=== PATIENT | female | born 1980 | race Caucasian/White ===

== ENCOUNTER 2018-09-22 06:23 | Inpatient (IN) | payer MEDICAID, OTHER ==
[2018-09-22] MEDS: LIDOCAINE 4% CR TOP (06:58)
[2018-09-22 07:08] LABS: ADD MAN DIFF? NO
[2018-09-22] MEDS: CEFTRIAXONE 2 GM/50 ML (PMX) 50 ML IVPB ×2 (07:08→20:27)
[2018-09-22] MEDS: NALOXONE (0.4 MG/ML) INJ IV (07:08)
[2018-09-22] MEDS: DEXAMETHASONE 10 MG/ML 1 ML INJ IV (07:08)
[2018-09-22] MEDS: SODIUM CHLORIDE 0.9% 1L BAG IV* (07:09)
[2018-09-22] MEDS: ACETAMINOPHEN 650 MG SUPP PR (07:10)
[2018-09-22 07:11] LABS: WHITE BLOOD COUNT 16.8 10^3/ul (4.8-10.8)
[2018-09-22 07:11] LABS: BASOPHILS % 0.2 % (0.0-2.0); EOSINOPHILS % 0.2 % (0.0-7.0); HEMOGLOBIN 13.5 g/dl (12.0-16.0); LYMPHOCYTES # 1.2 10^3/ul (0.8-2.9); LYMPHOCYTES % 7.1 % (15.0-51.0); MEAN CORPUSCULAR HEMOGLOBIN 29.6 pg (29.0-33.0); MEAN CORPUSCULAR HGB CONC 34.6 g/dl (32.0-37.0); MEAN CORPUSCULAR VOLUME 85.5 fl (82.0-101.0); MEAN PLATELET VOLUME 8.6 fl (7.4-10.4); MONOCYTE # 1.4 10^3/ul (0.3-0.9); MONOCYTES % 8.5 % (0.0-11.0); NEUTROPHILS % 83.2 % (39.0-77.0); PLATELET COUNT 338 10^3/UL (140-415); RED BLOOD COUNT 4.56 10^6/ul (4.20-5.40); RED CELL DISTRIBUTION WIDTH 11.8 % (11.5-14.5)
[2018-09-22 07:30] LABS: INR 1.11; PARTIAL THROMBOPLASTIN TIME 29.5 Sec (23.0-35.0); PROTIME 14.4 Sec (11.9-14.9); PT RATIO 1.1
[2018-09-22 07:35] LABS: ADD UMIC YES; UR AMORPHOUS CRYSTAL FEW /HPF (NONE SEEN); UR ASCORBIC ACID 40 mg/dL (NEGATIVE); UR BILIRUBIN (Dip) NEGATIVE (NEGATIVE); UR BLOOD (Dip) 2+ mg/dL (NEGATIVE); UR CLARITY CLOUDY (CLEAR); UR COLOR YELLOW (YELLOW); UR GLUCOSE (Dip) NEGATIVE (NEGATIVE); UR KETONES (Dip) NEGATIVE (NEGATIVE); UR LEUKOCYTE ESTERASE (Dip) NEGATIVE Leu/ul (NEGATIVE); UR NITRITE (Dip) NEGATIVE (NEGATIVE); UR RBC 45 /HPF (0-5); UR SPECIFIC GRAVITY (Dip) 1.019 (1.003-1.030); UR SQUAMOUS EPITHELIAL CELL FEW /HPF (FEW); UR TOTAL PROTEIN (Dip) NEGATIVE (NEGATIVE); UR UROBILINOGEN (Dip) NEGATIVE (NEGATIVE); UR WBC 6 /HPF (0-5)
[2018-09-22 07:36] LABS: CANNABINOIDS Negative (NEGATIVE)
[2018-09-22 07:40] LABS: OPIATES Positive (NEGATIVE)
[2018-09-22 07:41] LABS: ALANINE AMINOTRANSFERASE 17 IU/L (13-69); ALBUMIN 4.1 g/dl (3.3-4.9); ALBUMIN/GLOBULIN RATIO 1.13; ALKALINE PHOSPHATASE 46 IU/L (42-121); ANION GAP 12 (5-13); ASPARTATE AMINO TRANSFERASE 17 IU/L (15-46); BILIRUBIN,INDIRECT 0.8 mg/dl (0-1.1); BILIRUBIN,TOTAL 0.8 mg/dl (0.2-1.3); BLOOD UREA NITROGEN 16 mg/dl (7-20); CALCIUM 8.6 mg/dl (8.4-10.2); CARBON DIOXIDE 23 mmol/L (21-31); CHLORIDE 93 mmol/L (97-110); CREATININE 0.51 mg/dl (0.44-1.00); Estimated GFR > 60 mL/min (>60); GLUCOSE 126 mg/dl (70-220); POTASSIUM 4.4 mmol/L (3.5-5.1); SODIUM 128 mmol/L (135-144); TOTAL PROTEIN 7.7 g/dl (6.1-8.1)
[2018-09-22 07:46] LABS: AMPHETAMINE/METHAMPHETAMINE NEGATIVE (NEGATIVE); BARBITURATES NEGATIVE (NEGATIVE); BENZODIAZEPINES NEGATIVE (NEGATIVE); COCAINE NEGATIVE (NEGATIVE)
[2018-09-22 07:48] LABS: ACETAMINOPHEN < 10.0 ug/ml (10.0-30.0); SALICYLATE < 1.0 mg/dl (5.0-30.0)
[2018-09-22 07:49] LABS: CREATINE KINASE < 20 IU/L (23-200)
[2018-09-22 07:56] LABS: CK-MB < 0.22 ng/ml (0.0-2.4); TROPONIN-I < 0.012 ng/ml (0.000-0.120)
[2018-09-22 08:04] LABS: ETHANOL < 10.0 mg/dl (0-0)
[2018-09-22] MEDS: VANCOMYCIN 1 GM (PMX) 250 ML IVPB (09:27)
[2018-09-22] MEDS: SOD CHLORIDE 0.9% 1,000 ML IV ×4 (09:28→23:40)
[2018-09-22] MEDS: ONDANSETRON 4 MG INJ IV (10:37)
[2018-09-22 10:48] LABS: LACTIC ACID 1.3 mmol/L (0.5-2.0)
[2018-09-22] MEDS ORDERED: VANCOMYCIN IV PER PHARMACY XX (11:30)
[2018-09-22] MEDS ORDERED: NACL 0.9% 3 ML SYG IV (17:00)
[2018-09-22] MEDS ORDERED: VANCOMYCIN 1 GM 250 ML IVPB (18:00)
[2018-09-22] MEDS: DEXTROSE 5%-0.45% NACL 1,000 ML IV (18:11)
[2018-09-22] MEDS: ACYCLOVIR 500 MG in SOD CHLORIDE 0.9% 100 ML IVPB ×2 (18:11→22:59)
[2018-09-22] MEDS: VANCOMYCIN 1 GM 250 ML IVPB (20:35)
[2018-09-23 05:08] LABS: ADD MAN DIFF? NO
[2018-09-23 05:35] LABS: ALANINE AMINOTRANSFERASE 17 IU/L (13-69); ALBUMIN 3.1 g/dl (3.3-4.9); ALBUMIN/GLOBULIN RATIO 1.03; ALKALINE PHOSPHATASE 35 IU/L (42-121); ANION GAP 9 (5-13); ASPARTATE AMINO TRANSFERASE 21 IU/L (15-46); BILIRUBIN,INDIRECT 0.5 mg/dl (0-1.1); BILIRUBIN,TOTAL 0.5 mg/dl (0.2-1.3); BLOOD UREA NITROGEN 7 mg/dl (7-20); CALCIUM 7.2 mg/dl (8.4-10.2); CARBON DIOXIDE 19 mmol/L (21-31); CHLORIDE 109 mmol/L (97-110); CREATININE 0.34 mg/dl (0.44-1.00); Estimated GFR > 60 mL/min (>60); GLUCOSE 126 mg/dl (70-220); POTASSIUM 3.8 mmol/L (3.5-5.1); SODIUM 137 mmol/L (135-144); TOTAL PROTEIN 6.1 g/dl (6.1-8.1)
[2018-09-23] MEDS: DEXTROSE 5%-0.45% NACL 1,000 ML IV (05:55)
[2018-09-23] MEDS: ACYCLOVIR 500 MG in SOD CHLORIDE 0.9% 100 ML IVPB ×3 (05:55→21:18)
[2018-09-23 06:03] LABS: BASOPHILS % 0.2 % (0.0-2.0); EOSINOPHILS % 0.1 % (0.0-7.0); HEMATOCRIT 41.8 % (37.0-47.0); LYMPHOCYTES # 1.1 10^3/ul (0.8-2.9); LYMPHOCYTES % 7.1 % (15.0-51.0); MEAN CORPUSCULAR HEMOGLOBIN 30.2 pg (29.0-33.0); MEAN CORPUSCULAR HGB CONC 33.5 g/dl (32.0-37.0); MEAN CORPUSCULAR VOLUME 90.3 fl (82.0-101.0); MEAN PLATELET VOLUME 9.1 fl (7.4-10.4); MONOCYTES % 6.3 % (0.0-11.0); NEUTROPHIL # 13.1 10^3/ul (1.6-7.5); NEUTROPHILS % 85.5 % (39.0-77.0); PLATELET COUNT 275 10^3/UL (140-415); RED BLOOD COUNT 4.63 10^6/ul (4.20-5.40)
[2018-09-23 06:03] LABS: WHITE BLOOD COUNT 15.3 10^3/ul (4.8-10.8)
[2018-09-23 08:19] LABS: ERYTHROCYTE SEDIMENTATION RATE 48 mm/Hr (0-20)
[2018-09-23] MEDS: VANCOMYCIN 1 GM 250 ML IVPB ×2 (10:01→21:27)
[2018-09-23] MEDS: DOXYCYCLINE 100 MG TAB PO (10:14)
[2018-09-23] MEDS: CEFTRIAXONE 2 GM/50 ML (PMX) 50 ML IVPB ×2 (10:27→21:18)
[2018-09-23] MEDS: DOXYCYCLINE 100 MG in SOD CHLORIDE 0.9% 250 ML IVPB ×2 (12:51→21:29)
[2018-09-23 15:08] LABS: RAPID PLASMA REAGIN NONREACTIVE (NR)
[2018-09-23 16:11] LABS: CSF MN% 38.9 %; CSF PMN% 61.1 %; CSF RBC 0 /uL (0-0)
[2018-09-23 16:16] LABS: CSF MN% 48.2 %; CSF PMN% 51.8 %; CSF RBC 0 /uL (0-0)
[2018-09-23 16:20] LABS: TOTAL PROTEIN,CSF 120 mg/dl (12-60)
[2018-09-23 16:21] LABS: GLUCOSE,CSF < 20 mg/dl (50-80)
[2018-09-23 16:48] LABS: CSF COLOR COLORLESS
[2018-09-23 16:48] LABS: CSF CLARITY HAZY; CSF VOLUME 11.7 ml; CSF WBC 1261 /cmm (0-10); CSF#TUBE COUNT TUBE#1; CSF#TUBES REC'D 4
[2018-09-23 16:49] LABS: CSF CLARITY HAZY; CSF COLOR COLORLESS; CSF WBC 993 /cmm (0-10)
[2018-09-23 16:50] LABS: CSF VOLUME 11.5 ml; CSF#TUBE COUNT TUBE#4; CSF#TUBES REC'D 4
[2018-09-23 21:18] LABS: VANCOMYCIN,TROUGH < 5.0 ug/ml (10.0-20.0)
[2018-09-24] MEDS: ACYCLOVIR 500 MG in SOD CHLORIDE 0.9% 100 ML IVPB (05:06)
[2018-09-24] MEDS: VANCOMYCIN 1 GM 250 ML IVPB ×3 (05:11→21:13)
[2018-09-24 05:41] LABS: ADD MAN DIFF? NO
[2018-09-24 05:52] LABS: BASOPHILS % 0.2 % (0.0-2.0); EOSINOPHILS # 0.1 10^3/ul (0.0-0.5); EOSINOPHILS % 0.4 % (0.0-7.0); HEMATOCRIT 40.2 % (37.0-47.0); HEMOGLOBIN 14.6 g/dl (12.0-16.0); LYMPHOCYTES # 1.3 10^3/ul (0.8-2.9); LYMPHOCYTES % 7.4 % (15.0-51.0); MEAN CORPUSCULAR HGB CONC 36.3 g/dl (32.0-37.0); MEAN CORPUSCULAR VOLUME 82.5 fl (82.0-101.0); MEAN PLATELET VOLUME 8.3 fl (7.4-10.4); MONOCYTE # 1.4 10^3/ul (0.3-0.9); MONOCYTES % 8.1 % (0.0-11.0); NEUTROPHIL # 14.2 10^3/ul (1.6-7.5); NEUTROPHILS % 83.2 % (39.0-77.0); PLATELET COUNT 305 10^3/UL (140-415); RED BLOOD COUNT 4.87 10^6/ul (4.20-5.40); RED CELL DISTRIBUTION WIDTH 11.9 % (11.5-14.5)
[2018-09-24 05:52] LABS: WHITE BLOOD COUNT 17.1 10^3/ul (4.8-10.8)
[2018-09-24 06:06] LABS: ANION GAP 10 (5-13); BLOOD UREA NITROGEN 7 mg/dl (7-20); CALCIUM 7.9 mg/dl (8.4-10.2); CARBON DIOXIDE 26 mmol/L (21-31); CHLORIDE 92 mmol/L (97-110); CREATININE 0.41 mg/dl (0.44-1.00); Estimated GFR > 60 mL/min (>60); GLUCOSE 95 mg/dl (70-220); POTASSIUM 3.5 mmol/L (3.5-5.1); SODIUM 128 mmol/L (135-144)
[2018-09-24] MEDS: CEFTRIAXONE 2 GM/50 ML (PMX) 50 ML IVPB ×2 (08:37→21:13)
[2018-09-24] MEDS: DOXYCYCLINE 100 MG in SOD CHLORIDE 0.9% 250 ML IVPB ×2 (08:38→21:28)
[2018-09-24 13:27] LABS: ANA SCREEN NEGATIVE (NEGATIVE); ANCA SCREEN NEGATIVE (NEGATIVE); MYELOPEROXIDASE ANTIBODY <1.0 AI; PROTEINASE-3 ANTIBODY <1.0 AI
[2018-09-24] MEDS: ACETAMINOPHEN 500 MG TAB PO (15:19)
[2018-09-24 19:59] LABS: SODIUM,URINE RANDOM 156 mmol/L (30-90)
[2018-09-24 20:48] LABS: VANCOMYCIN,TROUGH 7.7 ug/ml (10.0-20.0)
[2018-09-25] MEDS: VANCOMYCIN HCL 1.25 GM in SOD CHLORIDE 0.9% 250 ML IVPB ×3 (04:45→20:34)
[2018-09-25 08:39] LABS: ADD MAN DIFF? NO
[2018-09-25 08:49] LABS: WHITE BLOOD COUNT 13.8 10^3/ul (4.8-10.8)
[2018-09-25 08:49] LABS: BASOPHILS % 0.1 % (0.0-2.0); EOSINOPHILS % 0.1 % (0.0-7.0); HEMATOCRIT 36.9 % (37.0-47.0); HEMOGLOBIN 13.2 g/dl (12.0-16.0); LYMPHOCYTES # 0.7 10^3/ul (0.8-2.9); LYMPHOCYTES % 4.9 % (15.0-51.0); MEAN CORPUSCULAR HEMOGLOBIN 29.6 pg (29.0-33.0); MEAN CORPUSCULAR HGB CONC 35.8 g/dl (32.0-37.0); MEAN CORPUSCULAR VOLUME 82.7 fl (82.0-101.0); MEAN PLATELET VOLUME 7.9 fl (7.4-10.4); MONOCYTES % 7.5 % (0.0-11.0); NEUTROPHIL # 11.9 10^3/ul (1.6-7.5); NEUTROPHILS % 86.8 % (39.0-77.0); PLATELET COUNT 302 10^3/UL (140-415); RED BLOOD COUNT 4.46 10^6/ul (4.20-5.40); RED CELL DISTRIBUTION WIDTH 11.9 % (11.5-14.5)
[2018-09-25 09:07] LABS: ANION GAP 9 (5-13); BLOOD UREA NITROGEN 7 mg/dl (7-20); CALCIUM 7.7 mg/dl (8.4-10.2); CARBON DIOXIDE 26 mmol/L (21-31); CHLORIDE 91 mmol/L (97-110); CREATININE 0.39 mg/dl (0.44-1.00); Estimated GFR > 60 mL/min (>60); GLUCOSE 139 mg/dl (70-220); POTASSIUM 3.5 mmol/L (3.5-5.1); SODIUM 126 mmol/L (135-144)
[2018-09-25] MEDS: CEFTRIAXONE 2 GM/50 ML (PMX) 50 ML IVPB ×2 (09:56→20:34)
[2018-09-25] MEDS: DOXYCYCLINE 100 MG in SOD CHLORIDE 0.9% 250 ML IVPB ×2 (10:41→20:34)
[2018-09-25 10:45] LABS: PROCALCITONIN 0.06 ng/mL (0.00-0.10)
[2018-09-25] MEDS: ACETAMINOPHEN 650MG/20.3ML CUP NGT (12:45)
[2018-09-25] MEDS: SODIUM CHLORIDE 1 GM TAB PO ×2 (13:39→20:34)
[2018-09-26 04:11] LABS: ADD MAN DIFF? NO
[2018-09-26 04:16] LABS: WHITE BLOOD COUNT 13.9 10^3/ul (4.8-10.8)
[2018-09-26 04:16] LABS: BASOPHILS % 0.2 % (0.0-2.0); EOSINOPHILS # 0.1 10^3/ul (0.0-0.5); EOSINOPHILS % 0.6 % (0.0-7.0); HEMATOCRIT 36.3 % (37.0-47.0); HEMOGLOBIN 12.9 g/dl (12.0-16.0); LYMPHOCYTES # 0.6 10^3/ul (0.8-2.9); LYMPHOCYTES % 4.6 % (15.0-51.0); MEAN CORPUSCULAR HEMOGLOBIN 29.6 pg (29.0-33.0); MEAN CORPUSCULAR HGB CONC 35.5 g/dl (32.0-37.0); MEAN CORPUSCULAR VOLUME 83.3 fl (82.0-101.0); MEAN PLATELET VOLUME 7.9 fl (7.4-10.4); MONOCYTE # 0.9 10^3/ul (0.3-0.9); MONOCYTES % 6.2 % (0.0-11.0); NEUTROPHIL # 12.2 10^3/ul (1.6-7.5); NEUTROPHILS % 87.8 % (39.0-77.0); PLATELET COUNT 273 10^3/UL (140-415); RED BLOOD COUNT 4.36 10^6/ul (4.20-5.40); RED CELL DISTRIBUTION WIDTH 11.7 % (11.5-14.5)
[2018-09-26 04:53] LABS: ANION GAP 10 (5-13); BLOOD UREA NITROGEN 8 mg/dl (7-20); CALCIUM 7.9 mg/dl (8.4-10.2); CARBON DIOXIDE 25 mmol/L (21-31); CHLORIDE 93 mmol/L (97-110); CREATININE 0.37 mg/dl (0.44-1.00); Estimated GFR > 60 mL/min (>60); GLUCOSE 154 mg/dl (70-220); POTASSIUM 3.6 mmol/L (3.5-5.1); SODIUM 128 mmol/L (135-144)
[2018-09-26 04:56] LABS: VANCOMYCIN,TROUGH 10.8 ug/ml (10.0-20.0)
[2018-09-26] MEDS: ACETAMINOPHEN 650MG/20.3ML CUP NGT ×2 (05:03→16:16)
[2018-09-26] MEDS: VANCOMYCIN HCL 1.25 GM in SOD CHLORIDE 0.9% 250 ML IVPB (05:09)
[2018-09-26] MEDS: SODIUM CHLORIDE 1 GM TAB PO ×3 (09:28→20:09)
[2018-09-26] MEDS: CEFTRIAXONE 2 GM/50 ML (PMX) 50 ML IVPB ×2 (09:28→20:06)
[2018-09-26] MEDS: DOXYCYCLINE 100 MG in SOD CHLORIDE 0.9% 250 ML IVPB ×2 (09:39→20:09)
[2018-09-26 11:23] LABS: ADD UMIC YES; UR ASCORBIC ACID 40 mg/dL (NEGATIVE); UR BACTERIA FEW /HPF (NONE SEEN); UR BILIRUBIN (Dip) NEGATIVE (NEGATIVE); UR BLOOD (Dip) 1+ mg/dL (NEGATIVE); UR CLARITY CLOUDY (CLEAR); UR COLOR YELLOW (YELLOW); UR GLUCOSE (Dip) NEGATIVE (NEGATIVE); UR GRANULAR CAST FEW /HPF (NONE SEEN); UR KETONES (Dip) NEGATIVE (NEGATIVE); UR LEUKOCYTE ESTERASE (Dip) NEGATIVE Leu/ul (NEGATIVE); UR MUCUS MODERATE /HPF (NONE SEEN); UR NITRITE (Dip) NEGATIVE (NEGATIVE); UR RBC 36 /HPF (0-5); UR SPECIFIC GRAVITY (Dip) 1.023 (1.003-1.030); UR TOTAL PROTEIN (Dip) 1+ mg/dl (NEGATIVE); UR UROBILINOGEN (Dip) NEGATIVE (NEGATIVE); UR WBC 8 /HPF (0-5)
[2018-09-26] MEDS: VANCOMYCIN HCL 1.5 GM in SOD CHLORIDE 0.9% 250 ML IVPB ×2 (13:00→20:52)
[2018-09-26 21:26] LABS: HERPES SIMPLEX 1 DNA NOT DETECTED; HERPES SIMPLEX 2 DNA NOT DETECTED; HERPES SIMPLEX PCR SOURCE CEREBROSPINAL FLUID
[2018-09-27] MEDS: VANCOMYCIN HCL 1.5 GM in SOD CHLORIDE 0.9% 250 ML IVPB ×4 (04:49→21:58)
[2018-09-27 05:40] LABS: ADD MAN DIFF? NO
[2018-09-27 05:52] LABS: BASOPHILS % 0.1 % (0.0-2.0); EOSINOPHILS # 0.2 10^3/ul (0.0-0.5); EOSINOPHILS % 1.2 % (0.0-7.0); HEMATOCRIT 37.7 % (37.0-47.0); HEMOGLOBIN 13.5 g/dl (12.0-16.0); LYMPHOCYTES # 0.6 10^3/ul (0.8-2.9); LYMPHOCYTES % 4.4 % (15.0-51.0); MEAN CORPUSCULAR HGB CONC 35.8 g/dl (32.0-37.0); MEAN CORPUSCULAR VOLUME 83.8 fl (82.0-101.0); MEAN PLATELET VOLUME 8.6 fl (7.4-10.4); MONOCYTE # 0.8 10^3/ul (0.3-0.9); MONOCYTES % 5.8 % (0.0-11.0); NEUTROPHIL # 12.3 10^3/ul (1.6-7.5); NEUTROPHILS % 87.9 % (39.0-77.0); PLATELET COUNT 287 10^3/UL (140-415); RED CELL DISTRIBUTION WIDTH 11.9 % (11.5-14.5)
[2018-09-27 06:16] LABS: ALANINE AMINOTRANSFERASE 23 IU/L (13-69); ALBUMIN 3.5 g/dl (3.3-4.9); ALBUMIN/GLOBULIN RATIO 1.12; ALKALINE PHOSPHATASE 47 IU/L (42-121); ANION GAP 11 (5-13); ASPARTATE AMINO TRANSFERASE 19 IU/L (15-46); BILIRUBIN,INDIRECT 0.5 mg/dl (0-1.1); BILIRUBIN,TOTAL 0.5 mg/dl (0.2-1.3); BLOOD UREA NITROGEN 8 mg/dl (7-20); CALCIUM 8.3 mg/dl (8.4-10.2); CARBON DIOXIDE 26 mmol/L (21-31); CHLORIDE 93 mmol/L (97-110); CREATININE 0.34 mg/dl (0.44-1.00); Estimated GFR > 60 mL/min (>60); GLUCOSE 138 mg/dl (70-220); POTASSIUM 3.7 mmol/L (3.5-5.1); SODIUM 130 mmol/L (135-144); TOTAL PROTEIN 6.6 g/dl (6.1-8.1)
[2018-09-27] MEDS: ACETAMINOPHEN 650MG/20.3ML CUP NGT ×2 (06:18→16:03)
[2018-09-27] MEDS: CEFTRIAXONE 2 GM/50 ML (PMX) 50 ML IVPB ×2 (08:56→20:59)
[2018-09-27] MEDS: FLUCONAZOLE 200 MG TAB NGT (08:56)
[2018-09-27] MEDS: DOXYCYCLINE 100 MG in SOD CHLORIDE 0.9% 250 ML IVPB ×2 (08:57→22:02)
[2018-09-27] MEDS: SODIUM CHLORIDE 1 GM TAB PO ×3 (08:57→21:11)
[2018-09-27 21:12] LABS: VANCOMYCIN,TROUGH 15.6 ug/ml (10.0-20.0)
[2018-09-27 21:21] LABS: VDRL, CSF NON-REACTIVE
[2018-09-28] MEDS: VANCOMYCIN HCL 1.5 GM in SOD CHLORIDE 0.9% 250 ML IVPB ×3 (04:58→21:50)
[2018-09-28 05:17] LABS: ADD MAN DIFF? NO
[2018-09-28 05:21] LABS: ABNORMAL IP MESSAGE 1; BASOPHILS % 0.3 % (0.0-2.0); EOSINOPHILS # 0.2 10^3/ul (0.0-0.5); EOSINOPHILS % 1.6 % (0.0-7.0); HEMATOCRIT 37.2 % (37.0-47.0); HEMOGLOBIN 12.9 g/dl (12.0-16.0); LYMPHOCYTES # 0.6 10^3/ul (0.8-2.9); LYMPHOCYTES % 5.1 % (15.0-51.0); MEAN CORPUSCULAR HEMOGLOBIN 29.3 pg (29.0-33.0); MEAN CORPUSCULAR HGB CONC 34.7 g/dl (32.0-37.0); MEAN CORPUSCULAR VOLUME 84.4 fl (82.0-101.0); MONOCYTE # 0.7 10^3/ul (0.3-0.9); MONOCYTES % 6.2 % (0.0-11.0); NEUTROPHILS % 86.4 % (39.0-77.0); PLATELET COUNT 270 10^3/UL (140-415); RED BLOOD COUNT 4.41 10^6/ul (4.20-5.40)
[2018-09-28 05:21] LABS: WHITE BLOOD COUNT 11.5 10^3/ul (4.8-10.8)
[2018-09-28 05:43] LABS: POSITIVE DIFF @See below
[2018-09-28 06:11] LABS: ANION GAP 12 (5-13); BLOOD UREA NITROGEN 9 mg/dl (7-20); CALCIUM 8.4 mg/dl (8.4-10.2); CARBON DIOXIDE 25 mmol/L (21-31); CHLORIDE 94 mmol/L (97-110); CREATININE 0.39 mg/dl (0.44-1.00); Estimated GFR > 60 mL/min (>60); GLUCOSE 137 mg/dl (70-220); MAGNESIUM 2.1 mg/dl (1.7-2.5); PHOSPHORUS 2.3 mg/dl (2.5-4.9); POTASSIUM 3.8 mmol/L (3.5-5.1); SODIUM 131 mmol/L (135-144)
[2018-09-28] MEDS: SODIUM CHLORIDE 1 GM TAB PO ×3 (08:46→21:50)
[2018-09-28] MEDS: CEFTRIAXONE 2 GM/50 ML (PMX) 50 ML IVPB ×2 (08:47→21:50)
[2018-09-28] MEDS: FLUCONAZOLE 200 MG TAB NGT (08:47)
[2018-09-28] MEDS: ACETAMINOPHEN 650MG/20.3ML CUP NGT (08:51)
[2018-09-28] MEDS: DOXYCYCLINE 100 MG in SOD CHLORIDE 0.9% 250 ML IVPB ×2 (09:26→21:52)
[2018-09-28] MEDS: FENTAnyl 50 MCG/ML VIAL ×2 (11:06→11:07)
[2018-09-28] MEDS: MIDAZOLAM 1 MG/ML 2 ML INJ ×2 (11:07)
[2018-09-28] MEDS: ASPIRIN (EC) 325 MG TAB PO (11:30)
[2018-09-28] MEDS: ASPIRIN 325 MG TAB NGT (12:53)
[2018-09-29 04:56] LABS: ADD MAN DIFF? NO
[2018-09-29] MEDS: VANCOMYCIN HCL 1.5 GM in SOD CHLORIDE 0.9% 250 ML IVPB ×3 (05:01→21:20)
[2018-09-29 05:04] LABS: BASOPHILS % 0.3 % (0.0-2.0); EOSINOPHILS # 0.2 10^3/ul (0.0-0.5); EOSINOPHILS % 1.9 % (0.0-7.0); HEMATOCRIT 35.2 % (37.0-47.0); HEMOGLOBIN 12.2 g/dl (12.0-16.0); LYMPHOCYTES # 0.7 10^3/ul (0.8-2.9); LYMPHOCYTES % 5.6 % (15.0-51.0); MEAN CORPUSCULAR HEMOGLOBIN 29.3 pg (29.0-33.0); MEAN CORPUSCULAR HGB CONC 34.7 g/dl (32.0-37.0); MEAN CORPUSCULAR VOLUME 84.6 fl (82.0-101.0); MEAN PLATELET VOLUME 8.1 fl (7.4-10.4); MONOCYTE # 0.7 10^3/ul (0.3-0.9); NEUTROPHIL # 10.6 10^3/ul (1.6-7.5); NEUTROPHILS % 85.6 % (39.0-77.0); PLATELET COUNT 271 10^3/UL (140-415); RED BLOOD COUNT 4.16 10^6/ul (4.20-5.40); RED CELL DISTRIBUTION WIDTH 12.1 % (11.5-14.5)
[2018-09-29 05:04] LABS: WHITE BLOOD COUNT 12.4 10^3/ul (4.8-10.8)
[2018-09-29 05:34] LABS: ANION GAP 11 (5-13); BLOOD UREA NITROGEN 10 mg/dl (7-20); CALCIUM 8.7 mg/dl (8.4-10.2); CARBON DIOXIDE 27 mmol/L (21-31); CHLORIDE 95 mmol/L (97-110); CREATININE 0.41 mg/dl (0.44-1.00); Estimated GFR > 60 mL/min (>60); GLUCOSE 139 mg/dl (70-220); MAGNESIUM 2.1 mg/dl (1.7-2.5); PHOSPHORUS 3.8 mg/dl (2.5-4.9); POTASSIUM 3.4 mmol/L (3.5-5.1); SODIUM 133 mmol/L (135-144)
[2018-09-29] MEDS: POTASSIUM CHLORIDE 20 MEQ POWDER FOR ORAL SOLN NGT (08:06)
[2018-09-29] MEDS: SODIUM CHLORIDE 1 GM TAB PO ×3 (08:06→21:20)
[2018-09-29] MEDS: ASPIRIN 81 MG TAB NGT (08:06)
[2018-09-29] MEDS: CEFTRIAXONE 2 GM/50 ML (PMX) 50 ML IVPB ×2 (08:07→21:20)
[2018-09-29] MEDS: FLUCONAZOLE 200 MG TAB NGT (08:07)
[2018-09-29] MEDS: DOXYCYCLINE 100 MG in SOD CHLORIDE 0.9% 250 ML IVPB (08:17)
[2018-09-29] MEDS ORDERED: ASPIRIN (EC) 81 MG TAB PO (09:00)
[2018-09-29 10:31] LABS: NIL 0.02 IU/mL; QUANTIFERON(R)-TB GOLD NEGATIVE (NEGATIVE)
[2018-09-30] MEDS: VANCOMYCIN HCL 1.5 GM in SOD CHLORIDE 0.9% 250 ML IVPB ×3 (05:12→22:07)
[2018-09-30 05:18] LABS: ADD MAN DIFF? NO
[2018-09-30 05:22] LABS: BASOPHILS % 0.4 % (0.0-2.0); EOSINOPHILS # 0.2 10^3/ul (0.0-0.5); EOSINOPHILS % 2.3 % (0.0-7.0); HEMATOCRIT 38.3 % (37.0-47.0); HEMOGLOBIN 13.1 g/dl (12.0-16.0); LYMPHOCYTES # 0.8 10^3/ul (0.8-2.9); LYMPHOCYTES % 8.1 % (15.0-51.0); MEAN CORPUSCULAR HEMOGLOBIN 29.4 pg (29.0-33.0); MEAN CORPUSCULAR HGB CONC 34.2 g/dl (32.0-37.0); MEAN CORPUSCULAR VOLUME 85.9 fl (82.0-101.0); MEAN PLATELET VOLUME 8.1 fl (7.4-10.4); MONOCYTE # 0.7 10^3/ul (0.3-0.9); MONOCYTES % 6.4 % (0.0-11.0); NEUTROPHIL # 8.3 10^3/ul (1.6-7.5); NEUTROPHILS % 82.4 % (39.0-77.0); PLATELET COUNT 253 10^3/UL (140-415); RED BLOOD COUNT 4.46 10^6/ul (4.20-5.40); RED CELL DISTRIBUTION WIDTH 12.3 % (11.5-14.5)
[2018-09-30 05:22] LABS: WHITE BLOOD COUNT 10.1 10^3/ul (4.8-10.8)
[2018-09-30 05:41] LABS: ANION GAP 9 (5-13); BLOOD UREA NITROGEN 12 mg/dl (7-20); CARBON DIOXIDE 30 mmol/L (21-31); CHLORIDE 96 mmol/L (97-110); CREATININE 0.37 mg/dl (0.44-1.00); Estimated GFR > 60 mL/min (>60); GLUCOSE 124 mg/dl (70-220); MAGNESIUM 2.2 mg/dl (1.7-2.5); PHOSPHORUS 4.1 mg/dl (2.5-4.9); POTASSIUM 4.1 mmol/L (3.5-5.1); SODIUM 135 mmol/L (135-144)
[2018-09-30] MEDS: FLUCONAZOLE 200 MG TAB NGT (09:22)
[2018-09-30] MEDS: ASPIRIN 81 MG TAB NGT (09:22)
[2018-09-30] MEDS: SODIUM CHLORIDE 1 GM TAB PO ×3 (09:22→22:06)
[2018-09-30] MEDS: CEFTRIAXONE 2 GM/50 ML (PMX) 50 ML IVPB ×2 (09:23→23:30)
[2018-09-30] MEDS: ACETAMINOPHEN 650MG/20.3ML CUP NGT ×2 (09:52→23:37)
[2018-09-30 20:50] LABS: VANCOMYCIN,TROUGH 13.8 ug/ml (10.0-20.0)
[2018-10-01] MEDS: VANCOMYCIN HCL 1.5 GM in SOD CHLORIDE 0.9% 250 ML IVPB ×3 (04:57→21:34)
[2018-10-01 05:46] LABS: ADD MAN DIFF? NO
[2018-10-01 05:55] LABS: WHITE BLOOD COUNT 10.6 10^3/ul (4.8-10.8)
[2018-10-01 05:55] LABS: BASOPHILS % 0.4 % (0.0-2.0); EOSINOPHILS # 0.2 10^3/ul (0.0-0.5); EOSINOPHILS % 2.3 % (0.0-7.0); HEMATOCRIT 38.4 % (37.0-47.0); HEMOGLOBIN 12.9 g/dl (12.0-16.0); LYMPHOCYTES # 0.7 10^3/ul (0.8-2.9); LYMPHOCYTES % 6.6 % (15.0-51.0); MEAN CORPUSCULAR HEMOGLOBIN 29.1 pg (29.0-33.0); MEAN CORPUSCULAR HGB CONC 33.6 g/dl (32.0-37.0); MEAN CORPUSCULAR VOLUME 86.7 fl (82.0-101.0); MONOCYTE # 0.6 10^3/ul (0.3-0.9); MONOCYTES % 5.6 % (0.0-11.0); NEUTROPHIL # 8.9 10^3/ul (1.6-7.5); NEUTROPHILS % 84.6 % (39.0-77.0); PLATELET COUNT 251 10^3/UL (140-415); RED BLOOD COUNT 4.43 10^6/ul (4.20-5.40); RED CELL DISTRIBUTION WIDTH 12.3 % (11.5-14.5)
[2018-10-01 06:47] LABS: ANION GAP 10 (5-13); BLOOD UREA NITROGEN 13 mg/dl (7-20); CALCIUM 8.9 mg/dl (8.4-10.2); CARBON DIOXIDE 30 mmol/L (21-31); CHLORIDE 97 mmol/L (97-110); CREATININE 0.41 mg/dl (0.44-1.00); Estimated GFR > 60 mL/min (>60); GLUCOSE 131 mg/dl (70-220); MAGNESIUM 2.2 mg/dl (1.7-2.5); PHOSPHORUS 4.1 mg/dl (2.5-4.9); POTASSIUM 3.9 mmol/L (3.5-5.1); SODIUM 137 mmol/L (135-144)
[2018-10-01] MEDS: CEFTRIAXONE 2 GM/50 ML (PMX) 50 ML IVPB ×2 (09:41→21:34)
[2018-10-01] MEDS: FLUCONAZOLE 200 MG TAB NGT (09:41)
[2018-10-01] MEDS: ASPIRIN 81 MG TAB NGT (09:41)
[2018-10-02 01:06] LABS: ADD UMIC YES; UR AMORPHOUS CRYSTAL MODERATE /HPF (NONE SEEN); UR ASCORBIC ACID 20 mg/dL (NEGATIVE); UR BILIRUBIN (Dip) NEGATIVE (NEGATIVE); UR BLOOD (Dip) 2+ mg/dL (NEGATIVE); UR CLARITY CLOUDY (CLEAR); UR COLOR YELLOW (YELLOW); UR GLUCOSE (Dip) NEGATIVE (NEGATIVE); UR KETONES (Dip) NEGATIVE (NEGATIVE); UR LEUKOCYTE ESTERASE (Dip) NEGATIVE Leu/ul (NEGATIVE); UR MUCUS FEW /HPF (NONE SEEN); UR NITRITE (Dip) NEGATIVE (NEGATIVE); UR RBC 89 /HPF (0-5); UR SPECIFIC GRAVITY (Dip) 1.016 (1.003-1.030); UR SQUAMOUS EPITHELIAL CELL FEW /HPF (FEW); UR TOTAL PROTEIN (Dip) NEGATIVE (NEGATIVE); UR UROBILINOGEN (Dip) NEGATIVE (NEGATIVE); UR WBC 9 /HPF (0-5)
[2018-10-02 01:27] LABS: CREATININE,URINE RANDOM 44.01 mg/dl (20-320)
[2018-10-02 01:27] LABS: SODIUM,URINE RANDOM 134 mmol/L (30-90)
[2018-10-02] MEDS: VANCOMYCIN HCL 1.5 GM in SOD CHLORIDE 0.9% 250 ML IVPB ×3 (04:59→20:36)
[2018-10-02 06:32] LABS: ANION GAP 10 (5-13); BLOOD UREA NITROGEN 15 mg/dl (7-20); CALCIUM 8.8 mg/dl (8.4-10.2); CARBON DIOXIDE 29 mmol/L (21-31); CHLORIDE 97 mmol/L (97-110); CREATININE 0.43 mg/dl (0.44-1.00); Estimated GFR > 60 mL/min (>60); GLUCOSE 152 mg/dl (70-220); MAGNESIUM 2.3 mg/dl (1.7-2.5); PHOSPHORUS 4.2 mg/dl (2.5-4.9); POTASSIUM 4.2 mmol/L (3.5-5.1); SODIUM 136 mmol/L (135-144)
[2018-10-02] MEDS: CEFTRIAXONE 2 GM/50 ML (PMX) 50 ML IVPB ×2 (09:01→20:36)
[2018-10-02] MEDS: ASPIRIN 81 MG TAB NGT (09:02)
[2018-10-02] MEDS: FLUCONAZOLE 200 MG TAB NGT (09:02)
[2018-10-02] MEDS: ACETAMINOPHEN 650MG/20.3ML CUP NGT (20:36)
[2018-10-03] MEDS: VANCOMYCIN HCL 1.5 GM in SOD CHLORIDE 0.9% 250 ML IVPB ×3 (05:08→23:17)
[2018-10-03] MEDS: CEFTRIAXONE 2 GM/50 ML (PMX) 50 ML IVPB ×2 (09:06→22:11)
[2018-10-03] MEDS: ASPIRIN 81 MG TAB NGT (11:12)
[2018-10-03 15:58] LABS: ADD UMIC YES; UR AMORPHOUS CRYSTAL MODERATE /HPF (NONE SEEN); UR ASCORBIC ACID 40 mg/dL (NEGATIVE); UR BACTERIA FEW /HPF (NONE SEEN); UR BILIRUBIN (Dip) NEGATIVE (NEGATIVE); UR BLOOD (Dip) 2+ mg/dL (NEGATIVE); UR CLARITY CLOUDY (CLEAR); UR COLOR YELLOW (YELLOW); UR GLUCOSE (Dip) NEGATIVE (NEGATIVE); UR KETONES (Dip) NEGATIVE (NEGATIVE); UR LEUKOCYTE ESTERASE (Dip) NEGATIVE Leu/ul (NEGATIVE); UR MUCUS FEW /HPF (NONE SEEN); UR NITRITE (Dip) NEGATIVE (NEGATIVE); UR RBC 159 /HPF (0-5); UR SPECIFIC GRAVITY (Dip) 1.018 (1.003-1.030); UR TOTAL PROTEIN (Dip) NEGATIVE (NEGATIVE); UR UROBILINOGEN (Dip) NEGATIVE (NEGATIVE); UR WBC 15 /HPF (0-5)
[2018-10-03 16:01] LABS: CREATININE,URINE RANDOM 56.54 mg/dl (20-320)
[2018-10-03 16:01] LABS: SODIUM,URINE RANDOM 85 mmol/L (30-90)
[2018-10-03] MEDS: ACETAMINOPHEN 650MG/20.3ML CUP NGT (18:50)
[2018-10-04] MEDS: VANCOMYCIN HCL 1.5 GM in SOD CHLORIDE 0.9% 250 ML IVPB ×2 (05:27→13:05)
[2018-10-04 05:51] LABS: BLOOD UREA NITROGEN 17 mg/dl (7-20)
[2018-10-04 05:51] LABS: CREATININE 0.45 mg/dl (0.44-1.00)
[2018-10-04] MEDS: ACETAMINOPHEN 650MG/20.3ML CUP NGT (07:33)
[2018-10-04] MEDS: ASPIRIN 81 MG TAB NGT (08:23)
[2018-10-04] MEDS: CEFTRIAXONE 2 GM/50 ML (PMX) 50 ML IVPB ×2 (08:25→20:59)
[2018-10-04] MEDS: LISINOPRIL 5 MG TAB GTB (08:25)
[2018-10-04 12:51] LABS: VANCOMYCIN,TROUGH 17.5 ug/ml (10.0-20.0)
[2018-10-04] MEDS ORDERED: VANCOMYCIN HCL 1.25 GM in SOD CHLORIDE 0.9% 250 ML IVPB (21:00)
[2018-10-05] MEDS ORDERED: VANCOMYCIN HCL 1.25 GM in SOD CHLORIDE 0.9% 250 ML IVPB (02:00)
[2018-10-05] MEDS: VANCOMYCIN HCL 1.25 GM in SOD CHLORIDE 0.9% 250 ML IVPB ×3 (03:00→18:32)
[2018-10-05 05:52] LABS: ADD MAN DIFF? NO
[2018-10-05 05:54] LABS: WHITE BLOOD COUNT 7.9 10^3/ul (4.8-10.8)
[2018-10-05 05:54] LABS: BASOPHILS % 0.4 % (0.0-2.0); EOSINOPHILS # 0.2 10^3/ul (0.0-0.5); HEMATOCRIT 37.3 % (37.0-47.0); HEMOGLOBIN 12.5 g/dl (12.0-16.0); LYMPHOCYTES # 0.7 10^3/ul (0.8-2.9); LYMPHOCYTES % 8.5 % (15.0-51.0); MEAN CORPUSCULAR HEMOGLOBIN 29.1 pg (29.0-33.0); MEAN CORPUSCULAR HGB CONC 33.5 g/dl (32.0-37.0); MEAN CORPUSCULAR VOLUME 86.9 fl (82.0-101.0); MEAN PLATELET VOLUME 8.3 fl (7.4-10.4); MONOCYTE # 0.5 10^3/ul (0.3-0.9); MONOCYTES % 6.2 % (0.0-11.0); NEUTROPHIL # 6.5 10^3/ul (1.6-7.5); NEUTROPHILS % 81.5 % (39.0-77.0); PLATELET COUNT 274 10^3/UL (140-415); RED BLOOD COUNT 4.29 10^6/ul (4.20-5.40); RED CELL DISTRIBUTION WIDTH 12.1 % (11.5-14.5)
[2018-10-05 06:14] LABS: ALANINE AMINOTRANSFERASE 52 IU/L (13-69); ALBUMIN 3.5 g/dl (3.3-4.9); ALBUMIN/GLOBULIN RATIO 1.02; ALKALINE PHOSPHATASE 53 IU/L (42-121); ANION GAP 9 (5-13); ASPARTATE AMINO TRANSFERASE 47 IU/L (15-46); BILIRUBIN,INDIRECT 0.3 mg/dl (0-1.1); BILIRUBIN,TOTAL 0.3 mg/dl (0.2-1.3); BLOOD UREA NITROGEN 16 mg/dl (7-20); CALCIUM 9.1 mg/dl (8.4-10.2); CARBON DIOXIDE 29 mmol/L (21-31); CHLORIDE 103 mmol/L (97-110); CREATININE 0.45 mg/dl (0.44-1.00); Estimated GFR > 60 mL/min (>60); GLUCOSE 130 mg/dl (70-220); POTASSIUM 4.1 mmol/L (3.5-5.1); SODIUM 141 mmol/L (135-144); TOTAL PROTEIN 6.9 g/dl (6.1-8.1)
[2018-10-05 07:05] LABS: PROCALCITONIN 0.06 ng/mL (0.00-0.10)
[2018-10-05] MEDS: ACETAMINOPHEN 650MG/20.3ML CUP NGT (07:46)
[2018-10-05] MEDS: LISINOPRIL 5 MG TAB GTB (08:40)
[2018-10-05] MEDS: ASPIRIN 81 MG TAB NGT (08:40)
[2018-10-05] MEDS: CEFTRIAXONE 2 GM/50 ML (PMX) 50 ML IVPB ×2 (08:42→21:59)
[2018-10-05 13:03] LABS: ADD UMIC YES; UR ASCORBIC ACID 40 mg/dL (NEGATIVE); UR BACTERIA FEW /HPF (NONE SEEN); UR BILIRUBIN (Dip) NEGATIVE (NEGATIVE); UR BLOOD (Dip) 2+ mg/dL (NEGATIVE); UR CLARITY CLOUDY (CLEAR); UR COLOR YELLOW (YELLOW); UR GLUCOSE (Dip) NEGATIVE (NEGATIVE); UR KETONES (Dip) NEGATIVE (NEGATIVE); UR LEUKOCYTE ESTERASE (Dip) NEGATIVE Leu/ul (NEGATIVE); UR MUCUS FEW /HPF (NONE SEEN); UR NITRITE (Dip) NEGATIVE (NEGATIVE); UR RBC 37 /HPF (0-5); UR SPECIFIC GRAVITY (Dip) 1.023 (1.003-1.030); UR SQUAMOUS EPITHELIAL CELL FEW /HPF (FEW); UR TOTAL PROTEIN (Dip) NEGATIVE (NEGATIVE); UR UROBILINOGEN (Dip) NEGATIVE (NEGATIVE); UR WBC 24 /HPF (0-5)
[2018-10-05 14:27] LABS: CREATININE, RANDOM URINE 48 mg/dL (20-275); CREATININE, RANDOM URINE 63 mg/dL (20-275); MICROALBUMIN 3.1 mg/dL; MICROALBUMIN/CREATININE RATIO 48 (<30); MICROALBUMIN/CREATININE RATIO 65 (<30)
[2018-10-06] MEDS: VANCOMYCIN HCL 1.25 GM in SOD CHLORIDE 0.9% 250 ML IVPB ×3 (03:30→18:32)
[2018-10-06] MEDS: ASPIRIN 81 MG TAB NGT (08:29)
[2018-10-06] MEDS: LISINOPRIL 5 MG TAB GTB (08:30)
[2018-10-06] MEDS: CEFTRIAXONE 2 GM/50 ML (PMX) 50 ML IVPB ×2 (08:30→22:23)
[2018-10-06 10:53] LABS: VANCOMYCIN,TROUGH 16.4 ug/ml (10.0-20.0)
[2018-10-06] MEDS: ACETAMINOPHEN 650MG/20.3ML CUP NGT (14:25)
[2018-10-07] MEDS: ACETAMINOPHEN 650MG/20.3ML CUP NGT ×2 (02:30→13:41)
[2018-10-07 04:04] LABS: ADD MAN DIFF? NO
[2018-10-07 04:05] LABS: WHITE BLOOD COUNT 8.1 10^3/ul (4.8-10.8)
[2018-10-07 04:05] LABS: ABNORMAL IP MESSAGE 1; BASOPHIL # 0.1 10^3/ul (0.0-0.1); BASOPHILS % 0.6 % (0.0-2.0); EOSINOPHILS # 0.2 10^3/ul (0.0-0.5); HEMATOCRIT 37.8 % (37.0-47.0); HEMOGLOBIN 12.5 g/dl (12.0-16.0); LYMPHOCYTES # 0.5 10^3/ul (0.8-2.9); MEAN CORPUSCULAR HEMOGLOBIN 29.6 pg (29.0-33.0); MEAN CORPUSCULAR HGB CONC 33.1 g/dl (32.0-37.0); MEAN CORPUSCULAR VOLUME 89.6 fl (82.0-101.0); MEAN PLATELET VOLUME 8.5 fl (7.4-10.4); MONOCYTE # 0.4 10^3/ul (0.3-0.9); MONOCYTES % 5.4 % (0.0-11.0); NEUTROPHIL # 6.9 10^3/ul (1.6-7.5); NEUTROPHILS % 85.4 % (39.0-77.0); PLATELET COUNT 302 10^3/UL (140-415); RED BLOOD COUNT 4.22 10^6/ul (4.20-5.40); RED CELL DISTRIBUTION WIDTH 12.4 % (11.5-14.5)
[2018-10-07] MEDS: VANCOMYCIN HCL 1.25 GM in SOD CHLORIDE 0.9% 250 ML IVPB ×3 (04:06→19:54)
[2018-10-07 04:07] LABS: POSITIVE DIFF @See below
[2018-10-07 04:23] LABS: LACTIC ACID 1.4 mmol/L (0.5-2.0)
[2018-10-07 04:25] LABS: ANION GAP 6 (5-13); BLOOD UREA NITROGEN 19 mg/dl (7-20); CALCIUM 9.4 mg/dl (8.4-10.2); CARBON DIOXIDE 31 mmol/L (21-31); CHLORIDE 109 mmol/L (97-110); CREATININE 0.48 mg/dl (0.44-1.00); Estimated GFR > 60 mL/min (>60); GLUCOSE 158 mg/dl (70-220); POTASSIUM 3.7 mmol/L (3.5-5.1); SODIUM 146 mmol/L (135-144)
[2018-10-07 04:27] LABS: INR 1.24; PROTIME 15.7 Sec (11.9-14.9); PT RATIO 1.2
[2018-10-07] MEDS: ASPIRIN 81 MG TAB NGT (08:46)
[2018-10-07] MEDS: LISINOPRIL 5 MG TAB GTB (08:46)
[2018-10-07] MEDS: CEFTRIAXONE 2 GM/50 ML (PMX) 50 ML IVPB ×2 (08:46→22:58)
[2018-10-07] MEDS: DEXTROSE 5% 1,000 ML IV (10:27)
[2018-10-08] MEDS: ACETAMINOPHEN 650MG/20.3ML CUP NGT ×2 (02:25→17:33)
[2018-10-08] MEDS: VANCOMYCIN HCL 1.25 GM in SOD CHLORIDE 0.9% 250 ML IVPB ×3 (03:38→19:46)
[2018-10-08 05:29] LABS: ANION GAP 11 (5-13); BLOOD UREA NITROGEN 18 mg/dl (7-20); CALCIUM 9.3 mg/dl (8.4-10.2); CARBON DIOXIDE 30 mmol/L (21-31); CHLORIDE 106 mmol/L (97-110); CREATININE 0.43 mg/dl (0.44-1.00); Estimated GFR > 60 mL/min (>60); GLUCOSE 176 mg/dl (70-220); MAGNESIUM 2.3 mg/dl (1.7-2.5); PHOSPHORUS 3.4 mg/dl (2.5-4.9); POTASSIUM 3.2 mmol/L (3.5-5.1); SODIUM 147 mmol/L (135-144)
[2018-10-08] MEDS: DEXTROSE 5% 1,000 ML IV ×2 (05:30→08:52)
[2018-10-08] MEDS: POTASSIUM CHLORIDE 20 MEQ POWDER FOR ORAL SOLN NGT (06:38)
[2018-10-08] MEDS: CEFTRIAXONE 2 GM/50 ML (PMX) 50 ML IVPB ×2 (08:53→23:04)
[2018-10-08] MEDS: LISINOPRIL 5 MG TAB GTB (08:53)
[2018-10-08] MEDS: ASPIRIN 81 MG TAB NGT (08:53)
[2018-10-08] MEDS: IOHEXOL 300MG/ML 150 ML BTL (12:43)
[2018-10-08] MEDS: SOD CHLORIDE 0.9% 100 ML (12:43)
[2018-10-09] MEDS: ACETAMINOPHEN 650MG/20.3ML CUP NGT ×2 (02:39→15:18)
[2018-10-09] MEDS: VANCOMYCIN HCL 1.25 GM in SOD CHLORIDE 0.9% 250 ML IVPB ×3 (02:57→19:07)
[2018-10-09] MEDS: DEXTROSE 5% 1,000 ML IV (04:00)
[2018-10-09 05:27] LABS: ADD MAN DIFF? NO
[2018-10-09 06:03] LABS: ANION GAP 8 (5-13); BLOOD UREA NITROGEN 14 mg/dl (7-20); CALCIUM 8.5 mg/dl (8.4-10.2); CARBON DIOXIDE 27 mmol/L (21-31); CHLORIDE 104 mmol/L (97-110); CREATININE 0.34 mg/dl (0.44-1.00); Estimated GFR > 60 mL/min (>60); GLUCOSE 127 mg/dl (70-220); MAGNESIUM 2.1 mg/dl (1.7-2.5); PHOSPHORUS 3.6 mg/dl (2.5-4.9); POTASSIUM 4.5 mmol/L (3.5-5.1); SODIUM 139 mmol/L (135-144)
[2018-10-09 06:44] LABS: WHITE BLOOD COUNT 8.2 10^3/ul (4.8-10.8)
[2018-10-09 06:44] LABS: BASOPHILS % 0.2 % (0.0-2.0); EOSINOPHILS # 0.1 10^3/ul (0.0-0.5); EOSINOPHILS % 1.2 % (0.0-7.0); HEMATOCRIT 33.9 % (37.0-47.0); HEMOGLOBIN 11.2 g/dl (12.0-16.0); LYMPHOCYTES # 0.7 10^3/ul (0.8-2.9); LYMPHOCYTES % 7.9 % (15.0-51.0); MEAN CORPUSCULAR VOLUME 87.8 fl (82.0-101.0); MEAN PLATELET VOLUME 8.8 fl (7.4-10.4); MONOCYTE # 0.4 10^3/ul (0.3-0.9); MONOCYTES % 5.2 % (0.0-11.0); NEUTROPHILS % 84.9 % (39.0-77.0); PLATELET COUNT 310 10^3/UL (140-415); RED BLOOD COUNT 3.86 10^6/ul (4.20-5.40); RED CELL DISTRIBUTION WIDTH 12.2 % (11.5-14.5)
[2018-10-09] MEDS: LISINOPRIL 5 MG TAB GTB (09:49)
[2018-10-09] MEDS: CEFTRIAXONE 2 GM/50 ML (PMX) 50 ML IVPB (09:50)
[2018-10-09] MEDS: ASPIRIN 81 MG TAB NGT (09:57)
[2018-10-09 11:30] LABS: PROCALCITONIN 0.05 ng/mL (0.00-0.10)
[2018-10-09 11:31] LABS: LACTATE DEHYDROGENASE 504 IU/L (313-618)
[2018-10-09 11:34] LABS: VANCOMYCIN,TROUGH 12.3 ug/ml (10.0-20.0)
[2018-10-09 20:25] LABS: ADD MAN DIFF? NO
[2018-10-09 21:01] LABS: ALANINE AMINOTRANSFERASE 84 IU/L (13-69); ALBUMIN 3.3 g/dl (3.3-4.9); ALBUMIN/GLOBULIN RATIO 1.03; ALKALINE PHOSPHATASE 58 IU/L (42-121); ANION GAP 10 (5-13); ASPARTATE AMINO TRANSFERASE 34 IU/L (15-46); BILIRUBIN,INDIRECT 0.4 mg/dl (0-1.1); BILIRUBIN,TOTAL 0.4 mg/dl (0.2-1.3); BLOOD UREA NITROGEN 13 mg/dl (7-20); CALCIUM 8.7 mg/dl (8.4-10.2); CARBON DIOXIDE 27 mmol/L (21-31); CHLORIDE 100 mmol/L (97-110); CREATININE 0.39 mg/dl (0.44-1.00); Estimated GFR > 60 mL/min (>60); GLUCOSE 118 mg/dl (70-220); POTASSIUM 3.6 mmol/L (3.5-5.1); SODIUM 137 mmol/L (135-144); TOTAL PROTEIN 6.5 g/dl (6.1-8.1)
[2018-10-09 21:22] LABS: INR 1.17; PARTIAL THROMBOPLASTIN TIME 27.7 Sec (23.0-35.0); PT RATIO 1.2
[2018-10-09 21:35] LABS: WHITE BLOOD COUNT 8.4 10^3/ul (4.8-10.8)
[2018-10-09 21:35] LABS: BASOPHILS % 0.4 % (0.0-2.0); EOSINOPHILS # 0.1 10^3/ul (0.0-0.5); HEMATOCRIT 34.8 % (37.0-47.0); HEMOGLOBIN 11.5 g/dl (12.0-16.0); LYMPHOCYTES # 1.1 10^3/ul (0.8-2.9); LYMPHOCYTES % 12.5 % (15.0-51.0); MEAN CORPUSCULAR HEMOGLOBIN 29.1 pg (29.0-33.0); MEAN CORPUSCULAR VOLUME 88.1 fl (82.0-101.0); MEAN PLATELET VOLUME 9.1 fl (7.4-10.4); MONOCYTE # 0.6 10^3/ul (0.3-0.9); MONOCYTES % 6.8 % (0.0-11.0); NEUTROPHIL # 6.6 10^3/ul (1.6-7.5); NEUTROPHILS % 78.3 % (39.0-77.0); PLATELET COUNT 336 10^3/UL (140-415); RED BLOOD COUNT 3.95 10^6/ul (4.20-5.40); RED CELL DISTRIBUTION WIDTH 12.1 % (11.5-14.5)
[2018-10-09] MEDS ORDERED: MIDAZOLAM 1 MG/ML 2 ML INJ (21:47)
[2018-10-09 23:18] LABS: CSF MN% 47.5 %; CSF PMN% 52.5 %; CSF RBC 0 /uL (0-0)
[2018-10-09 23:24] LABS: GLUCOSE,CSF 61 mg/dl (50-80)
[2018-10-09 23:24] LABS: TOTAL PROTEIN,CSF 83 mg/dl (12-60)
[2018-10-09 23:46] LABS: CSF CLARITY CLEAR; CSF#TUBE COUNT TUBE#1; CSF#TUBES REC'D 1
[2018-10-09 23:47] LABS: CSF WBC 40 /cmm (0-10); PATH REVIEW? YES
[2018-10-10] MEDS: MIDAZOLAM 1 MG/ML 2 ML INJ IV (01:10)
[2018-10-10] MEDS: CEFTRIAXONE 2 GM/50 ML (PMX) 50 ML IVPB ×3 (01:12→20:37)
[2018-10-10] MEDS: ACETAMINOPHEN 650MG/20.3ML CUP NGT (03:08)
[2018-10-10] MEDS: VANCOMYCIN HCL 1.25 GM in SOD CHLORIDE 0.9% 250 ML IVPB ×3 (03:08→18:14)
[2018-10-10 05:12] LABS: ADD MAN DIFF? NO
[2018-10-10 05:19] LABS: ABNORMAL IP MESSAGE 1; BASOPHILS % 0.2 % (0.0-2.0); HEMATOCRIT 32.9 % (37.0-47.0); HEMOGLOBIN 10.9 g/dl (12.0-16.0); LYMPHOCYTES # 0.5 10^3/ul (0.8-2.9); LYMPHOCYTES % 4.5 % (15.0-51.0); MEAN CORPUSCULAR HGB CONC 33.1 g/dl (32.0-37.0); MEAN CORPUSCULAR VOLUME 87.5 fl (82.0-101.0); MEAN PLATELET VOLUME 8.9 fl (7.4-10.4); MONOCYTE # 0.3 10^3/ul (0.3-0.9); MONOCYTES % 2.8 % (0.0-11.0); NEUTROPHIL # 9.3 10^3/ul (1.6-7.5); NEUTROPHILS % 91.8 % (39.0-77.0); PLATELET COUNT 347 10^3/UL (140-415); RED BLOOD COUNT 3.76 10^6/ul (4.20-5.40); RED CELL DISTRIBUTION WIDTH 12.1 % (11.5-14.5)
[2018-10-10 05:19] LABS: WHITE BLOOD COUNT 10.1 10^3/ul (4.8-10.8)
[2018-10-10 05:33] LABS: POSITIVE DIFF @See below
[2018-10-10 05:37] LABS: INR 1.23; PROTIME 15.6 Sec (11.9-14.9); PT RATIO 1.2
[2018-10-10 05:38] LABS: PARTIAL THROMBOPLASTIN TIME 22.4 Sec (23.0-35.0)
[2018-10-10 06:06] LABS: ALANINE AMINOTRANSFERASE 76 IU/L (13-69); ALBUMIN 3.2 g/dl (3.3-4.9); ALKALINE PHOSPHATASE 57 IU/L (42-121); ANION GAP 9 (5-13); ASPARTATE AMINO TRANSFERASE 30 IU/L (15-46); BILIRUBIN,INDIRECT 0.3 mg/dl (0-1.1); BILIRUBIN,TOTAL 0.3 mg/dl (0.2-1.3); BLOOD UREA NITROGEN 13 mg/dl (7-20); CALCIUM 8.4 mg/dl (8.4-10.2); CARBON DIOXIDE 28 mmol/L (21-31); CHLORIDE 100 mmol/L (97-110); CREATININE 0.42 mg/dl (0.44-1.00); Estimated GFR > 60 mL/min (>60); GLUCOSE 144 mg/dl (70-220); POTASSIUM 3.5 mmol/L (3.5-5.1); SODIUM 137 mmol/L (135-144); TOTAL PROTEIN 6.4 g/dl (6.1-8.1)
[2018-10-10] MEDS: LISINOPRIL 5 MG TAB GTB (09:35)
[2018-10-10 13:13] LABS: TYPE AND SCREEN 1 1
[2018-10-11] MEDS: VANCOMYCIN HCL 1.25 GM in SOD CHLORIDE 0.9% 250 ML IVPB ×3 (05:00→21:59)
[2018-10-11 05:07] LABS: ADD MAN DIFF? NO
[2018-10-11 05:19] LABS: BASOPHILS % 0.3 % (0.0-2.0); EOSINOPHILS # 0.1 10^3/ul (0.0-0.5); EOSINOPHILS % 1.3 % (0.0-7.0); HEMATOCRIT 30.7 % (37.0-47.0); HEMOGLOBIN 10.3 g/dl (12.0-16.0); LYMPHOCYTES # 0.6 10^3/ul (0.8-2.9); LYMPHOCYTES % 9.6 % (15.0-51.0); MEAN CORPUSCULAR HEMOGLOBIN 29.5 pg (29.0-33.0); MEAN CORPUSCULAR HGB CONC 33.6 g/dl (32.0-37.0); MEAN PLATELET VOLUME 8.9 fl (7.4-10.4); MONOCYTE # 0.5 10^3/ul (0.3-0.9); MONOCYTES % 7.4 % (0.0-11.0); NEUTROPHIL # 5.2 10^3/ul (1.6-7.5); NEUTROPHILS % 80.9 % (39.0-77.0); PLATELET COUNT 336 10^3/UL (140-415); RED BLOOD COUNT 3.49 10^6/ul (4.20-5.40); RED CELL DISTRIBUTION WIDTH 12.1 % (11.5-14.5)
[2018-10-11 05:19] LABS: WHITE BLOOD COUNT 6.4 10^3/ul (4.8-10.8)
[2018-10-11 05:36] LABS: INR 1.21; PROTIME 15.4 Sec (11.9-14.9); PT RATIO 1.2
[2018-10-11 06:00] LABS: ANION GAP 7 (5-13); BLOOD UREA NITROGEN 15 mg/dl (7-20); CALCIUM 8.7 mg/dl (8.4-10.2); CARBON DIOXIDE 32 mmol/L (21-31); CHLORIDE 101 mmol/L (97-110); CREATININE 0.44 mg/dl (0.44-1.00); Estimated GFR > 60 mL/min (>60); GLUCOSE 107 mg/dl (70-220); SODIUM 140 mmol/L (135-144)
[2018-10-11 06:02] LABS: POTASSIUM 2.7 mmol/L (3.5-5.1)
[2018-10-11] MEDS: POTASSIUM CHLORIDE (SR) 20 MEQ TAB PO (06:46)
[2018-10-11] MEDS: POTASSIUM CHLORIDE 50 ML IVPB (07:16)
[2018-10-11] MEDS: POTASSIUM CHLORIDE 20 MEQ POWDER FOR ORAL SOLN GTB (07:16)
[2018-10-11] MEDS: LISINOPRIL 5 MG TAB GTB (09:00)
[2018-10-11] MEDS: CEFTRIAXONE 2 GM/50 ML (PMX) 50 ML IVPB ×2 (09:40→21:08)
[2018-10-11] MEDS ORDERED: MANNITOL 25% 50 ML INJ IV* (17:30)
[2018-10-11] MEDS: PHYTONADIONE (1 MG/ML PO SYG) NGT (18:08)
[2018-10-11] MEDS: MANNITOL 25% 50 ML INJ IV* ×2 (18:09→22:45)
[2018-10-12] MEDS: VANCOMYCIN HCL 1.25 GM in SOD CHLORIDE 0.9% 250 ML IVPB ×3 (04:57→21:21)
[2018-10-12 06:09] LABS: ANION GAP 8 (5-13); BLOOD UREA NITROGEN 14 mg/dl (7-20); CALCIUM 9.1 mg/dl (8.4-10.2); CARBON DIOXIDE 31 mmol/L (21-31); CHLORIDE 106 mmol/L (97-110); CREATININE 0.43 mg/dl (0.44-1.00); Estimated GFR > 60 mL/min (>60); GLUCOSE 136 mg/dl (70-220); SODIUM 145 mmol/L (135-144)
[2018-10-12 06:15] LABS: PLATELET COUNT 380 10^3/UL (140-415)
[2018-10-12 06:16] LABS: INR 1.12; PROTIME 14.5 Sec (11.9-14.9); PT RATIO 1.1
[2018-10-12 06:17] LABS: PARTIAL THROMBOPLASTIN TIME 26.4 Sec (23.0-35.0)
[2018-10-12 06:21] LABS: THROMBIN TIME 14.4 SEC (13.8-19.1)
[2018-10-12] MEDS: POTASSIUM CHLORIDE 20 MEQ POWDER FOR ORAL SOLN NGT (08:58)
[2018-10-12] MEDS: CEFTRIAXONE 2 GM/50 ML (PMX) 50 ML IVPB ×2 (08:58→20:36)
[2018-10-12] MEDS: LISINOPRIL 5 MG TAB GTB (08:58)
[2018-10-12] MEDS: POTASSIUM CHLORIDE 100 ML IVPB ×2 (08:59→11:36)
[2018-10-12] MEDS: ACETAMINOPHEN 650MG/20.3ML CUP NGT (14:42)
[2018-10-12] MEDS: MANNITOL 25% 50 ML INJ IV* ×3 (15:07→23:23)
[2018-10-12 17:06] LABS: CSF COLOR COLORLESS
[2018-10-12] MEDS ORDERED: POTASSIUM CHLORIDE 20 MEQ POWDER FOR ORAL SOLN PO ×2 (20:00)
[2018-10-12] MEDS: LIDOCAINE 1% (MPF) 5 ML VIAL SC (23:49)
[2018-10-13] MEDS: ACETAMINOPHEN 650MG/20.3ML CUP NGT ×3 (00:59→22:28)
[2018-10-13 01:16] LABS: ANION GAP 7 (5-13); BLOOD UREA NITROGEN 13 mg/dl (7-20); CALCIUM 8.8 mg/dl (8.4-10.2); CARBON DIOXIDE 29 mmol/L (21-31); CHLORIDE 112 mmol/L (97-110); Estimated GFR > 60 mL/min (>60); GLUCOSE 152 mg/dl (70-220); POTASSIUM 3.5 mmol/L (3.5-5.1); SODIUM 148 mmol/L (135-144)
[2018-10-13] MEDS: POTASSIUM CHLORIDE 50 ML IVPB ×2 (01:35→03:41)
[2018-10-13] MEDS: MANNITOL 25% 50 ML INJ IV* ×5 (02:39→23:02)
[2018-10-13] MEDS: VANCOMYCIN HCL 1.25 GM in SOD CHLORIDE 0.9% 250 ML IVPB ×2 (06:01→13:00)
[2018-10-13 06:27] LABS: ADD MAN DIFF? NO
[2018-10-13 06:41] LABS: ABNORMAL IP MESSAGE 1; BASOPHILS % 0.4 % (0.0-2.0); EOSINOPHILS # 0.1 10^3/ul (0.0-0.5); EOSINOPHILS % 1.8 % (0.0-7.0); HEMATOCRIT 32.9 % (37.0-47.0); HEMOGLOBIN 10.6 g/dl (12.0-16.0); LYMPHOCYTES # 0.5 10^3/ul (0.8-2.9); LYMPHOCYTES % 6.9 % (15.0-51.0); MEAN CORPUSCULAR HEMOGLOBIN 29.4 pg (29.0-33.0); MEAN CORPUSCULAR HGB CONC 32.2 g/dl (32.0-37.0); MEAN CORPUSCULAR VOLUME 91.4 fl (82.0-101.0); MEAN PLATELET VOLUME 8.9 fl (7.4-10.4); MONOCYTE # 0.5 10^3/ul (0.3-0.9); MONOCYTES % 7.4 % (0.0-11.0); NEUTROPHIL # 5.7 10^3/ul (1.6-7.5); NEUTROPHILS % 82.6 % (39.0-77.0); PLATELET COUNT 396 10^3/UL (140-415); RED CELL DISTRIBUTION WIDTH 12.8 % (11.5-14.5)
[2018-10-13 06:41] LABS: WHITE BLOOD COUNT 6.9 10^3/ul (4.8-10.8)
[2018-10-13 06:56] LABS: ANION GAP -5 (5-13); BLOOD UREA NITROGEN 14 mg/dl (7-20); CALCIUM 8.8 mg/dl (8.4-10.2); CARBON DIOXIDE 29 mmol/L (21-31); CHLORIDE 120 mmol/L (97-110); CREATININE 0.35 mg/dl (0.44-1.00); Estimated GFR > 60 mL/min (>60); GLUCOSE 149 mg/dl (70-220); MAGNESIUM 2.3 mg/dl (1.7-2.5); SODIUM 144 mmol/L (135-144)
[2018-10-13 07:07] LABS: POSITIVE DIFF @See below
[2018-10-13 07:25] LABS: POTASSIUM > 14.0 mmol/L (3.5-5.1)
[2018-10-13 08:43] LABS: ANION GAP 8 (5-13); BLOOD UREA NITROGEN 14 mg/dl (7-20); CALCIUM 9.1 mg/dl (8.4-10.2); CARBON DIOXIDE 31 mmol/L (21-31); CHLORIDE 112 mmol/L (97-110); CREATININE 0.36 mg/dl (0.44-1.00); Estimated GFR > 60 mL/min (>60); GLUCOSE 136 mg/dl (70-220); POTASSIUM 5.5 mmol/L (3.5-5.1); SODIUM 151 mmol/L (135-144)
[2018-10-13] MEDS: CEFTRIAXONE 2 GM/50 ML (PMX) 50 ML IVPB ×2 (09:02→22:03)
[2018-10-13] MEDS: LISINOPRIL 5 MG TAB GTB (09:03)
[2018-10-13] MEDS ORDERED: VANCOMYCIN HCL 1.25 GM in DEXTROSE 5% 250 ML IVPB ×2 (10:45→13:00)
[2018-10-13] MEDS ORDERED: NA PHOSPHATE/BIPHOS 133 ML ENEMA PR (13:30)
[2018-10-13] MEDS: DOCUSATE SODIUM 10 MG/ML (10ML CUP) NGT ×2 (14:42→22:03)
[2018-10-13 20:54] LABS: VANCOMYCIN,TROUGH 19.5 ug/ml (10.0-20.0)
[2018-10-14] MEDS: VANCOMYCIN 1 GM 250 ML IVPB ×2 (00:15→06:56)
[2018-10-14] MEDS: MANNITOL 25% 50 ML INJ IV* ×3 (05:31→21:46)
[2018-10-14 05:59] LABS: ADD MAN DIFF? NO
[2018-10-14 06:07] LABS: WHITE BLOOD COUNT 7.2 10^3/ul (4.8-10.8)
[2018-10-14 06:07] LABS: BASOPHILS % 0.4 % (0.0-2.0); EOSINOPHILS # 0.1 10^3/ul (0.0-0.5); EOSINOPHILS % 1.1 % (0.0-7.0); HEMATOCRIT 34.9 % (37.0-47.0); HEMOGLOBIN 10.5 g/dl (12.0-16.0); LYMPHOCYTES # 0.6 10^3/ul (0.8-2.9); LYMPHOCYTES % 8.4 % (15.0-51.0); MEAN CORPUSCULAR HEMOGLOBIN 28.8 pg (29.0-33.0); MEAN CORPUSCULAR HGB CONC 30.1 g/dl (32.0-37.0); MEAN CORPUSCULAR VOLUME 95.9 fl (82.0-101.0); MONOCYTE # 0.7 10^3/ul (0.3-0.9); MONOCYTES % 9.4 % (0.0-11.0); NEUTROPHIL # 5.7 10^3/ul (1.6-7.5); NEUTROPHILS % 79.6 % (39.0-77.0); PLATELET COUNT 407 10^3/UL (140-415); RED BLOOD COUNT 3.64 10^6/ul (4.20-5.40); RED CELL DISTRIBUTION WIDTH 13.3 % (11.5-14.5)
[2018-10-14 06:34] LABS: ANION GAP 7 (5-13); BLOOD UREA NITROGEN 15 mg/dl (7-20); CALCIUM 9.1 mg/dl (8.4-10.2); CARBON DIOXIDE 32 mmol/L (21-31); CHLORIDE 115 mmol/L (97-110); CREATININE 0.46 mg/dl (0.44-1.00); Estimated GFR > 60 mL/min (>60); GLUCOSE 151 mg/dl (70-220); POTASSIUM 3.3 mmol/L (3.5-5.1); SODIUM 154 mmol/L (135-144)
[2018-10-14] MEDS: ACETAMINOPHEN 650MG/20.3ML CUP NGT ×2 (06:52→18:46)
[2018-10-14] MEDS: POTASSIUM CHLORIDE 20 MEQ POWDER FOR ORAL SOLN PO (07:57)
[2018-10-14] MEDS: LISINOPRIL 5 MG TAB GTB (09:56)
[2018-10-14] MEDS: DOCUSATE SODIUM 10 MG/ML (10ML CUP) NGT ×2 (09:56→22:05)
[2018-10-14] MEDS ORDERED: DEXTROSE 5% 1,000 ML IV (16:30)
[2018-10-15 05:14] LABS: ADD MAN DIFF? NO
[2018-10-15 05:21] LABS: WHITE BLOOD COUNT 8.8 10^3/ul (4.8-10.8)
[2018-10-15 05:21] LABS: BASOPHILS % 0.3 % (0.0-2.0); EOSINOPHILS # 0.1 10^3/ul (0.0-0.5); EOSINOPHILS % 1.3 % (0.0-7.0); HEMATOCRIT 37.7 % (37.0-47.0); HEMOGLOBIN 11.2 g/dl (12.0-16.0); LYMPHOCYTES # 0.7 10^3/ul (0.8-2.9); LYMPHOCYTES % 7.7 % (15.0-51.0); MEAN CORPUSCULAR HEMOGLOBIN 28.8 pg (29.0-33.0); MEAN CORPUSCULAR HGB CONC 29.7 g/dl (32.0-37.0); MEAN CORPUSCULAR VOLUME 96.9 fl (82.0-101.0); MEAN PLATELET VOLUME 8.9 fl (7.4-10.4); MONOCYTE # 0.7 10^3/ul (0.3-0.9); MONOCYTES % 8.2 % (0.0-11.0); NEUTROPHIL # 7.2 10^3/ul (1.6-7.5); PLATELET COUNT 394 10^3/UL (140-415); RED BLOOD COUNT 3.89 10^6/ul (4.20-5.40); RED CELL DISTRIBUTION WIDTH 13.2 % (11.5-14.5)
[2018-10-15 05:51] LABS: ANION GAP 5 (5-13); BLOOD UREA NITROGEN 16 mg/dl (7-20); CALCIUM 9.5 mg/dl (8.4-10.2); CARBON DIOXIDE 38 mmol/L (21-31); CHLORIDE 114 mmol/L (97-110); CREATININE 0.37 mg/dl (0.44-1.00); Estimated GFR > 60 mL/min (>60); GLUCOSE 136 mg/dl (70-220); SODIUM 157 mmol/L (135-144)
[2018-10-15] MEDS: MANNITOL 25% 50 ML INJ IV* (06:22)
[2018-10-15] MEDS: BACITRACIN 0.9 GM OINT TOP (11:31)
[2018-10-15] MEDS: DOCUSATE SODIUM 10 MG/ML (10ML CUP) NGT ×2 (11:31→21:01)
[2018-10-15] MEDS: LISINOPRIL 5 MG TAB GTB (11:31)
[2018-10-15] MEDS: ACETAMINOPHEN 650MG/20.3ML CUP NGT (16:15)
[2018-10-16] MEDS: ACETAMINOPHEN 650MG/20.3ML CUP NGT ×2 (00:59→23:45)
[2018-10-16 05:53] LABS: INR 1.28; PROTIME 16.1 Sec (11.9-14.9); PT RATIO 1.3
[2018-10-16] MEDS: DOCUSATE SODIUM 10 MG/ML (10ML CUP) NGT ×2 (09:04→20:03)
[2018-10-16] MEDS: LEVETIRACETAM 1000 MG (PMX) 100 ML IVPB (09:04)
[2018-10-16] MEDS: LISINOPRIL 5 MG TAB GTB (09:04)
[2018-10-16] MEDS: LEVETIRACETAM 500 MG (PMX) 100 ML IVPB ×2 (09:04→20:03)
[2018-10-16] MEDS: CEFAZOLIN 1 GM/50 ML (PMX) 50 ML IVPB ×3 (13:48→14:00)
[2018-10-17] MEDS ORDERED: niCARdipine-NS 0.1MG/ML DRIP 200 ML (00:15)
[2018-10-17 05:06] LABS: ADD MAN DIFF? NO
[2018-10-17 05:07] LABS: WHITE BLOOD COUNT 12.8 10^3/ul (4.8-10.8)
[2018-10-17 05:07] LABS: BASOPHILS % 0.2 % (0.0-2.0); EOSINOPHILS # 0.1 10^3/ul (0.0-0.5); EOSINOPHILS % 0.5 % (0.0-7.0); HEMOGLOBIN 9.9 g/dl (12.0-16.0); LYMPHOCYTES # 0.9 10^3/ul (0.8-2.9); LYMPHOCYTES % 7.2 % (15.0-51.0); MEAN CORPUSCULAR HEMOGLOBIN 28.6 pg (29.0-33.0); MEAN CORPUSCULAR VOLUME 95.4 fl (82.0-101.0); MEAN PLATELET VOLUME 9.4 fl (7.4-10.4); MONOCYTE # 0.4 10^3/ul (0.3-0.9); NEUTROPHIL # 11.4 10^3/ul (1.6-7.5); NEUTROPHILS % 88.6 % (39.0-77.0); PLATELET COUNT 300 10^3/UL (140-415); RED BLOOD COUNT 3.46 10^6/ul (4.20-5.40)
[2018-10-17 05:46] LABS: LACTIC ACID 0.9 mmol/L (0.5-2.0)
[2018-10-17 05:48] LABS: PHOSPHORUS 3.1 mg/dl (2.5-4.9)
[2018-10-17 05:48] LABS: MAGNESIUM 2.6 mg/dl (1.7-2.5)
[2018-10-17 05:54] LABS: ANION GAP 4 (5-13); BLOOD UREA NITROGEN 28 mg/dl (7-20); CALCIUM 8.9 mg/dl (8.4-10.2); CARBON DIOXIDE 38 mmol/L (21-31); CHLORIDE 114 mmol/L (97-110); CREATININE 0.54 mg/dl (0.44-1.00); Estimated GFR > 60 mL/min (>60); GLUCOSE 126 mg/dl (70-220); POTASSIUM 3.1 mmol/L (3.5-5.1); SODIUM 156 mmol/L (135-144)
[2018-10-17] MEDS: POTASSIUM CHLORIDE 50 ML IVPB ×3 (06:32→10:57)
[2018-10-17] MEDS: LEVETIRACETAM 500 MG (PMX) 100 ML IVPB ×2 (09:29→20:31)
[2018-10-17] MEDS: DOCUSATE SODIUM 10 MG/ML (10ML CUP) NGT ×2 (09:30→20:31)
[2018-10-17] MEDS: LISINOPRIL 5 MG TAB GTB (09:30)
[2018-10-17] MEDS: BACITRACIN 0.9 GM OINT TOP (09:53)
[2018-10-17] MEDS: ACETAMINOPHEN 650MG/20.3ML CUP NGT (20:31)
[2018-10-18] MEDS: MANNITOL 25% 50 ML INJ IV* (00:26)
[2018-10-18 05:23] LABS: AADO2 Arterial 50.9 mmHg (7.0-24.0); Arterial Base Excess 7.7 mmol/L (-3.0-3); Arterial Blood Gas Oxygen Sat 97.2 mmHG (95.0-98.0); Arterial COHb 0.3 % (0.0-3.0); Arterial Fraction of Oxyhgb 96.7 % (93.0-99.0); Arterial HCO3 33.5 mmol/L (22.0-26.0); Arterial MetHb 0.2 % (0.0-1.5); Arterial pCO2 52.8 mmhg (35-45); MODE NASAL CANNULA; Site Right Brachial
[2018-10-18 05:25] LABS: HEMATOCRIT 33.1 % (37.0-47.0); HEMOGLOBIN 9.8 g/dl (12.0-16.0); MEAN CORPUSCULAR HEMOGLOBIN 28.7 pg (29.0-33.0); MEAN CORPUSCULAR HGB CONC 29.6 g/dl (32.0-37.0); MEAN CORPUSCULAR VOLUME 96.8 fl (82.0-101.0); MEAN PLATELET VOLUME 9.6 fl (7.4-10.4); NUCLEATED RED BLOOD CELLS% 0.2 /100WBC (0.0-0.0); PLATELET COUNT 292 10^3/UL (140-415); RED BLOOD COUNT 3.42 10^6/ul (4.20-5.40); RED CELL DISTRIBUTION WIDTH 13.2 % (11.5-14.5)
[2018-10-18 05:25] LABS: WHITE BLOOD COUNT 10.8 10^3/ul (4.8-10.8)
[2018-10-18 05:26] LABS: POSITIVE DIFF @See below
[2018-10-18 05:27] LABS: ADD MAN DIFF? YES
[2018-10-18 05:55] LABS: ANION GAP 4 (5-13); BLOOD UREA NITROGEN 20 mg/dl (7-20); CALCIUM 9.1 mg/dl (8.4-10.2); CARBON DIOXIDE 36 mmol/L (21-31); CHLORIDE 113 mmol/L (97-110); CREATININE 0.43 mg/dl (0.44-1.00); Estimated GFR > 60 mL/min (>60); GLUCOSE 161 mg/dl (70-220); MAGNESIUM 2.5 mg/dl (1.7-2.5); PHOSPHORUS 2.5 mg/dl (2.5-4.9); POTASSIUM 3.5 mmol/L (3.5-5.1); SODIUM 153 mmol/L (135-144)
[2018-10-18] MEDS: MANNITOL 20% 125 ML IV ×2 (06:10→15:02)
[2018-10-18] MEDS ORDERED: ETOMIDATE 20 MG INJ (07:00)
[2018-10-18] MEDS ORDERED: SUCCINYLCHOLINE CHLORIDE 100 MG/5 ML SYG IV (07:00)
[2018-10-18] MEDS: POTASSIUM CHLORIDE 50 ML IVPB ×5 (08:00→18:53)
[2018-10-18] MEDS ORDERED: PROPOFOL 100 ML (09:25)
[2018-10-18] MEDS: FAMOTIDINE 20 MG INJ IV (09:37)
[2018-10-18] MEDS: LISINOPRIL 5 MG TAB GTB (09:37)
[2018-10-18 09:42] LABS: ANISOCYTOSIS 1+ (0-0); BAND NEUTROPHILS #M 1.4 10^3/ul (0.0-0.6); BAND NEUTROPHILS % (M) 13 % (0-4); BURR CELLS 1+ (0-0); LYMPHOCYTES % (M) 10 % (15-51); MICROCYTOSIS 1+ (0-0); MONOCYTE #M 0.2 10^3/ul (0.3-0.9); MONOCYTES % (M) 2 % (0-11); PLATELET ESTIMATE NORMAL; POIKILOCYTOSIS 1+ (0-0); POLYCHROMASIA 3+ (0-0); SEG NEUT #M 8.3 10^3/ul (1.6-7.5); SEGMENTED NEUTROPHILS (M) % 75 % (39-77); SMUDGE%M 2 % (0-0)
[2018-10-18] MEDS: DOCUSATE SODIUM 10 MG/ML (10ML CUP) NGT ×2 (09:56→22:48)
[2018-10-18] MEDS: LEVETIRACETAM 500 MG (PMX) 100 ML IVPB ×2 (09:56→22:48)
[2018-10-18] MEDS: PROPOFOL 100 ML IV (09:59)
[2018-10-18 11:36] LABS: AADO2 Arterial 233.4 mmHg (7.0-24.0); Allen Test ACCEPTAB; Arterial Base Excess 11.3 mmol/L (-3.0-3); Arterial Blood Gas Oxygen Sat 97.3 mmHG (95.0-98.0); Arterial COHb 0.3 % (0.0-3.0); Arterial Fraction of Oxyhgb 96.7 % (93.0-99.0); Arterial HCO3 32.5 mmol/L (22.0-26.0); Arterial MetHb 0.3 % (0.0-1.5); Arterial pCO2 30.9 mmhg (35-45); MODE VENT - AC; Site Right Radial
[2018-10-18] MEDS ORDERED: METOCLOPRAMIDE 10 MG INJ IV (12:00)
[2018-10-18] MEDS: LACTATED RINGER'S 500 ML IV ×2 (12:05→13:05)
[2018-10-18] MEDS: METOCLOPRAMIDE 10 MG INJ IV ×2 (12:42→22:48)
[2018-10-18 14:35] LABS: INR 1.37; PARTIAL THROMBOPLASTIN TIME 28.6 Sec (23.0-35.0); PT RATIO 1.3
[2018-10-18 16:00] LABS: ANION GAP 5 (5-13); BLOOD UREA NITROGEN 15 mg/dl (7-20); CALCIUM 8.8 mg/dl (8.4-10.2); CARBON DIOXIDE 34 mmol/L (21-31); CHLORIDE 115 mmol/L (97-110); CREATININE 0.53 mg/dl (0.44-1.00); Estimated GFR > 60 mL/min (>60); GLUCOSE 121 mg/dl (70-220); SODIUM 154 mmol/L (135-144)
[2018-10-18 16:10] LABS: POTASSIUM 2.4 mmol/L (3.5-5.1)
[2018-10-18] MEDS ORDERED: POTASSIUM CHLORIDE 0 ML IVPB (16:11)
[2018-10-18] MEDS: POTASSIUM CHLORIDE 20 MEQ POWDER FOR ORAL SOLN PO (16:21)
[2018-10-18] MEDS: POTASSIUM CHLORIDE 20 MEQ POWDER FOR ORAL SOLN GTB (18:08)
[2018-10-18 18:12] LABS: TYPE AND SCREEN 1 1
[2018-10-18] MEDS: SOD CHLORIDE 0.9% 100 ML (21:14)
[2018-10-18] MEDS: IOHEXOL 100 ML (21:14)
[2018-10-18 22:39] LABS: ANION GAP 3 (5-13); BLOOD UREA NITROGEN 16 mg/dl (7-20); CALCIUM 9.3 mg/dl (8.4-10.2); CARBON DIOXIDE 35 mmol/L (21-31); CHLORIDE 119 mmol/L (97-110); CREATININE 0.46 mg/dl (0.44-1.00); Estimated GFR > 60 mL/min (>60); GLUCOSE 107 mg/dl (70-220); POTASSIUM 4.2 mmol/L (3.5-5.1); SODIUM 157 mmol/L (135-144)
[2018-10-19 00:07] LABS: AADO2 Arterial 109.4 mmHg (7.0-24.0); Allen Test ACCEPTAB; Arterial Base Excess 6.8 mmol/L (-3.0-3); Arterial Blood Gas Oxygen Sat 98.7 mmHG (95.0-98.0); Arterial COHb 0.3 % (0.0-3.0); Arterial Fraction of Oxyhgb 97.9 % (93.0-99.0); Arterial HCO3 31.2 mmol/L (22.0-26.0); Arterial MetHb 0.5 % (0.0-1.5); Arterial pCO2 44.4 mmhg (35-45); MODE VENT - AC; Site Left Radial
[2018-10-19] MEDS: PROPOFOL 100 ML IV ×3 (00:18→19:35)
[2018-10-19] MEDS: MANNITOL 20% 125 ML IV ×4 (02:31→18:40)
[2018-10-19] MEDS: NORepinephrine 8MG/250 ML (PMX 250 ML IV (04:21)
[2018-10-19 05:21] LABS: ADD MAN DIFF? NO
[2018-10-19 05:24] LABS: BASOPHILS % 0.3 % (0.0-2.0); EOSINOPHILS # 0.1 10^3/ul (0.0-0.5); EOSINOPHILS % 1.9 % (0.0-7.0); HEMOGLOBIN 7.7 g/dl (12.0-16.0); LYMPHOCYTES # 0.8 10^3/ul (0.8-2.9); LYMPHOCYTES % 11.3 % (15.0-51.0); MEAN CORPUSCULAR HEMOGLOBIN 28.9 pg (29.0-33.0); MEAN CORPUSCULAR HGB CONC 29.6 g/dl (32.0-37.0); MEAN CORPUSCULAR VOLUME 97.7 fl (82.0-101.0); MEAN PLATELET VOLUME 9.8 fl (7.4-10.4); MONOCYTE # 0.3 10^3/ul (0.3-0.9); MONOCYTES % 4.1 % (0.0-11.0); PLATELET COUNT 228 10^3/UL (140-415); RED BLOOD COUNT 2.66 10^6/ul (4.20-5.40); RED CELL DISTRIBUTION WIDTH 13.4 % (11.5-14.5)
[2018-10-19 05:24] LABS: WHITE BLOOD COUNT 7.3 10^3/ul (4.8-10.8)
[2018-10-19] MEDS: METOCLOPRAMIDE 10 MG INJ IV ×3 (05:24→21:14)
[2018-10-19 05:34] LABS: POSITIVE DIFF @See below
[2018-10-19 05:44] LABS: INR 1.41; PARTIAL THROMBOPLASTIN TIME 30.8 Sec (23.0-35.0); PROTIME 17.4 Sec (11.9-14.9); PT RATIO 1.4
[2018-10-19 05:53] LABS: ANION GAP 2 (5-13); BLOOD UREA NITROGEN 14 mg/dl (7-20); CALCIUM 9.5 mg/dl (8.4-10.2); CARBON DIOXIDE 35 mmol/L (21-31); CHLORIDE 122 mmol/L (97-110); CREATININE 0.47 mg/dl (0.44-1.00); Estimated GFR > 60 mL/min (>60); GLUCOSE 96 mg/dl (70-220); MAGNESIUM 2.7 mg/dl (1.7-2.5); PHOSPHORUS 2.9 mg/dl (2.5-4.9); POTASSIUM 3.1 mmol/L (3.5-5.1); SODIUM 159 mmol/L (135-144)
[2018-10-19] MEDS: POTASSIUM CHLORIDE 50 ML IVPB ×3 (06:29→09:47)
[2018-10-19 07:41] LABS: ANISOCYTOSIS 1+ (0-0); BAND NEUTROPHILS #M 0.5 10^3/ul (0.0-0.6); BAND NEUTROPHILS % (M) 8 % (0-4); BASOPHILS % (M) 1 % (0-2); EOSINOPHILS % (M) 1 % (0-7); LYMPHOCYTES #M 0.3 10^3/ul (0.8-2.9); LYMPHOCYTES % (M) 5 % (15-51); METAMYELOCYTES %M 1 % (0-0); MICROCYTOSIS 1+ (0-0); MONOCYTE #M 0.2 10^3/ul (0.3-0.9); MONOCYTES % (M) 3 % (0-11); MYELOCYTES % (M) 1 % (0-0); PLATELET ESTIMATE NORMAL; POLYCHROMASIA 1+ (0-0); SEG NEUT #M 5.9 10^3/ul (1.6-7.5); SEGMENTED NEUTROPHILS (M) % 80 % (39-77); SMUDGE%M 1 % (0-0)
[2018-10-19] MEDS: DOCUSATE SODIUM 10 MG/ML (10ML CUP) NGT ×2 (08:53→21:14)
[2018-10-19] MEDS: DEXTROSE 5% 1,000 ML IV ×3 (08:53→21:16)
[2018-10-19] MEDS: LISINOPRIL 5 MG TAB GTB (09:00)
[2018-10-19] MEDS: LEVETIRACETAM 500 MG (PMX) 100 ML IVPB ×2 (09:11→21:15)
[2018-10-19] MEDS: POTASSIUM CHLORIDE 20 MEQ POWDER FOR ORAL SOLN PO (10:09)
[2018-10-19] MEDS: FAMOTIDINE 20 MG INJ IV (10:09)
[2018-10-19 12:18] LABS: ANION GAP 4 (5-13); BLOOD UREA NITROGEN 11 mg/dl (7-20); CALCIUM 9.7 mg/dl (8.4-10.2); CARBON DIOXIDE 33 mmol/L (21-31); CHLORIDE 128 mmol/L (97-110); CREATININE 0.49 mg/dl (0.44-1.00); Estimated GFR > 60 mL/min (>60); GLUCOSE 164 mg/dl (70-220); POTASSIUM 4.4 mmol/L (3.5-5.1)
[2018-10-19 12:22] LABS: SODIUM 165 mmol/L (135-144)
[2018-10-19] MEDS: BACITRACIN 0.9 GM OINT TOP (12:33)
[2018-10-19] MEDS: FENTAnyl (DRIP) 1000 mcg/100mL 100 ML IV (12:40)
[2018-10-19] MEDS: PHYTONADIONE 10 MG in DEXTROSE 5% 50 ML IVPB (13:23)
[2018-10-19 14:53] LABS: SODIUM,URINE RANDOM 96 mmol/L (30-90)
[2018-10-19 15:51] LABS: OSMOLALITY,URINE 427 mOsm/kg (250-1200)
[2018-10-19] MEDS: DESMOPRESSIN 4 MCG INJ SC ×2 (17:44→21:15)
[2018-10-19 18:46] LABS: ANION GAP 4 (5-13); BLOOD UREA NITROGEN 10 mg/dl (7-20); CALCIUM 10.1 mg/dl (8.4-10.2); CARBON DIOXIDE 34 mmol/L (21-31); CHLORIDE 128 mmol/L (97-110); CREATININE 0.61 mg/dl (0.44-1.00); Estimated GFR > 60 mL/min (>60); GLUCOSE 176 mg/dl (70-220)
[2018-10-19 18:51] LABS: SODIUM 166 mmol/L (135-144)
[2018-10-19] MEDS: SOD CHLORIDE 0.9% 1,000 ML IV (22:36)
[2018-10-19] MEDS: PHENYLephrine 20MG IN 250 ML 250 ML IV (22:41)
[2018-10-20] MEDS: DEXTROSE 5% 1,000 ML IV ×3 (00:31→23:55)
[2018-10-20] MEDS: PHENYLephrine 20MG IN 250 ML 250 ML IV ×5 (00:38→17:51)
[2018-10-20 01:22] LABS: ANION GAP 5 (5-13); BLOOD UREA NITROGEN 7 mg/dl (7-20); CARBON DIOXIDE 22 mmol/L (21-31); CHLORIDE 129 mmol/L (97-110); CREATININE 0.35 mg/dl (0.44-1.00); Estimated GFR > 60 mL/min (>60); GLUCOSE 178 mg/dl (70-220); SODIUM 156 mmol/L (135-144)
[2018-10-20 01:28] LABS: POTASSIUM 2.4 mmol/L (3.5-5.1)
[2018-10-20] MEDS: POTASSIUM CHLORIDE 50 ML IVPB ×3 (01:31→23:19)
[2018-10-20] MEDS: PROPOFOL 100 ML IV ×2 (01:31→07:59)
[2018-10-20] MEDS: POTASSIUM CHLORIDE 100 ML IVPB ×2 (02:37→04:36)
[2018-10-20] MEDS: METOCLOPRAMIDE 10 MG INJ IV ×3 (06:03→21:51)
[2018-10-20] MEDS: MANNITOL 20% 125 ML IV ×2 (06:54→11:00)
[2018-10-20 07:19] LABS: ADD MAN DIFF? NO
[2018-10-20 07:22] LABS: WHITE BLOOD COUNT 9.6 10^3/ul (4.8-10.8)
[2018-10-20 07:22] LABS: ABNORMAL IP MESSAGE 1; MEAN CORPUSCULAR HEMOGLOBIN 28.7 pg (29.0-33.0); MEAN CORPUSCULAR HGB CONC 29.1 g/dl (32.0-37.0); MEAN CORPUSCULAR VOLUME 98.7 fl (82.0-101.0); MEAN PLATELET VOLUME 9.8 fl (7.4-10.4); NUCLEATED RED BLOOD CELLS% 0.2 /100WBC (0.0-0.0); PLATELET COUNT 178 10^3/UL (140-415); RED BLOOD COUNT 2.23 10^6/ul (4.20-5.40); RED CELL DISTRIBUTION WIDTH 13.3 % (11.5-14.5)
[2018-10-20 07:26] LABS: POSITIVE DIFF @See below
[2018-10-20 07:28] LABS: HEMOGLOBIN 6.4 g/dl (12.0-16.0)
[2018-10-20 07:29] LABS: PATH REVIEW? YES
[2018-10-20 07:45] LABS: INR 1.53; PROTIME 18.5 Sec (11.9-14.9); PT RATIO 1.4
[2018-10-20 07:47] LABS: ANION GAP 6 (5-13); BLOOD UREA NITROGEN 6 mg/dl (7-20); CALCIUM 6.8 mg/dl (8.4-10.2); CARBON DIOXIDE 23 mmol/L (21-31); CHLORIDE 119 mmol/L (97-110); CREATININE 0.29 mg/dl (0.44-1.00); Estimated GFR > 60 mL/min (>60); GLUCOSE 252 mg/dl (70-220); MAGNESIUM 1.5 mg/dl (1.7-2.5); PHOSPHORUS 2.3 mg/dl (2.5-4.9); SODIUM 148 mmol/L (135-144)
[2018-10-20] MEDS: DOCUSATE SODIUM 10 MG/ML (10ML CUP) NGT ×2 (08:31→21:51)
[2018-10-20] MEDS: LISINOPRIL 5 MG TAB GTB (08:31)
[2018-10-20 08:32] LABS: ANISOCYTOSIS 1+ (0-0); BAND NEUTROPHILS #M 0.7 10^3/ul (0.0-0.6); BAND NEUTROPHILS % (M) 8 % (0-4); GIANT THROMBO% (M) 2 % (0-0); LYMPHOCYTES #M 1.2 10^3/ul (0.8-2.9); LYMPHOCYTES % (M) 13 % (15-51); METAMYELOCYTES %M 1 % (0-0); MICROCYTOSIS 1+ (0-0); MONOCYTE #M 0.1 10^3/ul (0.3-0.9); MONOCYTES % (M) 2 % (0-11); PLATELET ESTIMATE NORMAL; SEG NEUT #M 7.4 10^3/ul (1.6-7.5); SEGMENTED NEUTROPHILS (M) % 76 % (39-77); SMUDGE%M 4 % (0-0)
[2018-10-20] MEDS: PHYTONADIONE 10 MG in DEXTROSE 5% 50 ML IVPB (08:58)
[2018-10-20] MEDS: LEVETIRACETAM 500 MG (PMX) 100 ML IVPB ×2 (08:59→21:51)
[2018-10-20] MEDS: DEXTROSE 5%-0.45% NACL 1,000 ML IV ×4 (08:59→23:05)
[2018-10-20] MEDS: FAMOTIDINE 20 MG INJ IV (08:59)
[2018-10-20 10:53] LABS: WHITE BLOOD COUNT 10.1 10^3/ul (4.8-10.8)
[2018-10-20 10:53] LABS: ADD MAN DIFF? NO; BASOPHILS % 0.3 % (0.0-2.0); EOSINOPHILS # 0.2 10^3/ul (0.0-0.5); EOSINOPHILS % 1.7 % (0.0-7.0); HEMATOCRIT 25.3 % (37.0-47.0); HEMOGLOBIN 7.4 g/dl (12.0-16.0); LYMPHOCYTES # 1.2 10^3/ul (0.8-2.9); LYMPHOCYTES % 11.6 % (15.0-51.0); MEAN CORPUSCULAR HEMOGLOBIN 28.8 pg (29.0-33.0); MEAN CORPUSCULAR HGB CONC 29.2 g/dl (32.0-37.0); MEAN CORPUSCULAR VOLUME 98.4 fl (82.0-101.0); MEAN PLATELET VOLUME 9.7 fl (7.4-10.4); MONOCYTE # 0.4 10^3/ul (0.3-0.9); MONOCYTES % 4.2 % (0.0-11.0); NEUTROPHIL # 8.2 10^3/ul (1.6-7.5); NEUTROPHILS % 81.1 % (39.0-77.0); NUCLEATED RED BLOOD CELLS% 0.2 /100WBC (0.0-0.0); PLATELET COUNT 187 10^3/UL (140-415); RED BLOOD COUNT 2.57 10^6/ul (4.20-5.40); RED CELL DISTRIBUTION WIDTH 13.1 % (11.5-14.5)
[2018-10-20 18:07] LABS: AADO2 Arterial 59.3 mmHg (7.0-24.0); Allen Test ACCEPTAB; Arterial Base Excess 1.7 mmol/L (-3.0-3); Arterial Blood Gas Oxygen Sat 97.5 mmHG (95.0-98.0); Arterial COHb 0.2 % (0.0-3.0); Arterial HCO3 26.3 mmol/L (22.0-26.0); Arterial MetHb 0.3 % (0.0-1.5); Arterial pCO2 41.2 mmhg (35-45); MODE VENT - AC; Site Left Radial
[2018-10-20 18:48] LABS: AADO2 Arterial 310.2 mmHg (7.0-24.0); Allen Test ACCEPTAB; Arterial Base Excess 0.5 mmol/L (-3.0-3); Arterial Blood Gas Oxygen Sat 99.2 mmHG (95.0-98.0); Arterial COHb 0.3 % (0.0-3.0); Arterial Fraction of Oxyhgb 98.2 % (93.0-99.0); Arterial HCO3 30.1 mmol/L (22.0-26.0); Arterial MetHb 0.7 % (0.0-1.5); Arterial pCO2 80.2 mmhg (35-45); MODE NASAL CANNULA; Site Left Radial
[2018-10-20 21:23] LABS: ADD MAN DIFF? NO
[2018-10-20 21:24] LABS: BASOPHILS % 0.4 % (0.0-2.0); EOSINOPHILS # 0.1 10^3/ul (0.0-0.5); EOSINOPHILS % 1.6 % (0.0-7.0); HEMATOCRIT 30.5 % (37.0-47.0); HEMOGLOBIN 8.9 g/dl (12.0-16.0); LYMPHOCYTES # 0.8 10^3/ul (0.8-2.9); LYMPHOCYTES % 9.9 % (15.0-51.0); MEAN CORPUSCULAR HEMOGLOBIN 28.5 pg (29.0-33.0); MEAN CORPUSCULAR HGB CONC 29.2 g/dl (32.0-37.0); MEAN CORPUSCULAR VOLUME 97.8 fl (82.0-101.0); MEAN PLATELET VOLUME 9.9 fl (7.4-10.4); MONOCYTE # 0.2 10^3/ul (0.3-0.9); NEUTROPHIL # 6.5 10^3/ul (1.6-7.5); NEUTROPHILS % 85.4 % (39.0-77.0); PLATELET COUNT 201 10^3/UL (140-415); RED BLOOD COUNT 3.12 10^6/ul (4.20-5.40); RED CELL DISTRIBUTION WIDTH 13.1 % (11.5-14.5)
[2018-10-20 21:24] LABS: WHITE BLOOD COUNT 7.6 10^3/ul (4.8-10.8)
[2018-10-20 21:41] LABS: LACTIC ACID 2.1 mmol/L (0.5-2.0)
[2018-10-20] MEDS: PHENYLephrine 80 MG in DEXTROSE 5% 242 ML IV (22:27)
[2018-10-20 22:32] LABS: ADD MAN DIFF? NO
[2018-10-20 22:34] LABS: BASOPHILS % 0.4 % (0.0-2.0); EOSINOPHILS # 0.2 10^3/ul (0.0-0.5); EOSINOPHILS % 1.8 % (0.0-7.0); HEMATOCRIT 31.4 % (37.0-47.0); HEMOGLOBIN 9.1 g/dl (12.0-16.0); LYMPHOCYTES # 0.8 10^3/ul (0.8-2.9); LYMPHOCYTES % 9.5 % (15.0-51.0); MEAN CORPUSCULAR HEMOGLOBIN 28.3 pg (29.0-33.0); MEAN CORPUSCULAR VOLUME 97.5 fl (82.0-101.0); MEAN PLATELET VOLUME 9.8 fl (7.4-10.4); MONOCYTE # 0.1 10^3/ul (0.3-0.9); MONOCYTES % 1.5 % (0.0-11.0); NEUTROPHIL # 7.1 10^3/ul (1.6-7.5); NEUTROPHILS % 86.1 % (39.0-77.0); PLATELET COUNT 202 10^3/UL (140-415); RED BLOOD COUNT 3.22 10^6/ul (4.20-5.40); RED CELL DISTRIBUTION WIDTH 13.1 % (11.5-14.5)
[2018-10-20 22:34] LABS: WHITE BLOOD COUNT 8.2 10^3/ul (4.8-10.8)
[2018-10-20 22:55] LABS: ANION GAP 5 (5-13); BLOOD UREA NITROGEN 7 mg/dl (7-20); CALCIUM 9.3 mg/dl (8.4-10.2); CARBON DIOXIDE 27 mmol/L (21-31); CHLORIDE 143 mmol/L (97-110); CREATININE 0.42 mg/dl (0.44-1.00); Estimated GFR > 60 mL/min (>60); GLUCOSE 214 mg/dl (70-220)
[2018-10-20 22:58] LABS: POTASSIUM 2.2 mmol/L (3.5-5.1); SODIUM 175 mmol/L (135-144)
[2018-10-20] MEDS: DESMOPRESSIN 4 MCG INJ SC (23:55)
[2018-10-21] MEDS: POTASSIUM CHLORIDE 50 ML IVPB ×5 (00:39→09:18)
[2018-10-21] MEDS: NORepinephrine 8MG/250 ML (PMX 250 ML IV ×4 (02:00→19:33)
[2018-10-21] MEDS: VASOPRESSIN 60 UNIT in DEXTROSE 5% 57 ML IV ×2 (03:41→15:35)
[2018-10-21] MEDS: DEXTROSE 5% 1,000 ML IV ×7 (04:04→22:47)
[2018-10-21] MEDS: PHENYLephrine 80 MG in DEXTROSE 5% 242 ML IV ×4 (04:32→19:32)
[2018-10-21] MEDS: METOCLOPRAMIDE 10 MG INJ IV ×3 (05:37→21:31)
[2018-10-21] MEDS: ACETAMINOPHEN 650MG/20.3ML CUP NGT (05:42)
[2018-10-21 06:16] LABS: ANION GAP 5 (5-13); BLOOD UREA NITROGEN 8 mg/dl (7-20); CALCIUM 8.6 mg/dl (8.4-10.2); CARBON DIOXIDE 26 mmol/L (21-31); CHLORIDE 134 mmol/L (97-110); CREATININE 0.98 mg/dl (0.44-1.00); Estimated GFR > 60 mL/min (>60); GLUCOSE 251 mg/dl (70-220); POTASSIUM 3.3 mmol/L (3.5-5.1)
[2018-10-21 06:25] LABS: SODIUM 165 mmol/L (135-144)
[2018-10-21] MEDS ORDERED: VANCOMYCIN IV PER PHARMACY XX (06:30)
[2018-10-21] MEDS: PIPER-TAZO 3.375 GM IV (PMX) 100 ML IVPB ×4 (06:45→23:51)
[2018-10-21] MEDS: VANCOMYCIN 1 GM 250 ML IVPB (07:59)
[2018-10-21] MEDS: HYDROCORTISONE 100 MG INJ IV ×3 (07:59→21:31)
[2018-10-21] MEDS: DOCUSATE SODIUM 10 MG/ML (10ML CUP) NGT ×2 (08:39→20:28)
[2018-10-21] MEDS: FAMOTIDINE 20 MG INJ IV (08:39)
[2018-10-21] MEDS: LEVETIRACETAM 500 MG (PMX) 100 ML IVPB ×2 (08:39→20:28)
[2018-10-21] MEDS: PHYTONADIONE 10 MG in DEXTROSE 5% 50 ML IVPB (08:50)
[2018-10-21] MEDS: DESMOPRESSIN 4 MCG INJ SC ×2 (09:38→20:28)
[2018-10-21] MEDS: BACITRACIN 0.9 GM OINT TOP (10:00)
[2018-10-21 11:36] LABS: ANION GAP 6 (5-13); BLOOD UREA NITROGEN 9 mg/dl (7-20); CALCIUM 7.8 mg/dl (8.4-10.2); CARBON DIOXIDE 23 mmol/L (21-31); CHLORIDE 123 mmol/L (97-110); CREATININE 0.93 mg/dl (0.44-1.00); Estimated GFR > 60 mL/min (>60); GLUCOSE 362 mg/dl (70-220); POTASSIUM 5.4 mmol/L (3.5-5.1); SODIUM 152 mmol/L (135-144)
[2018-10-21] MEDS: PROPOFOL 100 ML IV ×2 (13:30→23:51)
[2018-10-21] MEDS: VANCOMYCIN 500 MG (PMX) 100 ML IVPB (20:28)
[2018-10-22] MEDS: NORepinephrine 8MG/250 ML (PMX 250 ML IV ×2 (01:51→09:43)
[2018-10-22 03:16] LABS: ADD UMIC YES; UR ASCORBIC ACID NEGATIVE (NEGATIVE); UR BACTERIA FEW /HPF (NONE SEEN); UR BILIRUBIN (Dip) NEGATIVE (NEGATIVE); UR BLOOD (Dip) 2+ mg/dL (NEGATIVE); UR BUDDING YEAST MODERATE /HPF (NONE SEEN); UR CLARITY TURBID (CLEAR); UR COLOR YELLOW (YELLOW); UR GLUCOSE (Dip) NEGATIVE (NEGATIVE); UR KETONES (Dip) NEGATIVE (NEGATIVE); UR LEUKOCYTE ESTERASE (Dip) 2+ Leu/ul (NEGATIVE); UR MUCUS MANY /HPF (NONE SEEN); UR NITRITE (Dip) NEGATIVE (NEGATIVE); UR NONSQUAMOUS EPITHELIAL CELL 5 /HPF (NONE SEEN); UR RBC 90 /HPF (0-5); UR SPECIFIC GRAVITY (Dip) 1.017 (1.003-1.030); UR SQUAMOUS EPITHELIAL CELL FEW /HPF (FEW); UR TOTAL PROTEIN (Dip) 3+ mg/dl (NEGATIVE); UR UROBILINOGEN (Dip) NEGATIVE (NEGATIVE); UR WBC > 182 /HPF (0-5)
[2018-10-22] MEDS: DEXTROSE 5% 1,000 ML IV ×3 (03:21→13:18)
[2018-10-22] MEDS: VASOPRESSIN 60 UNIT in DEXTROSE 5% 57 ML IV ×3 (03:30→14:41)
[2018-10-22] MEDS: HYDROCORTISONE 100 MG INJ IV (05:14)
[2018-10-22] MEDS: METOCLOPRAMIDE 10 MG INJ IV (05:14)
[2018-10-22] MEDS: PIPER-TAZO 3.375 GM IV (PMX) 100 ML IVPB ×2 (05:15→11:34)
[2018-10-22] MEDS: VANCOMYCIN 500 MG (PMX) 100 ML IVPB (07:42)
[2018-10-22] MEDS: PHYTONADIONE 10 MG in DEXTROSE 5% 50 ML IVPB (08:18)
[2018-10-22] MEDS: DESMOPRESSIN 4 MCG INJ SC (08:18)
[2018-10-22] MEDS: FAMOTIDINE 20 MG INJ IV (08:18)
[2018-10-22] MEDS: LEVETIRACETAM 500 MG (PMX) 100 ML IVPB (08:18)
[2018-10-22] MEDS: DOCUSATE SODIUM 10 MG/ML (10ML CUP) NGT (08:30)
[2018-10-22] MEDS: PROPOFOL 100 ML IV (13:19)
== END 2018-10-22 15:12 | disposition expired | DRG 853 ==
LOC: ICU 09:51 → 6WM 09-30 19:19 → 5EC 10-03 18:17 → 2NE 10-08 21:03 → ICU 10-09 20:11 → E/R 06:23
PROC: 02HV33Z Insertion of Infusion Device into Superior Vena Cava, Percutaneous Approach (ICD-10-PCS; principal; 2018-10-16 13:18)
PROC: 009630Z Drainage of Cerebral Ventricle with Drainage Device, Percutaneous Approach (ICD-10-PCS; 2018-10-16 13:18)
PROC: 009630Z Drainage of Cerebral Ventricle with Drainage Device, Percutaneous Approach (ICD-10-PCS; 2018-10-16 13:18)
PROC: 009U3ZX Drainage of Spinal Canal, Percutaneous Approach, Diagnostic (ICD-10-PCS; 2018-10-16 13:18)
PROC: 0DH63UZ Insertion of Feeding Device into Stomach, Percutaneous Approach (ICD-10-PCS; 2018-10-16 13:18)
PROC: 00P6X0Z Removal of Drainage Device from Cerebral Ventricle, External Approach (ICD-10-PCS; 2018-10-16 13:18)
PROC: 0BH18EZ Insertion of Endotracheal Airway into Trachea, Via Natural or Artificial Opening Endoscopic (ICD-10-PCS; 2018-10-16 13:18)
PROC: 03HY32Z Insertion of Monitoring Device into Upper Artery, Percutaneous Approach (ICD-10-PCS; 2018-10-16 13:18)
PROC: 5A1955Z Respiratory Ventilation, Greater than 96 Consecutive Hours (ICD-10-PCS; 2018-10-16 13:18)
PROC: 30233K1 Transfusion of Nonautologous Frozen Plasma into Peripheral Vein, Percutaneous Approach (ICD-10-PCS; 2018-10-16 13:18)
DX: A41.9 Sepsis, unspecified organism (principal); G00.9 Bacterial meningitis, unspecified; J96.00 Acute respiratory failure, unspecified whether with hypoxia or hypercapnia; I63.9 Cerebral infarction, unspecified; R40.20 Unspecified coma; G93.41 Metabolic encephalopathy; E87.0 Hyperosmolality and hypernatremia; G93.49 Other encephalopathy; E22.2 Syndrome of inappropriate secretion of antidiuretic hormone; R57.9 Shock, unspecified; T85.830A Hemorrhage due to nervous system prosthetic devices, implants and grafts, initial encounter; T85.890A Other specified complication of nervous system prosthetic devices, implants and grafts, initial encounter; G91.4 Hydrocephalus in diseases classified elsewhere; R13.10 Dysphagia, unspecified; D69.2 Other nonthrombocytopenic purpura; E87.6 Hypokalemia; E87.5 Hyperkalemia; Z66 Do not resuscitate
CPT/HCPCS: 31500; 36415; 36430; 36569; 36600; 70450; 70470; 70496; 70546; 70551; 70553; 71045; 76937; 80048; 80053; 80202; 80307; 81001; 81003; 82043; 82164; 82533; 82550; 82553; 82565; 82803; 82945; 82962; 83036; 83605; 83615; 83735; 83935; 84100; 84145; 84155; 84157; 84300; 84443; 84484; 84520; 84703; 85025; 85049; 85230; 85610; 85651; 85670; 85730; 86021; 86038; 86480; 86592; 86641; 86788; 86789; 86850; 86900; 86901; 87040-91; 87070; 87077; 87081; 87086; 87102; 87116; 87400; 87529; 89051; 89220; 93005; 93306; 94002; 94003; 94770; 95819; 96365; 96366; 96368; 96375; 99291-25

== ENCOUNTER 2018-10-22 15:10 | Inpatient (IN) | payer OTHER ==
[2018-10-22 16:05] LABS: AADO2 Arterial 83.7 mmHg (7.0-24.0); Arterial Base Excess -2.5 mmol/L (-3.0-3); Arterial Blood Gas Oxygen Sat 96.4 mmHG (95.0-98.0); Arterial COHb 0.3 % (0.0-3.0); Arterial Fraction of Oxyhgb 95.7 % (93.0-99.0); Arterial HCO3 22.3 mmol/L (22.0-26.0); Arterial MetHb 0.4 % (0.0-1.5); Arterial pCO2 38.1 mmhg (35-45); MODE VENT - AC; Site Right Radial
[2018-10-22] MEDS: NORepinephrine 8MG/250 ML (PMX 250 ML IV ×2 (17:10→22:37)
[2018-10-22 17:13] LABS: ABNORMAL IP MESSAGE 1; HEMOGLOBIN 7.8 g/dl (12.0-16.0); MEAN CORPUSCULAR HEMOGLOBIN 28.8 pg (29.0-33.0); MEAN CORPUSCULAR HGB CONC 32.5 g/dl (32.0-37.0); MEAN CORPUSCULAR VOLUME 88.6 fl (82.0-101.0); MEAN PLATELET VOLUME 10.8 fl (7.4-10.4); NUCLEATED RED BLOOD CELLS% 0.5 /100WBC (0.0-0.0); PLATELET COUNT 145 10^3/UL (140-415); RED BLOOD COUNT 2.71 10^6/ul (4.20-5.40); RED CELL DISTRIBUTION WIDTH 12.3 % (11.5-14.5)
[2018-10-22 17:13] LABS: WHITE BLOOD COUNT 22.2 10^3/ul (4.8-10.8)
[2018-10-22 17:15] LABS: ADD MAN DIFF? YES; POSITIVE DIFF @See below
[2018-10-22 17:20] LABS: ADD UMIC YES; UR ASCORBIC ACID NEGATIVE (NEGATIVE); UR BACTERIA FEW /HPF (NONE SEEN); UR BILIRUBIN (Dip) NEGATIVE (NEGATIVE); UR BLOOD (Dip) 3+ mg/dL (NEGATIVE); UR BUDDING YEAST MANY /HPF (NONE SEEN); UR CLARITY CLOUDY (CLEAR); UR COLOR YELLOW (YELLOW); UR GLUCOSE (Dip) 3+ mg/dL (NEGATIVE); UR KETONES (Dip) NEGATIVE (NEGATIVE); UR LEUKOCYTE ESTERASE (Dip) 2+ Leu/ul (NEGATIVE); UR MUCUS FEW /HPF (NONE SEEN); UR NITRITE (Dip) POSITIVE (NEGATIVE); UR RBC > 182 /HPF (0-5); UR SPECIFIC GRAVITY (Dip) 1.023 (1.003-1.030); UR TOTAL PROTEIN (Dip) NEGATIVE (NEGATIVE); UR UROBILINOGEN (Dip) NEGATIVE (NEGATIVE); UR WBC 102 /HPF (0-5)
[2018-10-22] MEDS: VASOPRESSIN 60 UNIT in DEXTROSE 5% 57 ML IV ×2 (17:30→18:20)
[2018-10-22 17:45] LABS: LACTIC ACID 1.8 mmol/L (0.5-2.0)
[2018-10-22 17:46] LABS: CREATINE KINASE 424 IU/L (23-200); LACTATE DEHYDROGENASE 1229 IU/L (313-618); LIPASE 47 U/L (23-300); MAGNESIUM 1.8 mg/dl (1.7-2.5)
[2018-10-22 17:46] LABS: PHOSPHORUS 2.7 mg/dl (2.5-4.9)
[2018-10-22 17:47] LABS: ALANINE AMINOTRANSFERASE 62 IU/L (13-69); ALBUMIN 2.3 g/dl (3.3-4.9); ALBUMIN/GLOBULIN RATIO 0.88; ALKALINE PHOSPHATASE 136 IU/L (42-121); ANION GAP 10 (5-13); ASPARTATE AMINO TRANSFERASE 53 IU/L (15-46); BILIRUBIN,INDIRECT 0.5 mg/dl (0-1.1); BILIRUBIN,TOTAL 0.5 mg/dl (0.2-1.3); BLOOD UREA NITROGEN 19 mg/dl (7-20); CALCIUM 7.7 mg/dl (8.4-10.2); CARBON DIOXIDE 26 mmol/L (21-31); CHLORIDE 97 mmol/L (97-110); CREATININE 0.71 mg/dl (0.44-1.00); Estimated GFR > 60 mL/min (>60); SODIUM 133 mmol/L (135-144); TOTAL PROTEIN 4.9 g/dl (6.1-8.1)
[2018-10-22 17:48] LABS: INR 1.28; PROTIME 16.1 Sec (11.9-14.9); PT RATIO 1.3
[2018-10-22 17:49] LABS: PARTIAL THROMBOPLASTIN TIME 36.5 Sec (23.0-35.0)
[2018-10-22 17:52] LABS: AMYLASE < 30 U/L (11-123)
[2018-10-22 17:57] LABS: CK INDEX 3.2
[2018-10-22] MEDS: ARTIFICIAL TEARS 15 ML OPH BOTH EYES ×4 (18:00→23:03)
[2018-10-22] MEDS ORDERED: ARTIFICIAL TEARS 15 ML OPH BOTH EYES (18:00)
[2018-10-22 18:23] LABS: POTASSIUM 2.7 mmol/L (3.5-5.1)
[2018-10-22 18:24] LABS: GLUCOSE 695 mg/dl (70-220)
[2018-10-22] MEDS ORDERED: DEXTROSE 50% 50 ML SYRINGE IV ×3 (18:30)
[2018-10-22] MEDS: POTASSIUM CHLORIDE 50 ML IVPB ×3 (18:49→23:03)
[2018-10-22] MEDS: ACCU-CHEK XX ×7 (18:53→23:51)
[2018-10-22 18:59] LABS: ANISOCYTOSIS 2+ (0-0); BAND NEUTROPHILS #M 1.1 10^3/ul (0.0-0.6); BAND NEUTROPHILS % (M) 5 % (0-4); LYMPHOCYTES #M 0.6 10^3/ul (0.8-2.9); LYMPHOCYTES % (M) 3 % (15-51); MICROCYTOSIS 2+ (0-0); MONOCYTE #M 0.2 10^3/ul (0.3-0.9); MONOCYTES % (M) 1 % (0-11); PLATELET ESTIMATE DECREASED; POIKILOCYTOSIS 1+ (0-0); SEG NEUT #M 20.4 10^3/ul (1.6-7.5); SEGMENTED NEUTROPHILS (M) % 91 % (39-77); SMUDGE%M 1 % (0-0)
[2018-10-22 19:15] LABS: VANCOMYCIN,RANDOM 9.5 ug/ml
[2018-10-22 19:51] LABS: OSMOLALITY 311 mOsm/kg (280-295)
[2018-10-22 21:24] LABS: GLUCOSE 551 mg/dl (70-220)
[2018-10-22] MEDS: INSULIN REGULAR, HUMAN 100 UNIT/1 ML 3ML VIAL IVP (21:30)
[2018-10-22] MEDS: VASOPRESSIN 60 UNIT in SOD CHLORIDE 0.9% 57 ML IV (21:33)
[2018-10-22] MEDS: CA CHLORIDE 10% 10 ML SYRINGE IV (21:38)
[2018-10-22] MEDS ORDERED: METHYLPRED. NA SUCC 500 MG in SOD CHLORIDE 0.9% 100 ML IVPB (22:00)
[2018-10-22 22:23] LABS: GLUCOSE 512 mg/dl (70-220)
[2018-10-22] MEDS: INSULIN HUMAN REGULAR 100 UNIT in SOD CHLORIDE 0.9% 99 ML IV (22:36)
[2018-10-22] MEDS: NACL 3% 500 ML IV (22:45)
[2018-10-22] MEDS: LEVOTHYROXINE 200 MCG in SOD CHLORIDE 0.9% 500 ML IV (22:45)
[2018-10-22] MEDS: THIAMINE 500 MG in SOD CHLORIDE 0.9% 100 ML IV (22:48)
[2018-10-22] MEDS: METHYLPRED NA SUCC IVPB (22:48)
[2018-10-22] MEDS: SOD CHLORIDE 0.9% IVPB (22:48)
[2018-10-23] MEDS ORDERED: SOD CHLORIDE 0.9% IVPB
[2018-10-23] MEDS ORDERED: THIAMINE 100 MG in SOD CHLORIDE 0.9% 100 ML IV
[2018-10-23] MEDS ORDERED: VANCOMYCIN IVPB
[2018-10-23 00:16] LABS: AADO2 Arterial 52.4 mmHg (7.0-24.0); Arterial Base Excess -0.8 mmol/L (-3.0-3); Arterial Blood Gas Oxygen Sat 97.5 mmHG (95.0-98.0); Arterial COHb 0.3 % (0.0-3.0); Arterial Fraction of Oxyhgb 96.7 % (93.0-99.0); Arterial HCO3 24.4 mmol/L (22.0-26.0); Arterial MetHb 0.5 % (0.0-1.5); Arterial pCO2 43.1 mmhg (35-45); MODE VENT - AC; Site A-Line
[2018-10-23 00:42] LABS: ADD MAN DIFF? NO
[2018-10-23 00:43] LABS: BASOPHILS % 0.1 % (0.0-2.0); HEMATOCRIT 21.3 % (37.0-47.0); HEMOGLOBIN 7.1 g/dl (12.0-16.0); LYMPHOCYTES # 1.2 10^3/ul (0.8-2.9); LYMPHOCYTES % 6.3 % (15.0-51.0); MEAN CORPUSCULAR HEMOGLOBIN 28.9 pg (29.0-33.0); MEAN CORPUSCULAR HGB CONC 33.3 g/dl (32.0-37.0); MEAN CORPUSCULAR VOLUME 86.6 fl (82.0-101.0); MEAN PLATELET VOLUME 10.7 fl (7.4-10.4); MONOCYTE # 0.3 10^3/ul (0.3-0.9); MONOCYTES % 1.8 % (0.0-11.0); NEUTROPHIL # 16.9 10^3/ul (1.6-7.5); NEUTROPHILS % 90.8 % (39.0-77.0); NUCLEATED RED BLOOD CELLS # 0.1 10^3/ul (0.0-0.0); NUCLEATED RED BLOOD CELLS% 0.6 /100WBC (0.0-0.0); PLATELET COUNT 148 10^3/UL (140-415); RED BLOOD COUNT 2.46 10^6/ul (4.20-5.40)
[2018-10-23 00:43] LABS: WHITE BLOOD COUNT 18.6 10^3/ul (4.8-10.8)
[2018-10-23] MEDS: ACCU-CHEK XX ×23 (00:54→23:00)
[2018-10-23] MEDS ORDERED: VANCOMYCIN 1 GM 250 ML IVPB (01:00)
[2018-10-23 01:03] LABS: INR 1.27; PT RATIO 1.3
[2018-10-23 01:04] LABS: PARTIAL THROMBOPLASTIN TIME 31.5 Sec (23.0-35.0)
[2018-10-23 01:07] LABS: CREATINE KINASE 306 IU/L (23-200); LACTATE DEHYDROGENASE 1110 IU/L (313-618); LIPASE 24 U/L (23-300)
[2018-10-23 01:07] LABS: PHOSPHORUS 2.4 mg/dl (2.5-4.9)
[2018-10-23 01:12] LABS: AMYLASE < 30 U/L (11-123)
[2018-10-23 01:13] LABS: LACTIC ACID 2.4 mmol/L (0.5-2.0)
[2018-10-23] MEDS: DOBUTamine/D5W 2 MG/ML DRIP 250 ML IV (01:16)
[2018-10-23] MEDS: ARTIFICIAL TEARS 15 ML OPH BOTH EYES ×12 (01:17→23:47)
[2018-10-23] MEDS: POTASSIUM CHLORIDE 50 ML IVPB ×10 (01:17→22:37)
[2018-10-23 01:18] LABS: CK INDEX 4.9
[2018-10-23 01:30] LABS: AADO2 Arterial 90.3 mmHg (7.0-24.0); Arterial Base Excess 1.2 mmol/L (-3.0-3); Arterial COHb 0.3 % (0.0-3.0); Arterial Fraction of Oxyhgb 94.5 % (93.0-99.0); Arterial HCO3 25.7 mmol/L (22.0-26.0); Arterial MetHb 0.2 % (0.0-1.5); Arterial pCO2 40.6 mmhg (35-45); Blood Gas Low PEEP Setting 0 cmH2O; Blood Gas PS 0; MODE VENT - BIPHASIC; Site A-Line
[2018-10-23 01:35] LABS: ALANINE AMINOTRANSFERASE 47 IU/L (13-69); ALBUMIN 2.3 g/dl (3.3-4.9); ALBUMIN/GLOBULIN RATIO 0.79; ALKALINE PHOSPHATASE 123 IU/L (42-121); ANION GAP 6 (5-13); ASPARTATE AMINO TRANSFERASE 74 IU/L (15-46); BILIRUBIN,INDIRECT 0.5 mg/dl (0-1.1); BILIRUBIN,TOTAL 0.5 mg/dl (0.2-1.3); BLOOD UREA NITROGEN 18 mg/dl (7-20); CALCIUM 9.6 mg/dl (8.4-10.2); CARBON DIOXIDE 28 mmol/L (21-31); CHLORIDE 107 mmol/L (97-110); CREATININE 0.66 mg/dl (0.44-1.00); Estimated GFR > 60 mL/min (>60); GLUCOSE 377 mg/dl (70-220); SODIUM 141 mmol/L (135-144); TOTAL PROTEIN 5.2 g/dl (6.1-8.1)
[2018-10-23 01:36] LABS: BILIRUBIN,INDIRECT 0.5 mg/dl (0-1.1); BILIRUBIN,TOTAL 0.5 mg/dl (0.2-1.3)
[2018-10-23 01:37] LABS: TROPONIN-I 0.999 ng/ml (0.000-0.120)
[2018-10-23 01:42] LABS: POTASSIUM 2.8 mmol/L (3.5-5.1)
[2018-10-23 01:50] LABS: IONIZED CALCIUM 1.4 mmol/L (1.1-1.4)
[2018-10-23 01:51] LABS: OSMOLALITY 306 mOsm/kg (280-295)
[2018-10-23] MEDS: ALBUMIN HUMAN 25% 100 ML IV ×2 (03:43→15:44)
[2018-10-23] MEDS: INSULIN HUMAN REGULAR 100 UNIT in SOD CHLORIDE 0.9% 99 ML IV ×3 (04:05→16:49)
[2018-10-23] MEDS: VANCOMYCIN 1 GM 250 ML IVPB (04:23)
[2018-10-23] MEDS: METHYLPRED. NA SUCC 500 MG in SOD CHLORIDE 0.9% 100 ML IVPB ×3 (05:25→21:26)
[2018-10-23] MEDS: THIAMINE 100 MG in SOD CHLORIDE 0.9% 100 ML IV ×3 (05:25→17:20)
[2018-10-23] MEDS: PIPER-TAZO 3.375 GM IV (PMX) 100 ML IVPB ×3 (05:25→21:26)
[2018-10-23] MEDS: FUROSEMIDE 40 MG INJ IV ×6 (05:26→23:43)
[2018-10-23 05:28] LABS: ADD MAN DIFF? NO
[2018-10-23 05:37] LABS: BASOPHILS % 0.2 % (0.0-2.0); HEMATOCRIT 25.7 % (37.0-47.0); HEMOGLOBIN 8.7 g/dl (12.0-16.0); LYMPHOCYTES # 0.7 10^3/ul (0.8-2.9); LYMPHOCYTES % 4.5 % (15.0-51.0); MEAN CORPUSCULAR HGB CONC 33.9 g/dl (32.0-37.0); MEAN CORPUSCULAR VOLUME 88.6 fl (82.0-101.0); MEAN PLATELET VOLUME 10.9 fl (7.4-10.4); MONOCYTE # 0.2 10^3/ul (0.3-0.9); MONOCYTES % 1.4 % (0.0-11.0); NEUTROPHILS % 93.2 % (39.0-77.0); NUCLEATED RED BLOOD CELLS # 0.1 10^3/ul (0.0-0.0); NUCLEATED RED BLOOD CELLS% 0.9 /100WBC (0.0-0.0); PLATELET COUNT 130 10^3/UL (140-415); RED CELL DISTRIBUTION WIDTH 12.8 % (11.5-14.5)
[2018-10-23] MEDS ORDERED: THIAMINE 200 MG INJ IVPB ×2 (06:00)
[2018-10-23 06:06] LABS: AADO2 Arterial 97.6 mmHg (7.0-24.0); Arterial Base Excess 0 mmol/L (-3.0-3); Arterial COHb 0.3 % (0.0-3.0); Arterial Fraction of Oxyhgb 93.4 % (93.0-99.0); Arterial HCO3 24.7 mmol/L (22.0-26.0); Arterial MetHb 0.3 % (0.0-1.5); Blood Gas Low PEEP Setting 0 cmH2O; MODE VENT - BIPHASIC; Site A-Line
[2018-10-23 06:12] LABS: INR 1.33; PARTIAL THROMBOPLASTIN TIME 32.6 Sec (23.0-35.0); PROTIME 16.6 Sec (11.9-14.9); PT RATIO 1.3
[2018-10-23 06:15] LABS: LACTIC ACID 1.7 mmol/L (0.5-2.0)
[2018-10-23 06:29] LABS: ADD UMIC YES; UR ASCORBIC ACID NEGATIVE (NEGATIVE); UR BACTERIA FEW /HPF (NONE SEEN); UR BILIRUBIN (Dip) NEGATIVE (NEGATIVE); UR BLOOD (Dip) 3+ mg/dL (NEGATIVE); UR BUDDING YEAST FEW /HPF (NONE SEEN); UR CLARITY SLIGHTLY CLOUDY (CLEAR); UR COLOR YELLOW (YELLOW); UR GLUCOSE (Dip) 3+ mg/dL (NEGATIVE); UR KETONES (Dip) NEGATIVE (NEGATIVE); UR LEUKOCYTE ESTERASE (Dip) NEGATIVE Leu/ul (NEGATIVE); UR MUCUS MODERATE /HPF (NONE SEEN); UR NITRITE (Dip) NEGATIVE (NEGATIVE); UR RBC 10 /HPF (0-5); UR SPECIFIC GRAVITY (Dip) 1.023 (1.003-1.030); UR TOTAL PROTEIN (Dip) 1+ mg/dl (NEGATIVE); UR UROBILINOGEN (Dip) NEGATIVE (NEGATIVE); UR WBC 12 /HPF (0-5)
[2018-10-23 06:54] LABS: IONIZED CALCIUM 1.3 mmol/L (1.1-1.4)
[2018-10-23] MEDS: VASOPRESSIN 60 UNIT in SOD CHLORIDE 0.9% 57 ML IV ×2 (07:04→21:42)
[2018-10-23] MEDS: ALBUMIN HUMAN 25% 50 ML IV (07:20)
[2018-10-23 07:32] LABS: ANION GAP 5 (5-13); BLOOD UREA NITROGEN 19 mg/dl (7-20); CALCIUM 9.3 mg/dl (8.4-10.2); CARBON DIOXIDE 27 mmol/L (21-31); CHLORIDE 110 mmol/L (97-110); CREATININE 0.62 mg/dl (0.44-1.00); Estimated GFR > 60 mL/min (>60); GLUCOSE 270 mg/dl (70-220); POTASSIUM 3.5 mmol/L (3.5-5.1); SODIUM 142 mmol/L (135-144)
[2018-10-23 07:43] LABS: PHOSPHORUS 2.1 mg/dl (2.5-4.9)
[2018-10-23 07:43] LABS: CREATINE KINASE 241 IU/L (23-200); LACTATE DEHYDROGENASE 1247 IU/L (313-618); LIPASE 18 U/L (23-300)
[2018-10-23 07:45] LABS: AMYLASE < 30 U/L (11-123)
[2018-10-23 07:56] LABS: CK INDEX 5.6
[2018-10-23] MEDS: INSULIN REGULAR, HUMAN 100 UNIT/1 ML 3ML VIAL IVP (08:05)
[2018-10-23 08:21] LABS: OSMOLALITY 306 mOsm/kg (280-295)
[2018-10-23 08:28] LABS: ALANINE AMINOTRANSFERASE 52 IU/L (13-69); ALBUMIN 2.6 g/dl (3.3-4.9); ALKALINE PHOSPHATASE 120 IU/L (42-121); ASPARTATE AMINO TRANSFERASE 69 IU/L (15-46); BILIRUBIN,INDIRECT 0.7 mg/dl (0-1.1); BILIRUBIN,TOTAL 0.7 mg/dl (0.2-1.3); TOTAL PROTEIN 5.6 g/dl (6.1-8.1)
[2018-10-23] MEDS ORDERED: DEXTROSE 50% 50 ML SYRINGE IV (08:30)
[2018-10-23] MEDS: CEFTRIAXONE 1 GM/50 ML (PMX) 50 ML IVPB ×2 (09:08→20:08)
[2018-10-23] MEDS: LEVOTHYROXINE 200 MCG in SOD CHLORIDE 0.9% 500 ML IV ×2 (09:44→16:57)
[2018-10-23] MEDS: INSULIN HUMAN REGULAR IV (10:59)
[2018-10-23] MEDS: DEXTROSE 50% IV (10:59)
[2018-10-23] MEDS: POTASSIUM CHLORIDE IV (10:59)
[2018-10-23 12:20] LABS: AADO2 Arterial 150.5 mmHg (7.0-24.0); Arterial Base Excess 1.6 mmol/L (-3.0-3); Arterial COHb 0.3 % (0.0-3.0); Arterial Fraction of Oxyhgb 95.2 % (93.0-99.0); Arterial HCO3 26.6 mmol/L (22.0-26.0); Arterial MetHb 0.5 % (0.0-1.5); Arterial pCO2 44.2 mmhg (35-45); Blood Gas Low PEEP Setting 0 cmH2O; MODE VENT - BIPHASIC; Site A-Line
[2018-10-23 12:22] LABS: ADD MAN DIFF? NO
[2018-10-23 12:25] LABS: ABNORMAL IP MESSAGE 1; BASOPHILS % 0.2 % (0.0-2.0); HEMATOCRIT 33.6 % (37.0-47.0); HEMOGLOBIN 11.6 g/dl (12.0-16.0); LYMPHOCYTES # 0.5 10^3/ul (0.8-2.9); LYMPHOCYTES % 4.6 % (15.0-51.0); MEAN CORPUSCULAR HEMOGLOBIN 29.8 pg (29.0-33.0); MEAN CORPUSCULAR HGB CONC 34.5 g/dl (32.0-37.0); MEAN CORPUSCULAR VOLUME 86.4 fl (82.0-101.0); MEAN PLATELET VOLUME 11.2 fl (7.4-10.4); MONOCYTE # 0.1 10^3/ul (0.3-0.9); MONOCYTES % 1.3 % (0.0-11.0); NEUTROPHIL # 9.3 10^3/ul (1.6-7.5); NEUTROPHILS % 92.6 % (39.0-77.0); NUCLEATED RED BLOOD CELLS # 0.1 10^3/ul (0.0-0.0); NUCLEATED RED BLOOD CELLS% 1.4 /100WBC (0.0-0.0); PLATELET COUNT 116 10^3/UL (140-415); RED BLOOD COUNT 3.89 10^6/ul (4.20-5.40); RED CELL DISTRIBUTION WIDTH 12.4 % (11.5-14.5)
[2018-10-23 12:31] LABS: POSITIVE DIFF @See below
[2018-10-23 12:41] LABS: PHOSPHORUS 2.1 mg/dl (2.5-4.9)
[2018-10-23 12:41] LABS: AMYLASE 33 U/L (11-123); CREATINE KINASE 224 IU/L (23-200); LACTATE DEHYDROGENASE 1277 IU/L (313-618); LIPASE 26 U/L (23-300); MAGNESIUM 1.8 mg/dl (1.7-2.5)
[2018-10-23 12:42] LABS: ALANINE AMINOTRANSFERASE 52 IU/L (13-69); ALBUMIN 3.2 g/dl (3.3-4.9); ALKALINE PHOSPHATASE 101 IU/L (42-121); ANION GAP 7 (5-13); ASPARTATE AMINO TRANSFERASE 62 IU/L (15-46); BILIRUBIN,INDIRECT 0.9 mg/dl (0-1.1); BILIRUBIN,TOTAL 0.9 mg/dl (0.2-1.3); BLOOD UREA NITROGEN 19 mg/dl (7-20); CARBON DIOXIDE 30 mmol/L (21-31); CHLORIDE 110 mmol/L (97-110); CREATININE 0.79 mg/dl (0.44-1.00); Estimated GFR > 60 mL/min (>60); GLUCOSE 157 mg/dl (70-220); POTASSIUM 3.5 mmol/L (3.5-5.1); SODIUM 147 mmol/L (135-144); TOTAL PROTEIN 6.1 g/dl (6.1-8.1)
[2018-10-23 12:45] LABS: LACTIC ACID 1.2 mmol/L (0.5-2.0)
[2018-10-23 12:45] LABS: BILIRUBIN,INDIRECT 0.9 mg/dl (0-1.1); BILIRUBIN,TOTAL 0.9 mg/dl (0.2-1.3); INR 1.23; PROTIME 15.6 Sec (11.9-14.9); PT RATIO 1.2
[2018-10-23 12:46] LABS: PARTIAL THROMBOPLASTIN TIME 26.9 Sec (23.0-35.0)
[2018-10-23 12:48] LABS: IONIZED CALCIUM 1.2 mmol/L (1.1-1.4)
[2018-10-23 12:48] LABS: ADD UMIC YES; UR ASCORBIC ACID NEGATIVE (NEGATIVE); UR BILIRUBIN (Dip) NEGATIVE (NEGATIVE); UR BLOOD (Dip) 3+ mg/dL (NEGATIVE); UR BUDDING YEAST FEW /HPF (NONE SEEN); UR CLARITY CLOUDY (CLEAR); UR COLOR COLORLESS (YELLOW); UR GLUCOSE (Dip) NEGATIVE (NEGATIVE); UR HYPHAE YEAST FEW /HPF (NONE SEEN); UR KETONES (Dip) NEGATIVE (NEGATIVE); UR LEUKOCYTE ESTERASE (Dip) 1+ Leu/ul (NEGATIVE); UR NITRITE (Dip) NEGATIVE (NEGATIVE); UR RBC 38 /HPF (0-5); UR SPECIFIC GRAVITY (Dip) 1.005 (1.003-1.030); UR TOTAL PROTEIN (Dip) NEGATIVE (NEGATIVE); UR UROBILINOGEN (Dip) NEGATIVE (NEGATIVE); UR WBC 8 /HPF (0-5)
[2018-10-23 12:49] LABS: OSMOLALITY 306 mOsm/kg (280-295)
[2018-10-23 12:53] LABS: CK INDEX 3.5; CK-MB 7.87 ng/ml (0.0-2.4)
[2018-10-23 12:56] LABS: TROPONIN-I 0.953 ng/ml (0.000-0.120)
[2018-10-23] MEDS: NACL 3% 500 ML IV (13:35)
[2018-10-23] MEDS: MAGNESIUM SULFATE 2 GM/50 ML 50 ML IVPB (14:33)
[2018-10-23] MEDS: DEXTROSE 20% 500 ML IV (15:00)
[2018-10-23] MEDS: POTASSIUM PHOSPHATE 15 MM in SOD CHLORIDE 0.9% 250 ML IVPB (16:06)
[2018-10-23 18:10] LABS: ADD MAN DIFF? NO
[2018-10-23 18:14] LABS: WHITE BLOOD COUNT 12.2 10^3/ul (4.8-10.8)
[2018-10-23 18:14] LABS: ABNORMAL IP MESSAGE 1; BASOPHILS % 0.1 % (0.0-2.0); HEMATOCRIT 20.1 % (37.0-47.0); LYMPHOCYTES # 0.7 10^3/ul (0.8-2.9); MEAN CORPUSCULAR HEMOGLOBIN 29.7 pg (29.0-33.0); MEAN CORPUSCULAR HGB CONC 34.3 g/dl (32.0-37.0); MEAN CORPUSCULAR VOLUME 86.6 fl (82.0-101.0); MONOCYTE # 0.2 10^3/ul (0.3-0.9); MONOCYTES % 1.7 % (0.0-11.0); NEUTROPHIL # 11.2 10^3/ul (1.6-7.5); NEUTROPHILS % 91.1 % (39.0-77.0); NUCLEATED RED BLOOD CELLS # 0.1 10^3/ul (0.0-0.0); NUCLEATED RED BLOOD CELLS% 0.7 /100WBC (0.0-0.0); PLATELET COUNT 111 10^3/UL (140-415); RED BLOOD COUNT 2.32 10^6/ul (4.20-5.40); RED CELL DISTRIBUTION WIDTH 12.6 % (11.5-14.5)
[2018-10-23 18:18] LABS: AADO2 Arterial 128.4 mmHg (7.0-24.0); Arterial Base Excess 3.4 mmol/L (-3.0-3); Arterial Blood Gas Oxygen Sat 97.5 mmHG (95.0-98.0); Arterial COHb 0.3 % (0.0-3.0); Arterial HCO3 28.3 mmol/L (22.0-26.0); Arterial MetHb 0.2 % (0.0-1.5); Arterial pCO2 44.6 mmhg (35-45); MODE VENT - BIPHASIC; POSITIVE DIFF @See below; Site A-Line
[2018-10-23 18:22] LABS: HEMOGLOBIN 6.9 g/dl (12.0-16.0)
[2018-10-23] MEDS: VANCOMYCIN 1 GM (PMX) 250 ML IVPB (18:31)
[2018-10-23 18:33] LABS: PHOSPHORUS 2.5 mg/dl (2.5-4.9)
[2018-10-23 18:33] LABS: AMYLASE 42 U/L (11-123); CREATINE KINASE 206 IU/L (23-200); LACTATE DEHYDROGENASE 1105 IU/L (313-618); LIPASE 20 U/L (23-300); MAGNESIUM 2.6 mg/dl (1.7-2.5)
[2018-10-23 18:34] LABS: LACTIC ACID 1.3 mmol/L (0.5-2.0)
[2018-10-23 18:35] LABS: ALANINE AMINOTRANSFERASE 52 IU/L (13-69); ALBUMIN 3.4 g/dl (3.3-4.9); ALBUMIN/GLOBULIN RATIO 1.13; ALKALINE PHOSPHATASE 79 IU/L (42-121); ANION GAP 8 (5-13); ASPARTATE AMINO TRANSFERASE 57 IU/L (15-46); BILIRUBIN,INDIRECT 0.7 mg/dl (0-1.1); BILIRUBIN,TOTAL 0.7 mg/dl (0.2-1.3); BLOOD UREA NITROGEN 21 mg/dl (7-20); CARBON DIOXIDE 32 mmol/L (21-31); CHLORIDE 106 mmol/L (97-110); CREATININE 0.87 mg/dl (0.44-1.00); Estimated GFR > 60 mL/min (>60); GLUCOSE 215 mg/dl (70-220); INR 1.28; PROTIME 16.1 Sec (11.9-14.9); PT RATIO 1.3; SODIUM 146 mmol/L (135-144); TOTAL PROTEIN 6.4 g/dl (6.1-8.1)
[2018-10-23 18:36] LABS: PARTIAL THROMBOPLASTIN TIME 27.3 Sec (23.0-35.0)
[2018-10-23 18:38] LABS: IONIZED CALCIUM 1.2 mmol/L (1.1-1.4)
[2018-10-23 18:39] LABS: VANCOMYCIN,RANDOM 11.4 ug/ml
[2018-10-23 18:45] LABS: CK INDEX 2.2; CK-MB 4.54 ng/ml (0.0-2.4)
[2018-10-23 18:47] LABS: OSMOLALITY 306 mOsm/kg (280-295)
[2018-10-23 19:00] LABS: TROPONIN-I 0.622 ng/ml (0.000-0.120)
[2018-10-23 19:03] LABS: HEMATOCRIT 20.1 % (37.0-47.0)
[2018-10-23 19:13] LABS: ADD UMIC YES; UR ASCORBIC ACID NEGATIVE (NEGATIVE); UR BILIRUBIN (Dip) NEGATIVE (NEGATIVE); UR BLOOD (Dip) 3+ mg/dL (NEGATIVE); UR CLARITY CLEAR (CLEAR); UR COLOR COLORLESS (YELLOW); UR GLUCOSE (Dip) NEGATIVE (NEGATIVE); UR KETONES (Dip) NEGATIVE (NEGATIVE); UR LEUKOCYTE ESTERASE (Dip) 1+ Leu/ul (NEGATIVE); UR NITRITE (Dip) NEGATIVE (NEGATIVE); UR RBC 1 /HPF (0-5); UR SPECIFIC GRAVITY (Dip) 1.006 (1.003-1.030); UR TOTAL PROTEIN (Dip) NEGATIVE (NEGATIVE); UR UROBILINOGEN (Dip) NEGATIVE (NEGATIVE); UR WBC 23 /HPF (0-5)
[2018-10-23 19:14] LABS: HEMOGLOBIN 6.8 g/dl (12.0-16.0)
[2018-10-24] MEDS: THIAMINE 100 MG in SOD CHLORIDE 0.9% 100 ML IV ×4 (00:18→17:32)
[2018-10-24 00:20] LABS: AADO2 Arterial 141.1 mmHg (7.0-24.0); Arterial Base Excess 2.7 mmol/L (-3.0-3); Arterial Blood Gas Oxygen Sat 96.2 mmHG (95.0-98.0); Arterial COHb 0.3 % (0.0-3.0); Arterial Fraction of Oxyhgb 95.6 % (93.0-99.0); Arterial HCO3 27.8 mmol/L (22.0-26.0); Arterial MetHb 0.3 % (0.0-1.5); Blood Gas Low PEEP Setting 0 cmH2O; MODE VENT - AC; Site A-Line
[2018-10-24] MEDS: LEVOTHYROXINE 200 MCG in SOD CHLORIDE 0.9% 500 ML IV ×2 (00:25→11:11)
[2018-10-24] MEDS: ACCU-CHEK XX ×24 (00:34→22:54)
[2018-10-24 00:37] LABS: ADD MAN DIFF? NO
[2018-10-24 00:39] LABS: ABNORMAL IP MESSAGE 1; BASOPHILS % 0.2 % (0.0-2.0); HEMATOCRIT 24.5 % (37.0-47.0); HEMOGLOBIN 8.3 g/dl (12.0-16.0); LYMPHOCYTES # 0.5 10^3/ul (0.8-2.9); LYMPHOCYTES % 4.4 % (15.0-51.0); MEAN CORPUSCULAR HEMOGLOBIN 29.3 pg (29.0-33.0); MEAN CORPUSCULAR HGB CONC 33.9 g/dl (32.0-37.0); MEAN CORPUSCULAR VOLUME 86.6 fl (82.0-101.0); MEAN PLATELET VOLUME 10.8 fl (7.4-10.4); MONOCYTE # 0.3 10^3/ul (0.3-0.9); MONOCYTES % 2.3 % (0.0-11.0); NEUTROPHIL # 10.7 10^3/ul (1.6-7.5); NEUTROPHILS % 91.9 % (39.0-77.0); NUCLEATED RED BLOOD CELLS # 0.1 10^3/ul (0.0-0.0); PLATELET COUNT 111 10^3/UL (140-415); RED BLOOD COUNT 2.83 10^6/ul (4.20-5.40); RED CELL DISTRIBUTION WIDTH 13.1 % (11.5-14.5)
[2018-10-24 00:39] LABS: WHITE BLOOD COUNT 11.6 10^3/ul (4.8-10.8)
[2018-10-24 00:51] LABS: POSITIVE DIFF @See below
[2018-10-24 00:57] LABS: LACTIC ACID 1.2 mmol/L (0.5-2.0)
[2018-10-24 00:58] LABS: ADD UMIC YES; AMYLASE 47 U/L (11-123); CREATINE KINASE 209 IU/L (23-200); LACTATE DEHYDROGENASE 1268 IU/L (313-618); LIPASE 19 U/L (23-300); MAGNESIUM 2.2 mg/dl (1.7-2.5); UR ASCORBIC ACID NEGATIVE (NEGATIVE); UR BACTERIA FEW /HPF (NONE SEEN); UR BILIRUBIN (Dip) NEGATIVE (NEGATIVE); UR BLOOD (Dip) 2+ mg/dL (NEGATIVE); UR BUDDING YEAST MODERATE /HPF (NONE SEEN); UR CLARITY SLIGHTLY CLOUDY (CLEAR); UR COLOR STRAW (YELLOW); UR GLUCOSE (Dip) NEGATIVE (NEGATIVE); UR KETONES (Dip) NEGATIVE (NEGATIVE); UR LEUKOCYTE ESTERASE (Dip) 1+ Leu/ul (NEGATIVE); UR MUCUS FEW /HPF (NONE SEEN); UR NITRITE (Dip) NEGATIVE (NEGATIVE); UR RBC 91 /HPF (0-5); UR SPECIFIC GRAVITY (Dip) 1.006 (1.003-1.030); UR TOTAL PROTEIN (Dip) NEGATIVE (NEGATIVE); UR UROBILINOGEN (Dip) NEGATIVE (NEGATIVE); UR WBC 22 /HPF (0-5)
[2018-10-24 00:58] LABS: PHOSPHORUS 2.5 mg/dl (2.5-4.9)
[2018-10-24 01:05] LABS: ALANINE AMINOTRANSFERASE 43 IU/L (13-69); ALBUMIN 3.4 g/dl (3.3-4.9); ALBUMIN/GLOBULIN RATIO 1.09; ALKALINE PHOSPHATASE 87 IU/L (42-121); ANION GAP 7 (5-13); ASPARTATE AMINO TRANSFERASE 66 IU/L (15-46); BILIRUBIN,INDIRECT 0.7 mg/dl (0-1.1); BILIRUBIN,TOTAL 0.7 mg/dl (0.2-1.3); BLOOD UREA NITROGEN 20 mg/dl (7-20); CALCIUM 8.9 mg/dl (8.4-10.2); CARBON DIOXIDE 35 mmol/L (21-31); CHLORIDE 107 mmol/L (97-110); CREATININE 0.96 mg/dl (0.44-1.00); Estimated GFR > 60 mL/min (>60); GLUCOSE 158 mg/dl (70-220); POTASSIUM 3.4 mmol/L (3.5-5.1); SODIUM 149 mmol/L (135-144); TOTAL PROTEIN 6.5 g/dl (6.1-8.1)
[2018-10-24 01:06] LABS: BILIRUBIN,INDIRECT 0.7 mg/dl (0-1.1); BILIRUBIN,TOTAL 0.7 mg/dl (0.2-1.3)
[2018-10-24 01:10] LABS: CK INDEX 1.7; CK-MB 3.52 ng/ml (0.0-2.4)
[2018-10-24 01:16] LABS: TROPONIN-I 0.475 ng/ml (0.000-0.120)
[2018-10-24 01:25] LABS: INR 1.24; PROTIME 15.7 Sec (11.9-14.9); PT RATIO 1.2
[2018-10-24 01:26] LABS: PARTIAL THROMBOPLASTIN TIME 29.9 Sec (23.0-35.0)
[2018-10-24] MEDS: POTASSIUM CHLORIDE 50 ML IVPB ×15 (01:55→22:27)
[2018-10-24] MEDS: ARTIFICIAL TEARS 15 ML OPH BOTH EYES ×11 (01:55→21:43)
[2018-10-24] MEDS: ACETAZOLAMIDE 500 MG INJ IV ×4 (01:55→14:52)
[2018-10-24] MEDS: DOBUTamine/D5W 2 MG/ML DRIP 250 ML IV (02:00)
[2018-10-24] MEDS: ALBUMIN HUMAN 25% 100 ML IV ×3 (02:29→20:36)
[2018-10-24 03:09] LABS: IONIZED CALCIUM 1.2 mmol/L (1.1-1.4)
[2018-10-24 03:09] LABS: OSMOLALITY 306 mOsm/kg (280-295)
[2018-10-24] MEDS: FUROSEMIDE 40 MG INJ IV ×3 (03:18→17:32)
[2018-10-24] MEDS: PIPER-TAZO 3.375 GM IV (PMX) 100 ML IVPB ×3 (05:32→21:45)
[2018-10-24] MEDS: METHYLPRED. NA SUCC 500 MG in SOD CHLORIDE 0.9% 100 ML IVPB ×3 (05:33→21:48)
[2018-10-24 06:04] LABS: AADO2 Arterial 106.1 mmHg (7.0-24.0); Arterial Base Excess 7.3 mmol/L (-3.0-3); Arterial COHb 0.3 % (0.0-3.0); Arterial Fraction of Oxyhgb 97.4 % (93.0-99.0); Arterial HCO3 31.4 mmol/L (22.0-26.0); Arterial MetHb 0.3 % (0.0-1.5); Arterial pCO2 42.3 mmhg (35-45); Blood Gas Low PEEP Setting 0 cmH2O; MODE VENT - BIPHASIC; Site A-Line
[2018-10-24 06:07] LABS: HEMATOCRIT 24.7 % (37.0-47.0); HEMOGLOBIN 8.2 g/dl (12.0-16.0); MEAN CORPUSCULAR HEMOGLOBIN 29.1 pg (29.0-33.0); MEAN CORPUSCULAR HGB CONC 33.2 g/dl (32.0-37.0); MEAN CORPUSCULAR VOLUME 87.6 fl (82.0-101.0); NUCLEATED RED BLOOD CELLS% 0.9 /100WBC (0.0-0.0); PLATELET COUNT 101 10^3/UL (140-415); RED BLOOD COUNT 2.82 10^6/ul (4.20-5.40); RED CELL DISTRIBUTION WIDTH 13.5 % (11.5-14.5)
[2018-10-24 06:07] LABS: WHITE BLOOD COUNT 11.9 10^3/ul (4.8-10.8)
[2018-10-24 06:12] LABS: POSITIVE DIFF @See below
[2018-10-24 06:13] LABS: ADD MAN DIFF? YES
[2018-10-24 06:25] LABS: AMYLASE 53 U/L (11-123); CREATINE KINASE 168 IU/L (23-200); LACTATE DEHYDROGENASE 1369 IU/L (313-618); LIPASE 25 U/L (23-300)
[2018-10-24 06:25] LABS: PHOSPHORUS 2.4 mg/dl (2.5-4.9)
[2018-10-24 06:26] LABS: LACTIC ACID 1.2 mmol/L (0.5-2.0)
[2018-10-24 06:29] LABS: INR 1.24; PARTIAL THROMBOPLASTIN TIME 26.9 Sec (23.0-35.0); PROTIME 15.7 Sec (11.9-14.9); PT RATIO 1.2
[2018-10-24 06:33] LABS: BILIRUBIN,INDIRECT 0.6 mg/dl (0-1.1); BILIRUBIN,TOTAL 0.6 mg/dl (0.2-1.3)
[2018-10-24 06:35] LABS: ALANINE AMINOTRANSFERASE 45 IU/L (13-69); ALBUMIN/GLOBULIN RATIO 1.33; ALKALINE PHOSPHATASE 79 IU/L (42-121); ANION GAP 7 (5-13); ASPARTATE AMINO TRANSFERASE 71 IU/L (15-46); BILIRUBIN,INDIRECT 0.6 mg/dl (0-1.1); BILIRUBIN,TOTAL 0.6 mg/dl (0.2-1.3); BLOOD UREA NITROGEN 20 mg/dl (7-20); CALCIUM 9.5 mg/dl (8.4-10.2); CARBON DIOXIDE 37 mmol/L (21-31); CHLORIDE 105 mmol/L (97-110); CREATININE 1.13 mg/dl (0.44-1.00); Estimated GFR 53 mL/min (>60); GLUCOSE 112 mg/dl (70-220); POTASSIUM 3.7 mmol/L (3.5-5.1); SODIUM 149 mmol/L (135-144)
[2018-10-24 06:37] LABS: CK INDEX 1.6; CK-MB 2.66 ng/ml (0.0-2.4)
[2018-10-24 06:52] LABS: TROPONIN-I 0.334 ng/ml (0.000-0.120)
[2018-10-24 07:03] LABS: IONIZED CALCIUM 1.2 mmol/L (1.1-1.4)
[2018-10-24 07:09] LABS: VANCOMYCIN,TROUGH 19.1 ug/ml (10.0-20.0)
[2018-10-24] MEDS: INSULIN HUMAN REGULAR 100 UNIT in SOD CHLORIDE 0.9% 99 ML IV (07:19)
[2018-10-24] MEDS: VANCOMYCIN 1 GM (PMX) 250 ML IVPB ×2 (07:23→19:15)
[2018-10-24] MEDS: VASOPRESSIN 60 UNIT in SOD CHLORIDE 0.9% 57 ML IV ×2 (07:26→19:21)
[2018-10-24 07:52] LABS: OSMOLALITY 307 mOsm/kg (280-295)
[2018-10-24] MEDS: CEFTRIAXONE 1 GM/50 ML (PMX) 50 ML IVPB ×2 (08:25→21:08)
[2018-10-24 08:41] LABS: ANISOCYTOSIS 1+ (0-0); BAND NEUTROPHILS #M 1.4 10^3/ul (0.0-0.6); BAND NEUTROPHILS % (M) 12 % (0-4); LYMPHOCYTES #M 0.2 10^3/ul (0.8-2.9); LYMPHOCYTES % (M) 2 % (15-51); MONOCYTE #M 0.9 10^3/ul (0.3-0.9); MONOCYTES % (M) 8 % (0-11); PLATELET ESTIMATE DECREASED; POIKILOCYTOSIS 1+ (0-0); POLYCHROMASIA 1+ (0-0); SEG NEUT #M 9.4 10^3/ul (1.6-7.5); SEGMENTED NEUTROPHILS (M) % 78 % (39-77); SMUDGE%M 8 % (0-0)
[2018-10-24 10:12] LABS: ADD UMIC YES; UR ASCORBIC ACID NEGATIVE (NEGATIVE); UR BILIRUBIN (Dip) NEGATIVE (NEGATIVE); UR BLOOD (Dip) 2+ mg/dL (NEGATIVE); UR BUDDING YEAST FEW /HPF (NONE SEEN); UR CLARITY CLEAR (CLEAR); UR COLOR STRAW (YELLOW); UR GLUCOSE (Dip) NEGATIVE (NEGATIVE); UR KETONES (Dip) NEGATIVE (NEGATIVE); UR LEUKOCYTE ESTERASE (Dip) NEGATIVE Leu/ul (NEGATIVE); UR NITRITE (Dip) NEGATIVE (NEGATIVE); UR RBC 4 /HPF (0-5); UR SPECIFIC GRAVITY (Dip) 1.006 (1.003-1.030); UR TOTAL PROTEIN (Dip) NEGATIVE (NEGATIVE); UR UROBILINOGEN (Dip) NEGATIVE (NEGATIVE); UR WBC 7 /HPF (0-5)
[2018-10-24] MEDS: DEXTROSE 50% IV ×2 (11:00→13:04)
[2018-10-24] MEDS: POTASSIUM CHLORIDE IV ×2 (11:00→13:04)
[2018-10-24] MEDS: INSULIN HUMAN REGULAR IV ×2 (11:00→13:04)
[2018-10-24 12:18] LABS: ADD MAN DIFF? NO
[2018-10-24 12:21] LABS: ABNORMAL IP MESSAGE 1; BASOPHILS % 0.2 % (0.0-2.0); HEMOGLOBIN 7.9 g/dl (12.0-16.0); LYMPHOCYTES # 0.5 10^3/ul (0.8-2.9); LYMPHOCYTES % 4.6 % (15.0-51.0); MEAN CORPUSCULAR HEMOGLOBIN 29.3 pg (29.0-33.0); MEAN CORPUSCULAR HGB CONC 32.9 g/dl (32.0-37.0); MEAN CORPUSCULAR VOLUME 88.9 fl (82.0-101.0); MEAN PLATELET VOLUME 11.4 fl (7.4-10.4); MONOCYTE # 0.3 10^3/ul (0.3-0.9); MONOCYTES % 2.5 % (0.0-11.0); NUCLEATED RED BLOOD CELLS # 0.1 10^3/ul (0.0-0.0); NUCLEATED RED BLOOD CELLS% 0.5 /100WBC (0.0-0.0); PLATELET COUNT 99 10^3/UL (140-415)
[2018-10-24 12:21] LABS: WHITE BLOOD COUNT 9.9 10^3/ul (4.8-10.8)
[2018-10-24 12:23] LABS: POSITIVE DIFF @See below
[2018-10-24 12:24] LABS: AADO2 Arterial 102.1 mmHg (7.0-24.0); Arterial Blood Gas Oxygen Sat 97.9 mmHG (95.0-98.0); Arterial COHb 0.3 % (0.0-3.0); Arterial Fraction of Oxyhgb 97.4 % (93.0-99.0); Arterial HCO3 33.6 mmol/L (22.0-26.0); Arterial MetHb 0.2 % (0.0-1.5); Arterial pCO2 52.1 mmhg (35-45); Blood Gas Low PEEP Setting 0 cmH2O; MODE VENT - BIPHASIC; Site A-Line
[2018-10-24 12:38] LABS: LACTIC ACID 1.2 mmol/L (0.5-2.0)
[2018-10-24 12:42] LABS: IONIZED CALCIUM 1.3 mmol/L (1.1-1.4)
[2018-10-24 12:43] LABS: INR 1.26; PROTIME 15.9 Sec (11.9-14.9); PT RATIO 1.2
[2018-10-24 12:44] LABS: PARTIAL THROMBOPLASTIN TIME 26.1 Sec (23.0-35.0)
[2018-10-24 12:45] LABS: AMYLASE 61 U/L (11-123); CREATINE KINASE 152 IU/L (23-200); LACTATE DEHYDROGENASE 1454 IU/L (313-618); LIPASE 30 U/L (23-300); MAGNESIUM 2.2 mg/dl (1.7-2.5)
[2018-10-24 12:45] LABS: PHOSPHORUS 2.6 mg/dl (2.5-4.9)
[2018-10-24 12:47] LABS: ALANINE AMINOTRANSFERASE 40 IU/L (13-69); ALBUMIN 4.5 g/dl (3.3-4.9); ALKALINE PHOSPHATASE 80 IU/L (42-121); ANION GAP 11 (5-13); ASPARTATE AMINO TRANSFERASE 77 IU/L (15-46); BILIRUBIN,INDIRECT 0.6 mg/dl (0-1.1); BILIRUBIN,TOTAL 0.6 mg/dl (0.2-1.3); BLOOD UREA NITROGEN 24 mg/dl (7-20); CARBON DIOXIDE 37 mmol/L (21-31); CHLORIDE 104 mmol/L (97-110); CREATININE 1.22 mg/dl (0.44-1.00); Estimated GFR 49 mL/min (>60); GLUCOSE 113 mg/dl (70-220); POTASSIUM 3.6 mmol/L (3.5-5.1); SODIUM 152 mmol/L (135-144); TOTAL PROTEIN 7.5 g/dl (6.1-8.1)
[2018-10-24 12:51] LABS: OSMOLALITY 310 mOsm/kg (280-295)
[2018-10-24 12:58] LABS: CK INDEX 1.2; CK-MB 1.87 ng/ml (0.0-2.4); TROPONIN-I 0.278 ng/ml (0.000-0.120)
[2018-10-24 13:28] LABS: ADD UMIC YES; UR ASCORBIC ACID NEGATIVE (NEGATIVE); UR BILIRUBIN (Dip) NEGATIVE (NEGATIVE); UR BLOOD (Dip) 2+ mg/dL (NEGATIVE); UR BUDDING YEAST FEW /HPF (NONE SEEN); UR CLARITY CLEAR (CLEAR); UR COLOR STRAW (YELLOW); UR GLUCOSE (Dip) NEGATIVE (NEGATIVE); UR HYPHAE YEAST FEW /HPF (NONE SEEN); UR KETONES (Dip) NEGATIVE (NEGATIVE); UR LEUKOCYTE ESTERASE (Dip) TRACE Leu/ul (NEGATIVE); UR NITRITE (Dip) NEGATIVE (NEGATIVE); UR RBC 0 /HPF (0-5); UR RENAL EPITHELIAL CELL FEW /HPF (NONE SEEN); UR SPECIFIC GRAVITY (Dip) 1.008 (1.003-1.030); UR TOTAL PROTEIN (Dip) NEGATIVE (NEGATIVE); UR UROBILINOGEN (Dip) NEGATIVE (NEGATIVE); UR WBC 17 /HPF (0-5)
[2018-10-24] MEDS: DEXTROSE 20% 500 ML IV (14:47)
[2018-10-24 18:30] LABS: ABNORMAL IP MESSAGE 1; ADD MAN DIFF? NO; BASOPHILS % 0.1 % (0.0-2.0); HEMATOCRIT 25.4 % (37.0-47.0); HEMOGLOBIN 8.2 g/dl (12.0-16.0); LYMPHOCYTES # 0.5 10^3/ul (0.8-2.9); LYMPHOCYTES % 4.8 % (15.0-51.0); MEAN CORPUSCULAR HEMOGLOBIN 29.1 pg (29.0-33.0); MEAN CORPUSCULAR HGB CONC 32.3 g/dl (32.0-37.0); MEAN CORPUSCULAR VOLUME 90.1 fl (82.0-101.0); MEAN PLATELET VOLUME 11.3 fl (7.4-10.4); MONOCYTE # 0.3 10^3/ul (0.3-0.9); NEUTROPHIL # 9.1 10^3/ul (1.6-7.5); NEUTROPHILS % 90.8 % (39.0-77.0); NUCLEATED RED BLOOD CELLS # 0.1 10^3/ul (0.0-0.0); NUCLEATED RED BLOOD CELLS% 0.7 /100WBC (0.0-0.0); PLATELET COUNT 101 10^3/UL (140-415); RED BLOOD COUNT 2.82 10^6/ul (4.20-5.40); RED CELL DISTRIBUTION WIDTH 14.2 % (11.5-14.5)
[2018-10-24 18:33] LABS: POSITIVE DIFF @See below
[2018-10-24 18:36] LABS: AADO2 Arterial 87.9 mmHg (7.0-24.0); Arterial Base Excess 4.6 mmol/L (-3.0-3); Arterial Blood Gas Oxygen Sat 98.6 mmHG (95.0-98.0); Arterial COHb 0.2 % (0.0-3.0); Arterial Fraction of Oxyhgb 98.1 % (93.0-99.0); Arterial HCO3 29.9 mmol/L (22.0-26.0); Arterial MetHb 0.3 % (0.0-1.5); Arterial pCO2 47.9 mmhg (35-45); Blood Gas Low PEEP Setting 0 cmH2O; MODE VENT - BIPHASIC; Site A-Line
[2018-10-24 18:46] LABS: IONIZED CALCIUM 1.3 mmol/L (1.1-1.4)
[2018-10-24 18:48] LABS: LACTIC ACID 2.6 mmol/L (0.5-2.0); PHOSPHORUS 3.4 mg/dl (2.5-4.9)
[2018-10-24 18:48] LABS: AMYLASE 65 U/L (11-123); CREATINE KINASE 165 IU/L (23-200); LACTATE DEHYDROGENASE 1610 IU/L (313-618); LIPASE 38 U/L (23-300); MAGNESIUM 2.2 mg/dl (1.7-2.5)
[2018-10-24 18:49] LABS: ALANINE AMINOTRANSFERASE 40 IU/L (13-69); ALBUMIN 4.3 g/dl (3.3-4.9); ALBUMIN/GLOBULIN RATIO 1.43; ALKALINE PHOSPHATASE 88 IU/L (42-121); ANION GAP 13 (5-13); ASPARTATE AMINO TRANSFERASE 92 IU/L (15-46); BILIRUBIN,INDIRECT 0.8 mg/dl (0-1.1); BILIRUBIN,TOTAL 0.8 mg/dl (0.2-1.3); BLOOD UREA NITROGEN 30 mg/dl (7-20); CALCIUM 9.8 mg/dl (8.4-10.2); CARBON DIOXIDE 34 mmol/L (21-31); CHLORIDE 105 mmol/L (97-110); CREATININE 1.19 mg/dl (0.44-1.00); Estimated GFR 50 mL/min (>60); GLUCOSE 149 mg/dl (70-220); POTASSIUM 3.6 mmol/L (3.5-5.1); SODIUM 152 mmol/L (135-144); TOTAL PROTEIN 7.3 g/dl (6.1-8.1)
[2018-10-24 18:50] LABS: PROTIME 16.3 Sec (11.9-14.9); PT RATIO 1.3
[2018-10-24 18:51] LABS: BILIRUBIN,INDIRECT 0.8 mg/dl (0-1.1); BILIRUBIN,TOTAL 0.8 mg/dl (0.2-1.3); PARTIAL THROMBOPLASTIN TIME 26.2 Sec (23.0-35.0)
[2018-10-24 18:56] LABS: VANCOMYCIN,RANDOM 9.8 ug/ml
[2018-10-24 19:00] LABS: CK INDEX 1.3; CK-MB 2.07 ng/ml (0.0-2.4)
[2018-10-24 19:13] LABS: ADD UMIC YES; UR ASCORBIC ACID NEGATIVE (NEGATIVE); UR BILIRUBIN (Dip) NEGATIVE (NEGATIVE); UR BLOOD (Dip) 2+ mg/dL (NEGATIVE); UR BUDDING YEAST FEW /HPF (NONE SEEN); UR CLARITY CLEAR (CLEAR); UR COLOR YELLOW (YELLOW); UR GLUCOSE (Dip) NEGATIVE (NEGATIVE); UR KETONES (Dip) NEGATIVE (NEGATIVE); UR LEUKOCYTE ESTERASE (Dip) TRACE Leu/ul (NEGATIVE); UR NITRITE (Dip) NEGATIVE (NEGATIVE); UR RBC 17 /HPF (0-5); UR SPECIFIC GRAVITY (Dip) 1.014 (1.003-1.030); UR TOTAL PROTEIN (Dip) 1+ mg/dl (NEGATIVE); UR UROBILINOGEN (Dip) NEGATIVE (NEGATIVE); UR WBC 34 /HPF (0-5)
[2018-10-24 19:40] LABS: OSMOLALITY 316 mOsm/kg (280-295)
[2018-10-24 23:41] LABS: AADO2 Arterial 27.2 mmHg (7.0-24.0); Arterial Base Excess 1.6 mmol/L (-3.0-3); Arterial Blood Gas Oxygen Sat 98.8 mmHG (95.0-98.0); Arterial COHb 0.3 % (0.0-3.0); Arterial Fraction of Oxyhgb 97.9 % (93.0-99.0); Arterial HCO3 27.2 mmol/L (22.0-26.0); Arterial MetHb 0.6 % (0.0-1.5); Arterial pCO2 48.1 mmhg (35-45); Blood Gas Low PEEP Setting 0 cmH2O; MODE VENT - BIPHASIC; Site A-Line
[2018-10-25 00:47] LABS: ADD MAN DIFF? NO
[2018-10-25 00:49] LABS: WHITE BLOOD COUNT 9.4 10^3/ul (4.8-10.8)
[2018-10-25 00:49] LABS: ABNORMAL IP MESSAGE 1; BASOPHILS % 0.1 % (0.0-2.0); HEMATOCRIT 23.3 % (37.0-47.0); HEMOGLOBIN 7.6 g/dl (12.0-16.0); LYMPHOCYTES # 0.4 10^3/ul (0.8-2.9); LYMPHOCYTES % 4.6 % (15.0-51.0); MEAN CORPUSCULAR HEMOGLOBIN 29.9 pg (29.0-33.0); MEAN CORPUSCULAR HGB CONC 32.6 g/dl (32.0-37.0); MEAN CORPUSCULAR VOLUME 91.7 fl (82.0-101.0); MEAN PLATELET VOLUME 11.4 fl (7.4-10.4); MONOCYTE # 0.4 10^3/ul (0.3-0.9); MONOCYTES % 3.8 % (0.0-11.0); NEUTROPHIL # 8.5 10^3/ul (1.6-7.5); NEUTROPHILS % 89.8 % (39.0-77.0); NUCLEATED RED BLOOD CELLS% 0.4 /100WBC (0.0-0.0); PLATELET COUNT 88 10^3/UL (140-415); RED BLOOD COUNT 2.54 10^6/ul (4.20-5.40); RED CELL DISTRIBUTION WIDTH 14.5 % (11.5-14.5)
[2018-10-25] MEDS: ARTIFICIAL TEARS 15 ML OPH BOTH EYES ×10 (00:51→22:06)
[2018-10-25] MEDS: ACCU-CHEK XX ×23 (00:51→22:00)
[2018-10-25 00:53] LABS: POSITIVE DIFF @See below
[2018-10-25] MEDS: THIAMINE 100 MG in SOD CHLORIDE 0.9% 100 ML IV ×4 (00:53→18:25)
[2018-10-25 01:09] LABS: LACTIC ACID 1.7 mmol/L (0.5-2.0); PHOSPHORUS 4.3 mg/dl (2.5-4.9)
[2018-10-25 01:09] LABS: AMYLASE 55 U/L (11-123); CREATINE KINASE 142 IU/L (23-200); INR 1.27; LACTATE DEHYDROGENASE 1733 IU/L (313-618); LIPASE 50 U/L (23-300); MAGNESIUM 2.4 mg/dl (1.7-2.5); PARTIAL THROMBOPLASTIN TIME 26.2 Sec (23.0-35.0); PT RATIO 1.3
[2018-10-25 01:12] LABS: ALANINE AMINOTRANSFERASE 37 IU/L (13-69); ALBUMIN 4.4 g/dl (3.3-4.9); ALBUMIN/GLOBULIN RATIO 1.46; ALKALINE PHOSPHATASE 75 IU/L (42-121); ANION GAP 12 (5-13); ASPARTATE AMINO TRANSFERASE 85 IU/L (15-46); BILIRUBIN,INDIRECT 0.5 mg/dl (0-1.1); BILIRUBIN,TOTAL 0.5 mg/dl (0.2-1.3); BLOOD UREA NITROGEN 38 mg/dl (7-20); CALCIUM 9.7 mg/dl (8.4-10.2); CARBON DIOXIDE 33 mmol/L (21-31); CHLORIDE 108 mmol/L (97-110); CREATININE 1.31 mg/dl (0.44-1.00); Estimated GFR 45 mL/min (>60); GLUCOSE 137 mg/dl (70-220); POTASSIUM 3.9 mmol/L (3.5-5.1); SODIUM 153 mmol/L (135-144); TOTAL PROTEIN 7.4 g/dl (6.1-8.1)
[2018-10-25 01:16] LABS: ADD UMIC YES; UR ASCORBIC ACID NEGATIVE (NEGATIVE); UR BILIRUBIN (Dip) NEGATIVE (NEGATIVE); UR BLOOD (Dip) 2+ mg/dL (NEGATIVE); UR BUDDING YEAST MODERATE /HPF (NONE SEEN); UR CLARITY SLIGHTLY CLOUDY (CLEAR); UR COLOR YELLOW (YELLOW); UR GLUCOSE (Dip) NEGATIVE (NEGATIVE); UR KETONES (Dip) NEGATIVE (NEGATIVE); UR LEUKOCYTE ESTERASE (Dip) 1+ Leu/ul (NEGATIVE); UR MUCUS FEW /HPF (NONE SEEN); UR NITRITE (Dip) NEGATIVE (NEGATIVE); UR RBC 26 /HPF (0-5); UR SPECIFIC GRAVITY (Dip) 1.015 (1.003-1.030); UR TOTAL PROTEIN (Dip) 1+ mg/dl (NEGATIVE); UR TRANSITIONAL EPI CELL FEW /HPF (NONE SEEN); UR UROBILINOGEN (Dip) NEGATIVE (NEGATIVE); UR WBC 31 /HPF (0-5)
[2018-10-25 01:22] LABS: CK INDEX 1.4; CK-MB 1.96 ng/ml (0.0-2.4)
[2018-10-25 01:23] LABS: TROPONIN-I 0.246 ng/ml (0.000-0.120)
[2018-10-25 01:56] LABS: IONIZED CALCIUM 1.3 mmol/L (1.1-1.4)
[2018-10-25 02:04] LABS: OSMOLALITY 324 mOsm/kg (280-295)
[2018-10-25] MEDS: INSULIN HUMAN REGULAR 100 UNIT in SOD CHLORIDE 0.9% 99 ML IV (04:15)
[2018-10-25] MEDS: FUROSEMIDE 40 MG INJ IV ×2 (05:00→17:00)
[2018-10-25] MEDS: METHYLPRED. NA SUCC 500 MG in SOD CHLORIDE 0.9% 100 ML IVPB ×3 (05:00→22:06)
[2018-10-25] MEDS: VANCOMYCIN 1 GM (PMX) 250 ML IVPB ×2 (05:01→18:26)
[2018-10-25] MEDS: PIPER-TAZO 3.375 GM IV (PMX) 100 ML IVPB ×3 (05:01→22:06)
[2018-10-25 05:50] LABS: AADO2 Arterial 78.3 mmHg (7.0-24.0); Arterial Base Excess 1.4 mmol/L (-3.0-3); Arterial Blood Gas Oxygen Sat 98.5 mmHG (95.0-98.0); Arterial COHb 0.2 % (0.0-3.0); Arterial Fraction of Oxyhgb 97.8 % (93.0-99.0); Arterial HCO3 27.2 mmol/L (22.0-26.0); Arterial MetHb 0.5 % (0.0-1.5); Arterial pCO2 49.6 mmhg (35-45); Blood Gas Low PEEP Setting 0 cmH2O; MODE VENT - BIPHASIC; Site A-Line
[2018-10-25 06:11] LABS: ADD MAN DIFF? NO
[2018-10-25] MEDS: ALBUMIN HUMAN 25% 100 ML IV ×2 (06:14→16:50)
[2018-10-25 06:17] LABS: ABNORMAL IP MESSAGE 1; BASOPHILS % 0.1 % (0.0-2.0); HEMATOCRIT 23.9 % (37.0-47.0); HEMOGLOBIN 7.7 g/dl (12.0-16.0); LYMPHOCYTES # 0.5 10^3/ul (0.8-2.9); LYMPHOCYTES % 4.6 % (15.0-51.0); MEAN CORPUSCULAR HEMOGLOBIN 29.7 pg (29.0-33.0); MEAN CORPUSCULAR HGB CONC 32.2 g/dl (32.0-37.0); MEAN CORPUSCULAR VOLUME 92.3 fl (82.0-101.0); MEAN PLATELET VOLUME 10.9 fl (7.4-10.4); MONOCYTE # 0.3 10^3/ul (0.3-0.9); MONOCYTES % 3.2 % (0.0-11.0); NEUTROPHILS % 90.8 % (39.0-77.0); NUCLEATED RED BLOOD CELLS # 0.1 10^3/ul (0.0-0.0); NUCLEATED RED BLOOD CELLS% 0.5 /100WBC (0.0-0.0); PLATELET COUNT 91 10^3/UL (140-415); POSITIVE DIFF @See below; RED BLOOD COUNT 2.59 10^6/ul (4.20-5.40); RED CELL DISTRIBUTION WIDTH 14.6 % (11.5-14.5)
[2018-10-25 06:17] LABS: WHITE BLOOD COUNT 9.9 10^3/ul (4.8-10.8)
[2018-10-25] MEDS: DOBUTamine/D5W 2 MG/ML DRIP 250 ML IV (06:17)
[2018-10-25] MEDS: VASOPRESSIN 60 UNIT in SOD CHLORIDE 0.9% 57 ML IV ×2 (06:19→19:30)
[2018-10-25 06:30] LABS: PROTIME 16.3 Sec (11.9-14.9); PT RATIO 1.3
[2018-10-25 06:31] LABS: PARTIAL THROMBOPLASTIN TIME 26.4 Sec (23.0-35.0)
[2018-10-25 06:38] LABS: LACTIC ACID 1.4 mmol/L (0.5-2.0)
[2018-10-25 06:46] LABS: PHOSPHORUS 4.5 mg/dl (2.5-4.9)
[2018-10-25 06:46] LABS: AMYLASE 74 U/L (11-123); CREATINE KINASE 155 IU/L (23-200); LACTATE DEHYDROGENASE 1793 IU/L (313-618); LIPASE 65 U/L (23-300); MAGNESIUM 2.2 mg/dl (1.7-2.5)
[2018-10-25 06:51] LABS: ALANINE AMINOTRANSFERASE 42 IU/L (13-69); ALBUMIN 4.1 g/dl (3.3-4.9); ALBUMIN/GLOBULIN RATIO 1.41; ALKALINE PHOSPHATASE 85 IU/L (42-121); ANION GAP 13 (5-13); ASPARTATE AMINO TRANSFERASE 87 IU/L (15-46); BILIRUBIN,INDIRECT 0.7 mg/dl (0-1.1); BILIRUBIN,TOTAL 0.7 mg/dl (0.2-1.3); BLOOD UREA NITROGEN 41 mg/dl (7-20); CALCIUM 9.4 mg/dl (8.4-10.2); CARBON DIOXIDE 30 mmol/L (21-31); CHLORIDE 107 mmol/L (97-110); CREATININE 1.25 mg/dl (0.44-1.00); Estimated GFR 47 mL/min (>60); GLUCOSE 187 mg/dl (70-220); SODIUM 150 mmol/L (135-144)
[2018-10-25 06:54] LABS: BILIRUBIN,INDIRECT 0.7 mg/dl (0-1.1); BILIRUBIN,TOTAL 0.7 mg/dl (0.2-1.3); POTASSIUM 2.8 mmol/L (3.5-5.1)
[2018-10-25 06:56] LABS: OSMOLALITY 314 mOsm/kg (280-295)
[2018-10-25 06:57] LABS: ADD UMIC YES; UR ASCORBIC ACID NEGATIVE (NEGATIVE); UR BILIRUBIN (Dip) NEGATIVE (NEGATIVE); UR BLOOD (Dip) 3+ mg/dL (NEGATIVE); UR BUDDING YEAST FEW /HPF (NONE SEEN); UR CLARITY CLEAR (CLEAR); UR COLOR RED (YELLOW); UR GLUCOSE (Dip) NEGATIVE (NEGATIVE); UR KETONES (Dip) NEGATIVE (NEGATIVE); UR LEUKOCYTE ESTERASE (Dip) NEGATIVE Leu/ul (NEGATIVE); UR MUCUS FEW /HPF (NONE SEEN); UR NITRITE (Dip) NEGATIVE (NEGATIVE); UR RBC 0 /HPF (0-5); UR SPECIFIC GRAVITY (Dip) 1.008 (1.003-1.030); UR TOTAL PROTEIN (Dip) NEGATIVE (NEGATIVE); UR UROBILINOGEN (Dip) NEGATIVE (NEGATIVE); UR WBC 3 /HPF (0-5)
[2018-10-25 06:58] LABS: CK INDEX 1.3; CK-MB 2.07 ng/ml (0.0-2.4)
[2018-10-25 07:00] LABS: IONIZED CALCIUM 1.3 mmol/L (1.1-1.4)
[2018-10-25 07:08] LABS: TROPONIN-I 0.218 ng/ml (0.000-0.120)
[2018-10-25] MEDS: POTASSIUM CHLORIDE 50 ML IVPB (07:30)
[2018-10-25] MEDS: LEVOTHYROXINE 200 MCG in SOD CHLORIDE 0.9% 500 ML IV (08:56)
[2018-10-25] MEDS: DEXTROSE 50% IV (08:57)
[2018-10-25] MEDS: INSULIN HUMAN REGULAR IV (08:57)
[2018-10-25] MEDS: POTASSIUM CHLORIDE IV (08:57)
[2018-10-25] MEDS: CEFTRIAXONE 1 GM/50 ML (PMX) 50 ML IVPB ×2 (09:12→20:55)
[2018-10-25] MEDS: POTASSIUM CHLORIDE 100 ML IVPB ×6 (09:35→22:44)
[2018-10-25] MEDS ORDERED: HEPARIN 1000 UNITS/ML 10 ML INJ (10:33)
[2018-10-25] MEDS ORDERED: HEPARIN 1000 UNITS/NS (A-LINE) 1,000 ML (10:33)
[2018-10-25] MEDS: HOLD all METFORMIN and METFORMIN CONTAINING medications for 48 hours post procedure. Chec XX (12:30)
[2018-10-25] MEDS ORDERED: LIDOCAINE 1% (MDV) 20 ML INJ (12:51)
[2018-10-25] MEDS ORDERED: IODIXANOL LOCM 100 ML BTL (12:51)
[2018-10-25 14:11] LABS: Allen Test ACCEPTAB; Arterial Base Excess -0.3 mmol/L (-3.0-3); Arterial Blood Gas Oxygen Sat 99.2 mmHG (95.0-98.0); Arterial COHb 0.3 % (0.0-3.0); Arterial Fraction of Oxyhgb 98.4 % (93.0-99.0); Arterial HCO3 24.4 mmol/L (22.0-26.0); Arterial MetHb 0.5 % (0.0-1.5); MODE VENT - BIPHASIC; Site Right Radial
[2018-10-25 14:17] LABS: ADD MAN DIFF? NO
[2018-10-25 14:19] LABS: BASOPHILS % 0.2 % (0.0-2.0); HEMATOCRIT 21.9 % (37.0-47.0); HEMOGLOBIN 7.2 g/dl (12.0-16.0); LYMPHOCYTES # 0.6 10^3/ul (0.8-2.9); LYMPHOCYTES % 5.3 % (15.0-51.0); MEAN CORPUSCULAR HEMOGLOBIN 29.8 pg (29.0-33.0); MEAN CORPUSCULAR HGB CONC 32.9 g/dl (32.0-37.0); MEAN CORPUSCULAR VOLUME 90.5 fl (82.0-101.0); MEAN PLATELET VOLUME 11.4 fl (7.4-10.4); MONOCYTE # 0.4 10^3/ul (0.3-0.9); MONOCYTES % 3.1 % (0.0-11.0); NEUTROPHIL # 10.6 10^3/ul (1.6-7.5); NEUTROPHILS % 89.2 % (39.0-77.0); NUCLEATED RED BLOOD CELLS # 0.1 10^3/ul (0.0-0.0); NUCLEATED RED BLOOD CELLS% 0.8 /100WBC (0.0-0.0); PLATELET COUNT 104 10^3/UL (140-415); RED BLOOD COUNT 2.42 10^6/ul (4.20-5.40); RED CELL DISTRIBUTION WIDTH 14.1 % (11.5-14.5)
[2018-10-25 14:19] LABS: WHITE BLOOD COUNT 11.9 10^3/ul (4.8-10.8)
[2018-10-25 14:33] LABS: IONIZED CALCIUM 1.2 mmol/L (1.1-1.4)
[2018-10-25 14:38] LABS: AMYLASE 59 U/L (11-123); CREATINE KINASE 167 IU/L (23-200); LACTATE DEHYDROGENASE 1976 IU/L (313-618); LIPASE 77 U/L (23-300); MAGNESIUM 2.1 mg/dl (1.7-2.5)
[2018-10-25 14:39] LABS: ALANINE AMINOTRANSFERASE 46 IU/L (13-69); ALBUMIN 4.4 g/dl (3.3-4.9); ALBUMIN/GLOBULIN RATIO 1.69; ALKALINE PHOSPHATASE 77 IU/L (42-121); ANION GAP 13 (5-13); ASPARTATE AMINO TRANSFERASE 88 IU/L (15-46); BILIRUBIN,INDIRECT 0.8 mg/dl (0-1.1); BILIRUBIN,TOTAL 0.8 mg/dl (0.2-1.3); BLOOD UREA NITROGEN 40 mg/dl (7-20); CALCIUM 9.5 mg/dl (8.4-10.2); CARBON DIOXIDE 30 mmol/L (21-31); CHLORIDE 99 mmol/L (97-110); CREATININE 1.15 mg/dl (0.44-1.00); Estimated GFR 52 mL/min (>60); GLUCOSE 144 mg/dl (70-220); POTASSIUM 3.7 mmol/L (3.5-5.1); SODIUM 142 mmol/L (135-144)
[2018-10-25 14:40] LABS: INR 1.29; PARTIAL THROMBOPLASTIN TIME 25.9 Sec (23.0-35.0); PROTIME 16.2 Sec (11.9-14.9); PT RATIO 1.3
[2018-10-25 14:41] LABS: OSMOLALITY 301 mOsm/kg (280-295)
[2018-10-25 14:49] LABS: CK INDEX 1.4
[2018-10-25 14:50] LABS: AADO2 Arterial 77.5 mmHg (7.0-24.0); Allen Test ACCEPTAB; Arterial Base Excess 0.5 mmol/L (-3.0-3); Arterial COHb 0.8 % (0.0-3.0); Arterial Fraction of Oxyhgb 97.8 % (93.0-99.0); Arterial HCO3 25.6 mmol/L (22.0-26.0); Arterial MetHb 0.4 % (0.0-1.5); Arterial pCO2 43.2 mmhg (35-45); MODE VENT - BIPHASIC; Site Right Radial; TROPONIN-I 0.146 ng/ml (0.000-0.120)
[2018-10-25] MEDS: DEXTROSE 20% 500 ML IV (15:00)
[2018-10-25 15:21] LABS: AADO2 Arterial 433.2 mmHg (7.0-24.0); Allen Test ACCEPTAB; Arterial Base Excess 0.7 mmol/L (-3.0-3); Arterial Blood Gas Oxygen Sat 98.8 mmHG (95.0-98.0); Arterial COHb 0.7 % (0.0-3.0); Arterial Fraction of Oxyhgb 97.8 % (93.0-99.0); Arterial HCO3 25.4 mmol/L (22.0-26.0); Arterial MetHb 0.3 % (0.0-1.5); MODE VENT- AC/VC+; Site Right Radial
[2018-10-25 15:47] LABS: ADD UMIC YES; UR ASCORBIC ACID NEGATIVE (NEGATIVE); UR BACTERIA FEW /HPF (NONE SEEN); UR BILIRUBIN (Dip) NEGATIVE (NEGATIVE); UR BLOOD (Dip) 2+ mg/dL (NEGATIVE); UR BUDDING YEAST FEW /HPF (NONE SEEN); UR CLARITY CLEAR (CLEAR); UR COLOR YELLOW (YELLOW); UR GLUCOSE (Dip) NEGATIVE (NEGATIVE); UR KETONES (Dip) NEGATIVE (NEGATIVE); UR LEUKOCYTE ESTERASE (Dip) NEGATIVE Leu/ul (NEGATIVE); UR NITRITE (Dip) NEGATIVE (NEGATIVE); UR RBC 34 /HPF (0-5); UR SPECIFIC GRAVITY (Dip) 1.036 (1.003-1.030); UR TOTAL PROTEIN (Dip) 1+ mg/dl (NEGATIVE); UR UROBILINOGEN (Dip) NEGATIVE (NEGATIVE); UR WBC 3 /HPF (0-5)
[2018-10-25 18:15] LABS: AADO2 Arterial 80.9 mmHg (7.0-24.0); Arterial Base Excess 0.1 mmol/L (-3.0-3); Arterial Blood Gas Oxygen Sat 98.6 mmHG (95.0-98.0); Arterial COHb 0.3 % (0.0-3.0); Arterial Fraction of Oxyhgb 97.8 % (93.0-99.0); Arterial HCO3 24.2 mmol/L (22.0-26.0); Arterial MetHb 0.5 % (0.0-1.5); Arterial pCO2 36.8 mmhg (35-45); Blood Gas Low PEEP Setting 0 cmH2O; MODE VENT - BIPHASIC; Site A-Line
[2018-10-25 18:23] LABS: ABNORMAL IP MESSAGE 1; HEMATOCRIT 18.3 % (37.0-47.0); MEAN CORPUSCULAR HEMOGLOBIN 29.1 pg (29.0-33.0); MEAN CORPUSCULAR HGB CONC 32.8 g/dl (32.0-37.0); MEAN CORPUSCULAR VOLUME 88.8 fl (82.0-101.0); MEAN PLATELET VOLUME 10.9 fl (7.4-10.4); NUCLEATED RED BLOOD CELLS% 0.6 /100WBC (0.0-0.0); PLATELET COUNT 86 10^3/UL (140-415); RED BLOOD COUNT 2.06 10^6/ul (4.20-5.40); RED CELL DISTRIBUTION WIDTH 14.1 % (11.5-14.5)
[2018-10-25 18:23] LABS: WHITE BLOOD COUNT 12.2 10^3/ul (4.8-10.8)
[2018-10-25 18:27] LABS: POSITIVE DIFF @See below
[2018-10-25 18:31] LABS: ADD MAN DIFF? YES
[2018-10-25 18:43] LABS: INR 1.27; PT RATIO 1.3
[2018-10-25 18:44] LABS: PARTIAL THROMBOPLASTIN TIME 27.6 Sec (23.0-35.0)
[2018-10-25 18:46] LABS: AMYLASE 66 U/L (11-123); CREATINE KINASE 137 IU/L (23-200); LACTATE DEHYDROGENASE 1636 IU/L (313-618); LIPASE 57 U/L (23-300); MAGNESIUM 2.1 mg/dl (1.7-2.5)
[2018-10-25 18:46] LABS: PHOSPHORUS 3.8 mg/dl (2.5-4.9)
[2018-10-25 18:56] LABS: LACTIC ACID 2.7 mmol/L (0.5-2.0)
[2018-10-25 18:59] LABS: CK INDEX 1.7; CK-MB 2.39 ng/ml (0.0-2.4); TROPONIN-I 0.101 ng/ml (0.000-0.120)
[2018-10-25 19:04] LABS: BILIRUBIN,INDIRECT 0.9 mg/dl (0-1.1); BILIRUBIN,TOTAL 0.9 mg/dl (0.2-1.3)
[2018-10-25 19:05] LABS: ALANINE AMINOTRANSFERASE 39 IU/L (13-69); ALBUMIN 4.6 g/dl (3.3-4.9); ALKALINE PHOSPHATASE 63 IU/L (42-121); ANION GAP 17 (5-13); ASPARTATE AMINO TRANSFERASE 79 IU/L (15-46); BILIRUBIN,INDIRECT 0.9 mg/dl (0-1.1); BILIRUBIN,TOTAL 0.9 mg/dl (0.2-1.3); BLOOD UREA NITROGEN 43 mg/dl (7-20); CALCIUM 9.6 mg/dl (8.4-10.2); CARBON DIOXIDE 27 mmol/L (21-31); CHLORIDE 101 mmol/L (97-110); CREATININE 1.08 mg/dl (0.44-1.00); Estimated GFR 56 mL/min (>60); GLUCOSE 145 mg/dl (70-220); POTASSIUM 3.1 mmol/L (3.5-5.1); SODIUM 145 mmol/L (135-144); TOTAL PROTEIN 6.9 g/dl (6.1-8.1)
[2018-10-25 19:09] LABS: ANISOCYTOSIS 2+ (0-0); BAND NEUTROPHILS #M 0.1 10^3/ul (0.0-0.6); BAND NEUTROPHILS % (M) 1 % (0-4); LYMPHOCYTES #M 0.8 10^3/ul (0.8-2.9); LYMPHOCYTES % (M) 7 % (15-51); MICROCYTOSIS 1+ (0-0); MONOCYTE #M 0.2 10^3/ul (0.3-0.9); MONOCYTES % (M) 2 % (0-11); PLATELET ESTIMATE DECREASED; POLYCHROMASIA 2+ (0-0); SEGMENTED NEUTROPHILS (M) % 90 % (39-77)
[2018-10-25 19:14] LABS: IONIZED CALCIUM 1.2 mmol/L (1.1-1.4)
[2018-10-25 19:15] LABS: OSMOLALITY 300 mOsm/kg (280-295)
[2018-10-25 19:19] LABS: IMMEDIATE SPIN CROSSMATCH 1 5
[2018-10-25 21:18] LABS: Arterial Base Excess 2.1 mmol/L (-3.0-3); Arterial Blood Gas Oxygen Sat 99.1 mmHG (95.0-98.0); Arterial COHb 0.3 % (0.0-3.0); Arterial Fraction of Oxyhgb 98.3 % (93.0-99.0); Arterial HCO3 26.5 mmol/L (22.0-26.0); Arterial MetHb 0.5 % (0.0-1.5); Arterial pCO2 40.9 mmhg (35-45); Blood Gas Low PEEP Setting 0 cmH2O; MODE VENT - BIPHASIC; Site A-Line
[2018-10-25] MEDS ORDERED: POTASSIUM CHLORIDE 50 ML IVPB ×2 (21:30→23:00)
[2018-10-25 23:32] LABS: IMMEDIATE SPIN CROSSMATCH 1 1
[2018-10-26 00:04] LABS: ADD MAN DIFF? NO
[2018-10-26 00:15] LABS: ABNORMAL IP MESSAGE 1; BASOPHILS % 0.1 % (0.0-2.0); HEMATOCRIT 21.1 % (37.0-47.0); HEMOGLOBIN 7.1 g/dl (12.0-16.0); LYMPHOCYTES # 0.3 10^3/ul (0.8-2.9); LYMPHOCYTES % 2.9 % (15.0-51.0); MEAN CORPUSCULAR HEMOGLOBIN 29.7 pg (29.0-33.0); MEAN CORPUSCULAR HGB CONC 33.6 g/dl (32.0-37.0); MEAN CORPUSCULAR VOLUME 88.3 fl (82.0-101.0); MEAN PLATELET VOLUME 11.3 fl (7.4-10.4); MONOCYTE # 0.3 10^3/ul (0.3-0.9); MONOCYTES % 3.4 % (0.0-11.0); NEUTROPHIL # 8.7 10^3/ul (1.6-7.5); NEUTROPHILS % 92.2 % (39.0-77.0); NUCLEATED RED BLOOD CELLS # 0.1 10^3/ul (0.0-0.0); NUCLEATED RED BLOOD CELLS% 0.6 /100WBC (0.0-0.0); PLATELET COUNT 74 10^3/UL (140-415); RED BLOOD COUNT 2.39 10^6/ul (4.20-5.40); RED CELL DISTRIBUTION WIDTH 13.8 % (11.5-14.5)
[2018-10-26 00:15] LABS: WHITE BLOOD COUNT 9.4 10^3/ul (4.8-10.8)
[2018-10-26 00:16] LABS: POSITIVE DIFF @See below
[2018-10-26 00:28] LABS: LACTIC ACID 1.9 mmol/L (0.5-2.0); PHOSPHORUS 3.4 mg/dl (2.5-4.9)
[2018-10-26 00:28] LABS: ADD UMIC YES; AMYLASE 69 U/L (11-123); CREATINE KINASE 145 IU/L (23-200); LACTATE DEHYDROGENASE 1717 IU/L (313-618); LIPASE 54 U/L (23-300); MAGNESIUM 2.2 mg/dl (1.7-2.5); UR ASCORBIC ACID NEGATIVE (NEGATIVE); UR BACTERIA FEW /HPF (NONE SEEN); UR BILIRUBIN (Dip) NEGATIVE (NEGATIVE); UR BLOOD (Dip) 3+ mg/dL (NEGATIVE); UR BUDDING YEAST MODERATE /HPF (NONE SEEN); UR CLARITY SLIGHTLY CLOUDY (CLEAR); UR COLOR YELLOW (YELLOW); UR GLUCOSE (Dip) NEGATIVE (NEGATIVE); UR KETONES (Dip) NEGATIVE (NEGATIVE); UR LEUKOCYTE ESTERASE (Dip) TRACE Leu/ul (NEGATIVE); UR MUCUS FEW /HPF (NONE SEEN); UR NITRITE (Dip) NEGATIVE (NEGATIVE); UR RBC 18 /HPF (0-5); UR SPECIFIC GRAVITY (Dip) 1.025 (1.003-1.030); UR TOTAL PROTEIN (Dip) 1+ mg/dl (NEGATIVE); UR UROBILINOGEN (Dip) NEGATIVE (NEGATIVE); UR WBC 25 /HPF (0-5)
[2018-10-26] MEDS: ARTIFICIAL TEARS 15 ML OPH BOTH EYES ×13 (00:28→23:05)
[2018-10-26] MEDS: THIAMINE 100 MG in SOD CHLORIDE 0.9% 100 ML IV ×5 (00:28→23:05)
[2018-10-26 00:29] LABS: ALANINE AMINOTRANSFERASE 39 IU/L (13-69); ALBUMIN 4.1 g/dl (3.3-4.9); ALBUMIN/GLOBULIN RATIO 1.57; ALKALINE PHOSPHATASE 53 IU/L (42-121); ANION GAP 12 (5-13); ASPARTATE AMINO TRANSFERASE 80 IU/L (15-46); BILIRUBIN,INDIRECT 0.9 mg/dl (0-1.1); BILIRUBIN,TOTAL 1.2 mg/dl (0.2-1.3); BLOOD UREA NITROGEN 42 mg/dl (7-20); CALCIUM 9.3 mg/dl (8.4-10.2); CARBON DIOXIDE 28 mmol/L (21-31); CHLORIDE 104 mmol/L (97-110); CREATININE 0.96 mg/dl (0.44-1.00); Estimated GFR > 60 mL/min (>60); GLUCOSE 126 mg/dl (70-220); POTASSIUM 3.4 mmol/L (3.5-5.1); SODIUM 144 mmol/L (135-144); TOTAL PROTEIN 6.7 g/dl (6.1-8.1)
[2018-10-26] MEDS: POTASSIUM CHLORIDE 100 ML IVPB ×7 (00:30→16:17)
[2018-10-26 00:40] LABS: INR 1.28; PARTIAL THROMBOPLASTIN TIME 27.4 Sec (23.0-35.0); PROTIME 16.1 Sec (11.9-14.9); PT RATIO 1.3
[2018-10-26 00:44] LABS: CK INDEX 1.6; CK-MB 2.26 ng/ml (0.0-2.4)
[2018-10-26 00:45] LABS: IONIZED CALCIUM 1.2 mmol/L (1.1-1.4)
[2018-10-26 00:52] LABS: TROPONIN-I 0.122 ng/ml (0.000-0.120)
[2018-10-26 00:54] LABS: AADO2 Arterial 60.5 mmHg (7.0-24.0); Arterial Base Excess -0.2 mmol/L (-3.0-3); Arterial Blood Gas Oxygen Sat 98.6 mmHG (95.0-98.0); Arterial COHb 0.3 % (0.0-3.0); Arterial Fraction of Oxyhgb 97.9 % (93.0-99.0); Arterial HCO3 24.9 mmol/L (22.0-26.0); Arterial MetHb 0.4 % (0.0-1.5); Arterial pCO2 42.6 mmhg (35-45); MODE VENT - AC; Site A-Line
[2018-10-26 01:18] LABS: OSMOLALITY 303 mOsm/kg (280-295)
[2018-10-26 01:32] LABS: Arterial Base Excess -1.7 mmol/L (-3.0-3); Arterial Blood Gas Oxygen Sat 99.3 mmHG (95.0-98.0); Arterial COHb 0.3 % (0.0-3.0); Arterial Fraction of Oxyhgb 98.5 % (93.0-99.0); Arterial HCO3 23.1 mmol/L (22.0-26.0); Arterial MetHb 0.5 % (0.0-1.5); Arterial pCO2 38.8 mmhg (35-45); MODE VENT - AC; Site A-Line
[2018-10-26] MEDS: ACCU-CHEK XX ×13 (01:54→21:42)
[2018-10-26] MEDS: INSULIN HUMAN REGULAR 100 UNIT in SOD CHLORIDE 0.9% 99 ML IV (03:00)
[2018-10-26] MEDS: VASOPRESSIN 60 UNIT in SOD CHLORIDE 0.9% 57 ML IV ×2 (03:00→13:38)
[2018-10-26] MEDS: DOBUTamine/D5W 2 MG/ML DRIP 250 ML IV (03:02)
[2018-10-26] MEDS: ALBUMIN HUMAN 25% 100 ML IV ×2 (04:52→16:47)
[2018-10-26] MEDS: FUROSEMIDE 40 MG INJ IV ×2 (05:39→17:28)
[2018-10-26] MEDS: METHYLPRED. NA SUCC 500 MG in SOD CHLORIDE 0.9% 100 ML IVPB ×3 (05:39→21:42)
[2018-10-26] MEDS: PIPER-TAZO 3.375 GM IV (PMX) 100 ML IVPB ×3 (05:40→21:42)
[2018-10-26 06:12] LABS: AADO2 Arterial 76.4 mmHg (7.0-24.0); Arterial Base Excess 0.3 mmol/L (-3.0-3); Arterial Blood Gas Oxygen Sat 98.4 mmHG (95.0-98.0); Arterial COHb 0.3 % (0.0-3.0); Arterial Fraction of Oxyhgb 97.7 % (93.0-99.0); Arterial HCO3 25.4 mmol/L (22.0-26.0); Arterial MetHb 0.4 % (0.0-1.5); Arterial pCO2 43.7 mmhg (35-45); Blood Gas Low PEEP Setting 0 cmH2O; MODE VENT - BIPHASIC; Site A-Line
[2018-10-26 06:23] LABS: ADD MAN DIFF? NO
[2018-10-26 06:30] LABS: WHITE BLOOD COUNT 9.1 10^3/ul (4.8-10.8)
[2018-10-26 06:30] LABS: ABNORMAL IP MESSAGE 1; BASOPHILS % 0.1 % (0.0-2.0); HEMATOCRIT 24.6 % (37.0-47.0); HEMOGLOBIN 8.2 g/dl (12.0-16.0); LYMPHOCYTES # 0.2 10^3/ul (0.8-2.9); LYMPHOCYTES % 2.3 % (15.0-51.0); MEAN CORPUSCULAR HEMOGLOBIN 28.4 pg (29.0-33.0); MEAN CORPUSCULAR HGB CONC 33.3 g/dl (32.0-37.0); MEAN CORPUSCULAR VOLUME 85.1 fl (82.0-101.0); MONOCYTE # 0.2 10^3/ul (0.3-0.9); MONOCYTES % 2.6 % (0.0-11.0); NEUTROPHIL # 8.5 10^3/ul (1.6-7.5); NEUTROPHILS % 93.7 % (39.0-77.0); NUCLEATED RED BLOOD CELLS # 0.1 10^3/ul (0.0-0.0); NUCLEATED RED BLOOD CELLS% 0.7 /100WBC (0.0-0.0); PLATELET COUNT 73 10^3/UL (140-415); RED BLOOD COUNT 2.89 10^6/ul (4.20-5.40); RED CELL DISTRIBUTION WIDTH 15.9 % (11.5-14.5)
[2018-10-26 06:33] LABS: POSITIVE DIFF @See below
[2018-10-26 06:51] LABS: INR 1.31; PARTIAL THROMBOPLASTIN TIME 24.9 Sec (23.0-35.0); PROTIME 16.4 Sec (11.9-14.9); PT RATIO 1.3
[2018-10-26 06:53] LABS: AMYLASE 67 U/L (11-123); CREATINE KINASE 228 IU/L (23-200); LACTATE DEHYDROGENASE 1939 IU/L (313-618); LIPASE 65 U/L (23-300); MAGNESIUM 2.3 mg/dl (1.7-2.5)
[2018-10-26 06:53] LABS: PHOSPHORUS 3.1 mg/dl (2.5-4.9)
[2018-10-26 06:54] LABS: LACTIC ACID 1.7 mmol/L (0.5-2.0)
[2018-10-26 06:58] LABS: BILIRUBIN,INDIRECT 1.1 mg/dl (0-1.1); BILIRUBIN,TOTAL 1.9 mg/dl (0.2-1.3)
[2018-10-26 07:02] LABS: CK INDEX 1.4; CK-MB 3.27 ng/ml (0.0-2.4)
[2018-10-26 07:07] LABS: TROPONIN-I 0.129 ng/ml (0.000-0.120)
[2018-10-26 07:09] LABS: OSMOLALITY 307 mOsm/kg (280-295)
[2018-10-26 07:10] LABS: IONIZED CALCIUM 1.3 mmol/L (1.1-1.4)
[2018-10-26 07:15] LABS: ALANINE AMINOTRANSFERASE 30 IU/L (13-69); ALBUMIN 4.7 g/dl (3.3-4.9); ALBUMIN/GLOBULIN RATIO 1.88; ALKALINE PHOSPHATASE 51 IU/L (42-121); ANION GAP 14 (5-13); ASPARTATE AMINO TRANSFERASE 79 IU/L (15-46); BILIRUBIN,INDIRECT 1.1 mg/dl (0-1.1); BILIRUBIN,TOTAL 1.7 mg/dl (0.2-1.3); BLOOD UREA NITROGEN 41 mg/dl (7-20); CALCIUM 9.6 mg/dl (8.4-10.2); CARBON DIOXIDE 26 mmol/L (21-31); CHLORIDE 107 mmol/L (97-110); CREATININE 0.88 mg/dl (0.44-1.00); Estimated GFR > 60 mL/min (>60); GLUCOSE 147 mg/dl (70-220); POTASSIUM 3.6 mmol/L (3.5-5.1); SODIUM 147 mmol/L (135-144); TOTAL PROTEIN 7.2 g/dl (6.1-8.1)
[2018-10-26] MEDS: VANCOMYCIN 1 GM (PMX) 250 ML IVPB ×2 (07:16→17:29)
[2018-10-26 07:34] LABS: ADD MAN DIFF? NO
[2018-10-26 07:36] LABS: ADD MAN DIFF? NO
[2018-10-26] MEDS: CEFTRIAXONE 1 GM/50 ML (PMX) 50 ML IVPB ×2 (08:26→20:13)
[2018-10-26 12:21] LABS: AADO2 Arterial 92.6 mmHg (7.0-24.0); Arterial Blood Gas Oxygen Sat 98.3 mmHG (95.0-98.0); Arterial COHb 0.3 % (0.0-3.0); Arterial Fraction of Oxyhgb 97.6 % (93.0-99.0); Arterial HCO3 26.8 mmol/L (22.0-26.0); Arterial MetHb 0.4 % (0.0-1.5); Arterial pCO2 37.6 mmhg (35-45); Blood Gas Low PEEP Setting 0 cmH2O; MODE VENT - BIPHASIC; Respiratory Rate 9.5; Site A-Line
[2018-10-26 12:30] LABS: ABNORMAL IP MESSAGE 1; HEMATOCRIT 24.3 % (37.0-47.0); LYMPHOCYTES # 0.2 10^3/ul (0.8-2.9); LYMPHOCYTES % 2.4 % (15.0-51.0); MEAN CORPUSCULAR HEMOGLOBIN 27.6 pg (29.0-33.0); MEAN CORPUSCULAR HGB CONC 32.9 g/dl (32.0-37.0); MEAN CORPUSCULAR VOLUME 83.8 fl (82.0-101.0); MEAN PLATELET VOLUME 10.6 fl (7.4-10.4); MONOCYTE # 0.2 10^3/ul (0.3-0.9); MONOCYTES % 2.3 % (0.0-11.0); NEUTROPHIL # 7.9 10^3/ul (1.6-7.5); NEUTROPHILS % 94.2 % (39.0-77.0); NUCLEATED RED BLOOD CELLS% 0.5 /100WBC (0.0-0.0); PLATELET COUNT 79 10^3/UL (140-415); POSITIVE DIFF @See below; RED CELL DISTRIBUTION WIDTH 16.2 % (11.5-14.5)
[2018-10-26 12:30] LABS: WHITE BLOOD COUNT 8.3 10^3/ul (4.8-10.8)
[2018-10-26 12:49] LABS: ADD UMIC YES; UR ASCORBIC ACID NEGATIVE (NEGATIVE); UR BILIRUBIN (Dip) NEGATIVE (NEGATIVE); UR BLOOD (Dip) 3+ mg/dL (NEGATIVE); UR BUDDING YEAST MANY /HPF (NONE SEEN); UR CLARITY SLIGHTLY CLOUDY (CLEAR); UR COLOR YELLOW (YELLOW); UR GLUCOSE (Dip) NEGATIVE (NEGATIVE); UR KETONES (Dip) NEGATIVE (NEGATIVE); UR LEUKOCYTE ESTERASE (Dip) TRACE Leu/ul (NEGATIVE); UR NITRITE (Dip) NEGATIVE (NEGATIVE); UR RBC 9 /HPF (0-5); UR SPECIFIC GRAVITY (Dip) 1.011 (1.003-1.030); UR TOTAL PROTEIN (Dip) NEGATIVE (NEGATIVE); UR UROBILINOGEN (Dip) NEGATIVE (NEGATIVE); UR WBC 3 /HPF (0-5)
[2018-10-26 12:53] LABS: LACTIC ACID 2.1 mmol/L (0.5-2.0)
[2018-10-26 12:53] LABS: INR 1.28; PROTIME 16.1 Sec (11.9-14.9); PT RATIO 1.3
[2018-10-26 12:54] LABS: PARTIAL THROMBOPLASTIN TIME 24.5 Sec (23.0-35.0)
[2018-10-26 13:00] LABS: PHOSPHORUS 3.3 mg/dl (2.5-4.9)
[2018-10-26 13:00] LABS: AMYLASE 66 U/L (11-123); CREATINE KINASE 247 IU/L (23-200); LACTATE DEHYDROGENASE 2038 IU/L (313-618); LIPASE 71 U/L (23-300); MAGNESIUM 2.2 mg/dl (1.7-2.5)
[2018-10-26 13:02] LABS: ALANINE AMINOTRANSFERASE 36 IU/L (13-69); ALBUMIN 4.5 g/dl (3.3-4.9); ALBUMIN/GLOBULIN RATIO 1.73; ALKALINE PHOSPHATASE 54 IU/L (42-121); ANION GAP 13 (5-13); ASPARTATE AMINO TRANSFERASE 88 IU/L (15-46); BILIRUBIN,TOTAL 1.6 mg/dl (0.2-1.3); BLOOD UREA NITROGEN 42 mg/dl (7-20); CALCIUM 9.7 mg/dl (8.4-10.2); CARBON DIOXIDE 30 mmol/L (21-31); CHLORIDE 104 mmol/L (97-110); CREATININE 0.92 mg/dl (0.44-1.00); Estimated GFR > 60 mL/min (>60); GLUCOSE 167 mg/dl (70-220); SODIUM 147 mmol/L (135-144); TOTAL PROTEIN 7.1 g/dl (6.1-8.1)
[2018-10-26 13:03] LABS: IONIZED CALCIUM 1.2 mmol/L (1.1-1.4)
[2018-10-26 13:05] LABS: POTASSIUM 2.7 mmol/L (3.5-5.1)
[2018-10-26 13:06] LABS: OSMOLALITY 307 mOsm/kg (280-295)
[2018-10-26 13:12] LABS: CK INDEX 1.1; CK-MB 2.72 ng/ml (0.0-2.4); TROPONIN-I 0.096 ng/ml (0.000-0.120)
[2018-10-26] MEDS: POTASSIUM CHLORIDE 20 MEQ POWDER FOR ORAL SOLN GTB (13:42)
[2018-10-26] MEDS: DEXTROSE 20% 500 ML IV (14:41)
[2018-10-26 18:21] LABS: ABNORMAL IP MESSAGE 1; BASOPHILS % 0.1 % (0.0-2.0); HEMATOCRIT 22.6 % (37.0-47.0); HEMOGLOBIN 7.6 g/dl (12.0-16.0); LYMPHOCYTES # 0.2 10^3/ul (0.8-2.9); LYMPHOCYTES % 1.9 % (15.0-51.0); MEAN CORPUSCULAR HEMOGLOBIN 28.4 pg (29.0-33.0); MEAN CORPUSCULAR HGB CONC 33.6 g/dl (32.0-37.0); MEAN CORPUSCULAR VOLUME 84.3 fl (82.0-101.0); MEAN PLATELET VOLUME 10.6 fl (7.4-10.4); MONOCYTE # 0.3 10^3/ul (0.3-0.9); NEUTROPHIL # 7.9 10^3/ul (1.6-7.5); NEUTROPHILS % 93.7 % (39.0-77.0); NUCLEATED RED BLOOD CELLS # 0.1 10^3/ul (0.0-0.0); NUCLEATED RED BLOOD CELLS% 0.6 /100WBC (0.0-0.0); PLATELET COUNT 84 10^3/UL (140-415); RED BLOOD COUNT 2.68 10^6/ul (4.20-5.40); RED CELL DISTRIBUTION WIDTH 16.6 % (11.5-14.5)
[2018-10-26 18:21] LABS: WHITE BLOOD COUNT 8.4 10^3/ul (4.8-10.8)
[2018-10-26 18:23] LABS: POSITIVE DIFF @See below
[2018-10-26 18:24] LABS: AADO2 Arterial 78.3 mmHg (7.0-24.0); Arterial Blood Gas Oxygen Sat 98.3 mmHG (95.0-98.0); Arterial COHb 0.3 % (0.0-3.0); Arterial Fraction of Oxyhgb 97.5 % (93.0-99.0); Arterial HCO3 24.3 mmol/L (22.0-26.0); Arterial MetHb 0.5 % (0.0-1.5); Arterial pCO2 43.3 mmhg (35-45); Blood Gas Low PEEP Setting 0 cmH2O; MODE VENT - BIPHASIC; Site A-Line
[2018-10-26 18:41] LABS: INR 1.33; PARTIAL THROMBOPLASTIN TIME 25.8 Sec (23.0-35.0); PROTIME 16.6 Sec (11.9-14.9); PT RATIO 1.3
[2018-10-26 18:45] LABS: AMYLASE 77 U/L (11-123); CREATINE KINASE 278 IU/L (23-200); LACTATE DEHYDROGENASE 2102 IU/L (313-618); LIPASE 103 U/L (23-300); MAGNESIUM 2.3 mg/dl (1.7-2.5)
[2018-10-26 18:45] LABS: PHOSPHORUS 2.7 mg/dl (2.5-4.9)
[2018-10-26 18:46] LABS: ALANINE AMINOTRANSFERASE 37 IU/L (13-69); ALBUMIN 4.8 g/dl (3.3-4.9); ALBUMIN/GLOBULIN RATIO 1.65; ALKALINE PHOSPHATASE 52 IU/L (42-121); ANION GAP 11 (5-13); ASPARTATE AMINO TRANSFERASE 86 IU/L (15-46); BLOOD UREA NITROGEN 41 mg/dl (7-20); CALCIUM 9.7 mg/dl (8.4-10.2); CARBON DIOXIDE 27 mmol/L (21-31); CHLORIDE 108 mmol/L (97-110); CREATININE 0.85 mg/dl (0.44-1.00); Estimated GFR > 60 mL/min (>60); GLUCOSE 151 mg/dl (70-220); POTASSIUM 4.1 mmol/L (3.5-5.1); SODIUM 146 mmol/L (135-144); TOTAL PROTEIN 7.7 g/dl (6.1-8.1)
[2018-10-26 18:47] LABS: BILIRUBIN,TOTAL 1.9 mg/dl (0.2-1.3)
[2018-10-26 18:51] LABS: LACTIC ACID 1.3 mmol/L (0.5-2.0)
[2018-10-26 18:52] LABS: OSMOLALITY 313 mOsm/kg (280-295)
[2018-10-26 18:53] LABS: ADD UMIC YES; UR ASCORBIC ACID NEGATIVE (NEGATIVE); UR BACTERIA FEW /HPF (NONE SEEN); UR BILIRUBIN (Dip) NEGATIVE (NEGATIVE); UR BLOOD (Dip) 3+ mg/dL (NEGATIVE); UR BUDDING YEAST MODERATE /HPF (NONE SEEN); UR CLARITY CLEAR (CLEAR); UR COLOR STRAW (YELLOW); UR GLUCOSE (Dip) NEGATIVE (NEGATIVE); UR KETONES (Dip) NEGATIVE (NEGATIVE); UR LEUKOCYTE ESTERASE (Dip) TRACE Leu/ul (NEGATIVE); UR MUCUS FEW /HPF (NONE SEEN); UR NITRITE (Dip) NEGATIVE (NEGATIVE); UR RBC 9 /HPF (0-5); UR SPECIFIC GRAVITY (Dip) 1.006 (1.003-1.030); UR TOTAL PROTEIN (Dip) NEGATIVE (NEGATIVE); UR UROBILINOGEN (Dip) NEGATIVE (NEGATIVE); UR WBC 8 /HPF (0-5)
[2018-10-26 18:57] LABS: CK INDEX 1.1; CK-MB 3.06 ng/ml (0.0-2.4); TROPONIN-I 0.079 ng/ml (0.000-0.120)
[2018-10-26 19:09] LABS: IONIZED CALCIUM 1.3 mmol/L (1.1-1.4)
[2018-10-27 00:39] LABS: AADO2 Arterial 55.2 mmHg (7.0-24.0); Arterial Base Excess 1.8 mmol/L (-3.0-3); Arterial Blood Gas Oxygen Sat 98.2 mmHG (95.0-98.0); Arterial COHb 0.3 % (0.0-3.0); Arterial Fraction of Oxyhgb 97.4 % (93.0-99.0); Arterial HCO3 28.2 mmol/L (22.0-26.0); Arterial MetHb 0.5 % (0.0-1.5); Arterial pCO2 54.8 mmhg (35-45); Blood Gas Low PEEP Setting 0 cmH2O; MODE VENT - BIPHASIC; Site A-Line
[2018-10-27] MEDS: ACCU-CHEK XX ×12 (00:58→21:23)
[2018-10-27] MEDS: INSULIN HUMAN REGULAR 100 UNIT in SOD CHLORIDE 0.9% 99 ML IV (01:00)
[2018-10-27 01:10] LABS: ADD MAN DIFF? NO
[2018-10-27 01:16] LABS: WHITE BLOOD COUNT 8.2 10^3/ul (4.8-10.8)
[2018-10-27 01:16] LABS: ABNORMAL IP MESSAGE 1; BASOPHILS % 0.1 % (0.0-2.0); HEMATOCRIT 22.7 % (37.0-47.0); HEMOGLOBIN 7.6 g/dl (12.0-16.0); LYMPHOCYTES # 0.2 10^3/ul (0.8-2.9); LYMPHOCYTES % 1.8 % (15.0-51.0); MEAN CORPUSCULAR HEMOGLOBIN 28.6 pg (29.0-33.0); MEAN CORPUSCULAR HGB CONC 33.5 g/dl (32.0-37.0); MEAN CORPUSCULAR VOLUME 85.3 fl (82.0-101.0); MEAN PLATELET VOLUME 10.6 fl (7.4-10.4); MONOCYTE # 0.2 10^3/ul (0.3-0.9); MONOCYTES % 2.3 % (0.0-11.0); NEUTROPHIL # 7.8 10^3/ul (1.6-7.5); NEUTROPHILS % 94.7 % (39.0-77.0); NUCLEATED RED BLOOD CELLS% 0.4 /100WBC (0.0-0.0); PLATELET COUNT 96 10^3/UL (140-415); RED BLOOD COUNT 2.66 10^6/ul (4.20-5.40); RED CELL DISTRIBUTION WIDTH 16.7 % (11.5-14.5)
[2018-10-27 01:17] LABS: POSITIVE DIFF @See below
[2018-10-27 01:33] LABS: INR 1.28; PARTIAL THROMBOPLASTIN TIME 25.5 Sec (23.0-35.0); PROTIME 16.1 Sec (11.9-14.9); PT RATIO 1.3
[2018-10-27 01:36] LABS: ALANINE AMINOTRANSFERASE 40 IU/L (13-69); ALBUMIN 4.5 g/dl (3.3-4.9); ALKALINE PHOSPHATASE 52 IU/L (42-121); AMYLASE 76 U/L (11-123); ANION GAP 11 (5-13); ASPARTATE AMINO TRANSFERASE 89 IU/L (15-46); BILIRUBIN,INDIRECT 0.9 mg/dl (0-1.1); BILIRUBIN,TOTAL 1.7 mg/dl (0.2-1.3); BLOOD UREA NITROGEN 43 mg/dl (7-20); CALCIUM 9.6 mg/dl (8.4-10.2); CARBON DIOXIDE 32 mmol/L (21-31); CHLORIDE 106 mmol/L (97-110); CREATINE KINASE 313 IU/L (23-200); CREATININE 0.88 mg/dl (0.44-1.00); Estimated GFR > 60 mL/min (>60); GLUCOSE 142 mg/dl (70-220); LIPASE 94 U/L (23-300); MAGNESIUM 2.4 mg/dl (1.7-2.5); PHOSPHORUS 3.6 mg/dl (2.5-4.9); POTASSIUM 3.1 mmol/L (3.5-5.1); SODIUM 149 mmol/L (135-144); TOTAL PROTEIN 7.3 g/dl (6.1-8.1)
[2018-10-27 01:41] LABS: LACTIC ACID 1.3 mmol/L (0.5-2.0)
[2018-10-27 01:50] LABS: ADD UMIC YES; UR ASCORBIC ACID NEGATIVE (NEGATIVE); UR BACTERIA FEW /HPF (NONE SEEN); UR BILIRUBIN (Dip) NEGATIVE (NEGATIVE); UR BLOOD (Dip) 3+ mg/dL (NEGATIVE); UR BUDDING YEAST MANY /HPF (NONE SEEN); UR CLARITY SLIGHTLY CLOUDY (CLEAR); UR COLOR AMBER (YELLOW); UR GLUCOSE (Dip) NEGATIVE (NEGATIVE); UR KETONES (Dip) NEGATIVE (NEGATIVE); UR LEUKOCYTE ESTERASE (Dip) TRACE Leu/ul (NEGATIVE); UR MUCUS FEW /HPF (NONE SEEN); UR NITRITE (Dip) NEGATIVE (NEGATIVE); UR RBC 48 /HPF (0-5); UR SPECIFIC GRAVITY (Dip) 1.028 (1.003-1.030); UR TOTAL PROTEIN (Dip) 2+ mg/dl (NEGATIVE); UR UROBILINOGEN (Dip) NEGATIVE (NEGATIVE); UR WBC 21 /HPF (0-5)
[2018-10-27] MEDS: ARTIFICIAL TEARS 15 ML OPH BOTH EYES ×11 (02:36→21:24)
[2018-10-27] MEDS: ALBUMIN HUMAN 25% 100 ML IV ×2 (04:21→17:03)
[2018-10-27] MEDS: POTASSIUM CHLORIDE 50 ML IVPB ×7 (04:27→21:39)
[2018-10-27] MEDS: ACETAZOLAMIDE 500 MG INJ IV ×2 (04:27→13:36)
[2018-10-27 04:55] LABS: OSMOLALITY 312 mOsm/kg (280-295)
[2018-10-27] MEDS: FUROSEMIDE 40 MG INJ IV ×2 (05:07→17:02)
[2018-10-27] MEDS: THIAMINE 100 MG in SOD CHLORIDE 0.9% 100 ML IV ×3 (05:08→17:02)
[2018-10-27] MEDS: PIPER-TAZO 3.375 GM IV (PMX) 100 ML IVPB ×3 (05:08→21:23)
[2018-10-27] MEDS: METHYLPRED. NA SUCC 500 MG in SOD CHLORIDE 0.9% 100 ML IVPB ×3 (05:09→21:23)
[2018-10-27] MEDS: VANCOMYCIN 1 GM (PMX) 250 ML IVPB ×2 (05:09→17:51)
[2018-10-27 05:52] LABS: ADD MAN DIFF? NO
[2018-10-27 05:57] LABS: AADO2 Arterial 64.5 mmHg (7.0-24.0); Arterial Base Excess 2.1 mmol/L (-3.0-3); Arterial Blood Gas Oxygen Sat 98.2 mmHG (95.0-98.0); Arterial COHb 0.3 % (0.0-3.0); Arterial Fraction of Oxyhgb 97.3 % (93.0-99.0); Arterial HCO3 28.7 mmol/L (22.0-26.0); Arterial MetHb 0.6 % (0.0-1.5); Arterial pCO2 56.9 mmhg (35-45); Blood Gas Low PEEP Setting 0 cmH2O; Blood Gas PS 0; MODE VENT - BIPHASIC; Site A-Line
[2018-10-27 06:09] LABS: ABNORMAL IP MESSAGE 1; BASOPHILS % 0.1 % (0.0-2.0); HEMOGLOBIN 7.1 g/dl (12.0-16.0); LYMPHOCYTES # 0.1 10^3/ul (0.8-2.9); LYMPHOCYTES % 1.6 % (15.0-51.0); MEAN CORPUSCULAR HEMOGLOBIN 28.1 pg (29.0-33.0); MEAN CORPUSCULAR HGB CONC 32.3 g/dl (32.0-37.0); MEAN PLATELET VOLUME 11.2 fl (7.4-10.4); MONOCYTE # 0.2 10^3/ul (0.3-0.9); MONOCYTES % 2.6 % (0.0-11.0); NEUTROPHIL # 7.5 10^3/ul (1.6-7.5); NEUTROPHILS % 94.3 % (39.0-77.0); NUCLEATED RED BLOOD CELLS% 0.4 /100WBC (0.0-0.0); PLATELET COUNT 100 10^3/UL (140-415); RED BLOOD COUNT 2.53 10^6/ul (4.20-5.40); RED CELL DISTRIBUTION WIDTH 16.7 % (11.5-14.5)
[2018-10-27 06:11] LABS: POSITIVE DIFF @See below
[2018-10-27 06:20] LABS: ADD UMIC YES; UR ASCORBIC ACID NEGATIVE (NEGATIVE); UR BACTERIA FEW /HPF (NONE SEEN); UR BILIRUBIN (Dip) NEGATIVE (NEGATIVE); UR BLOOD (Dip) 2+ mg/dL (NEGATIVE); UR BUDDING YEAST MANY /HPF (NONE SEEN); UR CLARITY SLIGHTLY CLOUDY (CLEAR); UR COLOR YELLOW (YELLOW); UR GLUCOSE (Dip) NEGATIVE (NEGATIVE); UR KETONES (Dip) NEGATIVE (NEGATIVE); UR LEUKOCYTE ESTERASE (Dip) NEGATIVE Leu/ul (NEGATIVE); UR NITRITE (Dip) NEGATIVE (NEGATIVE); UR RBC 23 /HPF (0-5); UR SPECIFIC GRAVITY (Dip) 1.015 (1.003-1.030); UR TOTAL PROTEIN (Dip) 1+ mg/dl (NEGATIVE); UR UROBILINOGEN (Dip) NEGATIVE (NEGATIVE); UR WBC 8 /HPF (0-5)
[2018-10-27 06:22] LABS: INR 1.41; PROTIME 17.4 Sec (11.9-14.9); PT RATIO 1.4
[2018-10-27 06:23] LABS: PARTIAL THROMBOPLASTIN TIME 31.6 Sec (23.0-35.0)
[2018-10-27 06:44] LABS: ALANINE AMINOTRANSFERASE 35 IU/L (13-69); ALBUMIN 4.7 g/dl (3.3-4.9); ALBUMIN/GLOBULIN RATIO 1.74; ALKALINE PHOSPHATASE 50 IU/L (42-121); AMYLASE 72 U/L (11-123); ANION GAP 10 (5-13); ASPARTATE AMINO TRANSFERASE 82 IU/L (15-46); BILIRUBIN,INDIRECT 0.8 mg/dl (0-1.1); BILIRUBIN,TOTAL 1.5 mg/dl (0.2-1.3); BLOOD UREA NITROGEN 44 mg/dl (7-20); CALCIUM 9.5 mg/dl (8.4-10.2); CARBON DIOXIDE 32 mmol/L (21-31); CHLORIDE 109 mmol/L (97-110); CK-MB 3.58 ng/ml (0.0-2.4); CREATINE KINASE 248 IU/L (23-200); CREATININE 0.89 mg/dl (0.44-1.00); Estimated GFR > 60 mL/min (>60); GLUCOSE 141 mg/dl (70-220); LIPASE 84 U/L (23-300); MAGNESIUM 2.4 mg/dl (1.7-2.5); PHOSPHORUS 3.4 mg/dl (2.5-4.9); POTASSIUM 3.8 mmol/L (3.5-5.1); SODIUM 151 mmol/L (135-144); TOTAL PROTEIN 7.4 g/dl (6.1-8.1)
[2018-10-27] MEDS: VASOPRESSIN 60 UNIT in SOD CHLORIDE 0.9% 57 ML IV ×3 (07:21→19:26)
[2018-10-27 07:54] LABS: OSMOLALITY 319 mOsm/kg (280-295)
[2018-10-27] MEDS: CEFTRIAXONE 1 GM/50 ML (PMX) 50 ML IVPB ×2 (08:22→20:17)
[2018-10-27 11:55] LABS: AADO2 Arterial 48.8 mmHg (7.0-24.0); Arterial Base Excess 2.6 mmol/L (-3.0-3); Arterial Blood Gas Oxygen Sat 98.6 mmHG (95.0-98.0); Arterial COHb 0.1 % (0.0-3.0); Arterial HCO3 28.1 mmol/L (22.0-26.0); Arterial MetHb 0.5 % (0.0-1.5); Arterial pCO2 48.4 mmhg (35-45); Blood Gas Low PEEP Setting 0 cmH2O; MODE VENT - BIPHASIC; Respiratory Rate 9.5; Site A-Line
[2018-10-27 12:12] LABS: ADD MAN DIFF? NO
[2018-10-27 12:17] LABS: ABNORMAL IP MESSAGE 1; BASOPHILS % 0.1 % (0.0-2.0); HEMATOCRIT 21.8 % (37.0-47.0); HEMOGLOBIN 7.1 g/dl (12.0-16.0); LYMPHOCYTES # 0.1 10^3/ul (0.8-2.9); LYMPHOCYTES % 1.3 % (15.0-51.0); MEAN CORPUSCULAR HEMOGLOBIN 28.2 pg (29.0-33.0); MEAN CORPUSCULAR HGB CONC 32.6 g/dl (32.0-37.0); MEAN CORPUSCULAR VOLUME 86.5 fl (82.0-101.0); MEAN PLATELET VOLUME 10.6 fl (7.4-10.4); MONOCYTE # 0.2 10^3/ul (0.3-0.9); NEUTROPHIL # 7.5 10^3/ul (1.6-7.5); NEUTROPHILS % 94.1 % (39.0-77.0); NUCLEATED RED BLOOD CELLS% 0.5 /100WBC (0.0-0.0); PLATELET COUNT 106 10^3/UL (140-415); RED BLOOD COUNT 2.52 10^6/ul (4.20-5.40); RED CELL DISTRIBUTION WIDTH 16.9 % (11.5-14.5)
[2018-10-27 12:21] LABS: POSITIVE DIFF @See below
[2018-10-27 12:33] LABS: INR 1.32; PROTIME 16.5 Sec (11.9-14.9); PT RATIO 1.3
[2018-10-27 12:34] LABS: PARTIAL THROMBOPLASTIN TIME 25.7 Sec (23.0-35.0)
[2018-10-27 12:49] LABS: ALANINE AMINOTRANSFERASE 39 IU/L (13-69); ALBUMIN 4.6 g/dl (3.3-4.9); ALBUMIN/GLOBULIN RATIO 1.58; ALKALINE PHOSPHATASE 49 IU/L (42-121); AMYLASE 68 U/L (11-123); ANION GAP 10 (5-13); ASPARTATE AMINO TRANSFERASE 82 IU/L (15-46); BILIRUBIN,INDIRECT 0.7 mg/dl (0-1.1); BILIRUBIN,TOTAL 1.1 mg/dl (0.2-1.3); BLOOD UREA NITROGEN 43 mg/dl (7-20); CALCIUM 9.7 mg/dl (8.4-10.2); CARBON DIOXIDE 32 mmol/L (21-31); CHLORIDE 103 mmol/L (97-110); CK-MB 3.28 ng/ml (0.0-2.4); CREATINE KINASE 208 IU/L (23-200); CREATININE 0.82 mg/dl (0.44-1.00); Estimated GFR > 60 mL/min (>60); GLUCOSE 127 mg/dl (70-220); LIPASE 83 U/L (23-300); MAGNESIUM 2.4 mg/dl (1.7-2.5); PHOSPHORUS 2.9 mg/dl (2.5-4.9); SODIUM 145 mmol/L (135-144); TOTAL PROTEIN 7.5 g/dl (6.1-8.1)
[2018-10-27 12:53] LABS: POTASSIUM 2.5 mmol/L (3.5-5.1)
[2018-10-27] MEDS ORDERED: POTASSIUM CHLORIDE 50 ML (12:57)
[2018-10-27] MEDS: POTASSIUM CHLORIDE (SR) 20 MEQ TAB PO (13:03)
[2018-10-27 13:50] LABS: OSMOLALITY 306 mOsm/kg (280-295)
[2018-10-27 19:09] LABS: ABNORMAL IP MESSAGE 1; HEMATOCRIT 22.1 % (37.0-47.0); HEMOGLOBIN 7.2 g/dl (12.0-16.0); MEAN CORPUSCULAR HEMOGLOBIN 28.1 pg (29.0-33.0); MEAN CORPUSCULAR HGB CONC 32.6 g/dl (32.0-37.0); MEAN CORPUSCULAR VOLUME 86.3 fl (82.0-101.0); MEAN PLATELET VOLUME 10.1 fl (7.4-10.4); NUCLEATED RED BLOOD CELLS% 0.2 /100WBC (0.0-0.0); PLATELET COUNT 111 10^3/UL (140-415); RED BLOOD COUNT 2.56 10^6/ul (4.20-5.40); RED CELL DISTRIBUTION WIDTH 16.9 % (11.5-14.5)
[2018-10-27 19:09] LABS: WHITE BLOOD COUNT 8.2 10^3/ul (4.8-10.8)
[2018-10-27 19:12] LABS: AADO2 Arterial 67.8 mmHg (7.0-24.0); Arterial Base Excess 0.3 mmol/L (-3.0-3); Arterial Blood Gas Oxygen Sat 98.5 mmHG (95.0-98.0); Arterial COHb 0.3 % (0.0-3.0); Arterial Fraction of Oxyhgb 97.7 % (93.0-99.0); Arterial HCO3 25.7 mmol/L (22.0-26.0); Arterial MetHb 0.5 % (0.0-1.5); Arterial pCO2 45.3 mmhg (35-45); Blood Gas Low PEEP Setting 0 cmH2O; MODE VENT - BIPHASIC; Respiratory Rate 9.5; Site A-Line
[2018-10-27 19:15] LABS: POSITIVE DIFF @See below
[2018-10-27 19:17] LABS: ADD MAN DIFF? YES
[2018-10-27 19:27] LABS: LACTIC ACID 1.4 mmol/L (0.5-2.0)
[2018-10-27 19:28] LABS: PROTIME 16.3 Sec (11.9-14.9); PT RATIO 1.3
[2018-10-27 19:29] LABS: PARTIAL THROMBOPLASTIN TIME 25.1 Sec (23.0-35.0)
[2018-10-27 19:35] LABS: ALANINE AMINOTRANSFERASE 42 IU/L (13-69); ALBUMIN 4.8 g/dl (3.3-4.9); ALBUMIN/GLOBULIN RATIO 1.54; ALKALINE PHOSPHATASE 55 IU/L (42-121); AMYLASE 73 U/L (11-123); ANION GAP 11 (5-13); ASPARTATE AMINO TRANSFERASE 89 IU/L (15-46); BILIRUBIN,INDIRECT 0.8 mg/dl (0-1.1); BILIRUBIN,TOTAL 1.7 mg/dl (0.2-1.3); BLOOD UREA NITROGEN 44 mg/dl (7-20); CALCIUM 9.9 mg/dl (8.4-10.2); CARBON DIOXIDE 32 mmol/L (21-31); CHLORIDE 105 mmol/L (97-110); CREATINE KINASE 200 IU/L (23-200); CREATININE 0.82 mg/dl (0.44-1.00); Estimated GFR > 60 mL/min (>60); GLUCOSE 161 mg/dl (70-220); LIPASE 69 U/L (23-300); MAGNESIUM 2.4 mg/dl (1.7-2.5); SODIUM 148 mmol/L (135-144); TOTAL PROTEIN 7.9 g/dl (6.1-8.1)
[2018-10-27 19:41] LABS: POTASSIUM 2.8 mmol/L (3.5-5.1)
[2018-10-27 19:44] LABS: CK-MB 3.27 ng/ml (0.0-2.4)
[2018-10-27] MEDS: POTASSIUM CHLORIDE 20 MEQ POWDER FOR ORAL SOLN GTB (20:02)
[2018-10-27 20:04] LABS: ANISOCYTOSIS 1+ (0-0); BAND NEUTROPHILS #M 0.1 10^3/ul (0.0-0.6); BAND NEUTROPHILS % (M) 2 % (0-4); BURR CELLS 2+ (0-0); HYPOCHROMASIA 1+ (0-0); LYMPHOCYTES % (M) 1 % (15-51); MICROCYTOSIS 1+ (0-0); PLATELET ESTIMATE DECREASED; POIKILOCYTOSIS 2+ (0-0); POLYCHROMASIA 1+ (0-0); SEGMENTED NEUTROPHILS (M) % 97 % (39-77)
[2018-10-27 20:16] LABS: OSMOLALITY 314 mOsm/kg (280-295)
[2018-10-27] MEDS ORDERED: HEPARIN 1000 UNITS/ML 10 ML INJ (21:11)
[2018-10-27] MEDS ORDERED: FUROSEMIDE 40 MG INJ IV (22:00)
[2018-10-27] MEDS ORDERED: MANNITOL 25% 50 ML INJ IV (22:00)
[2018-10-27] MEDS ORDERED: FUROSEMIDE 100 MG INJ IV (22:30)
== END 2018-10-27 22:00 | disposition expired | DRG 951 ==
LOC: ICU 15:10
PROC: 4A023N8 Measurement of Cardiac Sampling and Pressure, Bilateral, Percutaneous Approach (ICD-10-PCS; principal; 2018-10-25 11:00)
PROC: B211YZZ Fluoroscopy of Multiple Coronary Arteries using Other Contrast (ICD-10-PCS; 2018-10-25 11:00)
PROC: 04HL33Z Insertion of Infusion Device into Left Femoral Artery, Percutaneous Approach (ICD-10-PCS; 2018-10-25 11:05)
PROC: 30233N1 Transfusion of Nonautologous Red Blood Cells into Peripheral Vein, Percutaneous Approach (ICD-10-PCS; 2018-10-25 11:05)
PROC: 5A1955Z Respiratory Ventilation, Greater than 96 Consecutive Hours (ICD-10-PCS; 2018-10-25 11:05)
DX: Z52.89 Donor of other specified organs or tissues (principal)
CPT/HCPCS: 36430; 36600; 71045; 71250; 74018; 74176; 76700; 80048; 80053; 80076; 80202; 81001; 82150; 82247; 82248; 82330; 82550; 82553; 82803; 82947; 82962; 83605; 83615; 83625; 83690; 83735; 83930; 84100; 84484; 85014; 85018; 85025; 85610; 85730; 86850; 86900; 86901; 86920; 87040-91; 87070; 87086; 88307; 88313; 89220; 93005; 93306; 93460; 94002; 94003; 94770; J1250